=== PATIENT | male | born 1995 | race Caucasian/White ===

== ENCOUNTER 2016-10-13 19:09 | Inpatient (IN) | payer OTHER ==
[~2016-10-13] VITALS: Ht 180.3 cm; Wt 66.1 kg
[2016-10-13] VITALS (7 sets, daily range): BP systolic 115–129; BP diastolic 51–68; PULSE 92–108; RESP 20; TEMP 97.3–98.3; O2SAT 98–100
[~2016-10-13 19:09] MED LIST: NOVO7030P2 SQ
[2016-10-13] MEDS ORDERED: SODIUM CHLOR 0.9% 1000 ML INJ 1,000 ML IV ONE ×2 (19:19→19:49)
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
[2016-10-13] MEDS ORDERED: SODIUM CHLORIDE 0.9% FLUSH 5 ML FLUSH IVF PRN ×2 (19:30→21:45)
[2016-10-13] MEDS ORDERED: ONDANSETRON HCL 4 MG/2 ML VIAL IV PUSH ONE (19:30)
[2016-10-13 19:37] LABS: BLOOD GAS VENOUS BASE EXCESS -23.1 mmol/L (-2-2); BLOOD GAS VENOUS HCO3 6 mmol/L (22-26); BLOOD GAS VENOUS O2 CONTENT 16.2 Vol % (9.0-17.0); BLOOD GAS VENOUS O2 HGB SAT 70 % (70-76); BLOOD GAS VENOUS PCO2 25 mmHg (44-48); BLOOD GAS VENOUS PO2 49 mmHg (35-40); TEMP CORR TO 98.6
[2016-10-13 19:39] LABS: CRITICAL VALUE YES; DRAW SITE R ARM; FIO2 21 %; STAT YES
[2016-10-13 19:44] LABS: AUTOMATED NEUTROPHIL # 15.1 TH/MM3 (1.8-7.7); BASOPHIL % 0.2 % (0.0-2.0); EOSINOPHIL % 0.1 % (0.0-4.0); HEMATOCRIT 48.9 % (39.0-51.0); LYMPH % 10.5 % (9.0-44.0); LYMPHOCYTE # 1.9 TH/MM3 (1.0-4.8); MEAN CELL VOLUME 84.2 FL (80.0-100.0); MEAN CORPUSCULAR HEMOGLOBIN 27.8 PG (27.0-34.0); MONO % 5.6 % (0.0-8.0); NEUT % 83.6 % (16.0-70.0); PLATELET COUNT 247 TH/MM3 (150-450)
[2016-10-13 19:45] LABS: HEMO FLAGS AUTO DIFF
[2016-10-13] MEDS ORDERED: INSULIN REGULAR (IV INFUSION) 100 UNITS in SODIUM CHLORIDE 0.9% INJ 99 ML IV SCH (19:45)
[2016-10-13] MEDS ORDERED: SODIUM BICARBONATE 8.4% SOLN 50 MEQ/50 ML VIAL IV PRN ×2 (19:45)
[2016-10-13] MEDS ORDERED: POTASSIUM CHLOR 40 MEQ PREMIX 100 ML IV PRN ×2 (19:45)
[2016-10-13] MEDS ORDERED: INSULIN HUMAN REGULAR 1,000 UNITS/10 ML VIAL IV PUSH ONE (19:45)
[2016-10-13] MEDS ORDERED: POTASSIUM CHLOR 20 MEQ PREMIX 100 ML IV PRN ×3 (19:45)
[2016-10-13] MEDS ORDERED: SODIUM PHOSPHATE INJ 15 MMOL in SODIUM CHLORIDE 0.9% INJ 100 ML IV PRN (19:45)
--- NOTE | 2016-10-13 19:51 | RADHPO ---
EXAM DATE/TIME: 10/13/2016 19:25 [place] COMPARISON: No previous studies available for comparison. INDICATIONS : Chest pain and short of breath. MEDICAL HISTORY : Diabetes mellitus type I. SURGICAL HISTORY : None. ENCOUNTER: Initial ACUITY: 1 day PAIN SCORE: 8/10 LOCATION: Bilateral chest FINDINGS: A single view of the chest demonstrates the lungs to be symmetrically aerated without evidence of mas s, infiltrate or effusion. The cardiomediastinal contours are unremarkable. Osseous structures are intact. CONCLUSION: No evidence of acute cardiopulmonary disease. Jimbo Zhao MD on October 13, 2016 at 19:50 Board Certified Radiologist. This report was verified electronically.
[2016-10-13 19:52] LABS: CHLORIDE 108 MEQ/L (98-107); SODIUM (NA) 142 MEQ/L (136-145)
[2016-10-13 19:56] LABS: ANION GAP 30 MEQ/L (5-15); BLOOD UREA NITROGEN 11 MG/DL (7-18); MAGNESIUM 2.1 MG/DL (1.5-2.5)
[2016-10-13 19:59] LABS: ALT (GPT) 49 U/L (12-78); AST (GOT) 29 U/L (15-37); GLOMERULAR FILTRATION RATE 76 ML/MIN (>89)
[2016-10-13 20:00] LABS: TOTAL BILIRUBIN ADULT 0.5 MG/DL (0.2-1.0)
[2016-10-13] MEDS: POTASSIUM CHLOR 20 MEQ PREMIX 100 ML IV PRN ×3 (20:00→22:13)
[2016-10-13 20:02] LABS: ALKALINE PHOSPHATASE 106 U/L (45-117)
[2016-10-13 20:03] LABS: PLATELET ESTIMATE SMEAR NORMAL (NORMAL); PLATELET MORPHOLOGY NORMAL (NORMAL); SCAN/DIFF AUTO DIFF CONFIRMED
[2016-10-13] MEDS: SODIUM CHLOR 0.9% 1000 ML INJ 1,000 ML IV SCH ×2 (20:12→23:43)
[2016-10-13] MEDS ORDERED: ACETAMINOPHEN 325 MG TAB PO PRN (20:15)
[2016-10-13] MEDS ORDERED: CHLORHEXIDINE GLUCONATE 2 % 1 PACK (2 CLOTHS) TOP PRN (20:15)
[2016-10-13] MEDS ORDERED: ACETAMINOPHEN/HYDROcodone 325 MG/10 MG TAB PO PRN (20:15)
[2016-10-13] MEDS ORDERED: BISACODYL 10 MG SUPP PR PRN (20:15)
[2016-10-13] MEDS ORDERED: SODIUM CHLORIDE 0.9% FLUSH 5 ML FLUSH FLUSH PRN (20:15)
[2016-10-13] MEDS ORDERED: ACETAMINOPHEN/HYDROcodone 325 MG/5 MG TAB PO PRN (20:15)
[2016-10-13] MEDS ORDERED: MISCELLANEOUS NURSING INFORMATION XX SCH (20:15)
[2016-10-13] MEDS ORDERED: ONDANSETRON HCL 4 MG/2 ML VIAL IVP PRN (20:15)
[2016-10-13 20:22] LABS: BETA-HYDROXYBUTYRATE 10.21 MMOL/L (0.00-0.39)
[2016-10-13] MEDS ORDERED: SODIUM CHLORIDE 0.9% FLUSH 5 ML FLUSH FLUSH SCH (21:00)
[2016-10-13] MEDS: DEXT 5%-NACL 0.9% 1000 ML INJ 1,000 ML IV SCH (21:45)
[2016-10-13 22:07] LABS: BLOOD, URINE TRACE (NEG); GLUCOSE,URINE 500 mg/dL (NEG); KETONE, URINE 80 OR GREATER mg/dL (NEG); NITRITE,URINE NEG (NEG); PH, URINE 5.5 (5.0-8.5)
[2016-10-13 22:10] LABS: URINE COLOR STRAW (YELLW/STRAW)
[2016-10-13 22:11] LABS: COMMENT (UR) CULT NOT INDICATED; CULTURE IF INDICATED CULT NOT INDICATED; RBC, URINE 0-3 /hpf (0-3); SQUAMOUS EPITHELIAL CELL URINE 0-5 /hpf (0-5); WBC, URINE 0-2 /hpf (0-5)
[2016-10-14] VITALS (25 sets, daily range): BP systolic 90–113; BP diastolic 7–73; PULSE 10–108; RESP 14–20; TEMP 98–98.1; O2SAT 97–100
[2016-10-14] MEDS: POTASSIUM CHLOR 20 MEQ PREMIX 100 ML IV PRN ×4 (00:37→08:45)
[2016-10-14] MEDS: DEXT 5%-NACL 0.9% 1000 ML INJ 1,000 ML IV SCH ×2 (00:43→08:10)
[2016-10-14 01:58] LABS: BICARBONATE 7.8 MEQ/L (21.0-32.0); MAGNESIUM 2.1 MG/DL (1.5-2.5); POTASSIUM 4.2 MEQ/L (3.5-5.1)
[2016-10-14] MEDS: SODIUM CHLOR 0.9% 1000 ML INJ 1,000 ML IV SCH (03:43)
[2016-10-14] MEDS: CHLORHEXIDINE GLUCONATE 2 % 1 PACK (2 CLOTHS) TOP SCH (04:00)
[2016-10-14 07:46] LABS: AUTOMATED NEUTROPHIL # 6.4 TH/MM3 (1.8-7.7); BASOPHIL # 0.1 TH/MM3 (0-0.2); BASOPHIL % 1.2 % (0.0-2.0); EOSINOPHIL % 0.3 % (0.0-4.0); HEMATOCRIT 39.4 % (39.0-51.0); HEMO FLAGS DIFF FINAL; LYMPH % 26.3 % (9.0-44.0); LYMPHOCYTE # 2.7 TH/MM3 (1.0-4.8); MEAN CELL VOLUME 82.7 FL (80.0-100.0); MEAN CORPUSCULAR HEMOGLOBIN 27.8 PG (27.0-34.0); MEAN CORPUSCULAR HGB CONC 33.6 % (32.0-36.0); MONO % 8.7 % (0.0-8.0); NEUT % 63.5 % (16.0-70.0); PLATELET COUNT 185 TH/MM3 (150-450); RED BLOOD COUNT 4.77 MIL/MM3 (4.50-5.90); RED CELL DISTRIBUTION WIDTH 12.1 % (11.6-17.2); WHITE BLOOD COUNT 10.1 TH/MM3 (4.0-11.0)
[2016-10-14 07:58] LABS: BICARBONATE 17.8 MEQ/L (21.0-32.0); MAGNESIUM 1.9 MG/DL (1.5-2.5); POTASSIUM 3.3 MEQ/L (3.5-5.1)
[2016-10-14 08:20] LABS: BETA-HYDROXYBUTYRATE 1.05 MMOL/L (0.00-0.39)
[2016-10-14] MEDS: SODIUM CHLORIDE 0.9% FLUSH 5 ML FLUSH IVF SCH ×2 (08:49→21:00)
--- NOTE | 2016-10-14 08:59 | HHI.HP ---
[facility] Service [facility] Primary Care Physician No Primary Care Physician Admission Diagnosis DKA; sirs Diagnoses: (1) SIRS (systemic inflammatory response syndrome) Diagnosis: Principal (2) DKA (diabetic ketoacidosis) Diagnosis: Principal (3) Hypokalemia Diagnosis: Principal Chief Complaint: "In DKA" Travel History International Travel<30 Days: No Contact w/Intl Traveler <30 Da: No Traveled to Known Affected Are: No Sepsis Criteria SIRS Criteria (2 or more): Heart rate over 90, WBC > 77818, < 4000 or > 10% bands Criteria Outcome: Meets SIRS criteria History of Present Illness 20-year-old male, type I diabetic presents stating he is in DKA. The patient states it's been a while since his last episode although he was recently admitted in May of this year for DKA and this is the 6th time this year he has been admitted for DKA. The patient states he stayed the night at his cousin's house and forgot to take his insulin just overnight. He admits to polyuria and polydipsia. Admits to vomiting. Denies any headache, blurred vision, cough, chest pain, shortness of breath, diarrhea, or constipation. He desires something to drink. Review of Systems Other ROS x 10 negative unless otherwise indicated in HPI. Past Family Social History Past Medical History Type 1 diabetes Right hand fracture Past Surgical History Tonsillectomy Reported Medications Novolin 70/30 (Insulin Human Isoph/Insulin Regular) 100 Units/Ml Inj 25 Units SQ BID, confirmed with patient Allergies: Coded Allergies: No Known Allergies (Verified , 06/07/16) Family History No significant family history. Social History Patient smokes one pack per day of cigarettes. Denies alcohol use. Denies illicit drug use including IVDA. Physical Exam Vital Signs Vital Signs Date Time Temp Pulse Resp B/P Pulse Ox O2 Delivery O2 Flow Rate FiO2 10/14/16 07:35 14 98 Room Air 10/14/16 07:35 72 14 98 Room Air 10/14/16 07:25 98.0 72 14 98/50 98 Room Air 10/14/16 06:24 80 20 101/49 99 10/14/16 05:00 84 20 99/45 98 10/14/16 04:00 84 20 109/54 98 10/14/16 03:00 108 20 99/71 99 10/14/16 02:00 94 20 101/50 99 10/14/16 01:00 100 20 106/54 100 10/14/16 00:00 100 20 113/54 99 10/13/16 23:42 100 21 10/13/16 22:59 108 20 118/51 100 10/13/16 22:00 98.3 101 20 115/65 100 10/13/16 21:14 98 20 100 10/13/16 21:08 98.3 92 20 128/68 100 10/13/16 20:00 98 20 129/57 98 10/13/16 19:35 100 20 123/60 100 10/13/16 19:10 97.3 98 20 125/64 100 Physical Exam GENERAL: This is a well-nourished, well-developed patient, in no apparent distress. Appears tired. SKIN: No rashes, ecchymoses or lesions. Cool and dry. HEAD: Atraumatic. Normocephalic. EYES: Pupils normal. No scleral icterus. ENT: Mucous membranes dry. Poor dentition. Airway patent. NECK: Trachea midline. CARDIOVASCULAR: Regular rate and rhythm. RESPIRATORY: Clear to auscultation. Breath sounds equal bilaterally. No wheezes , rales, or rhonchi. GASTROINTESTINAL: Abdomen soft, non-tender, nondistended. MUSCULOSKELETAL: No lower extremity edema. NEUROLOGICAL: Awake and alert. Motor grossly within normal limits. Normal speech. Laboratory Laboratory Tests Test 10/13/16 10/13/16 10/13/16 10/14/16 19:30 21:30 22:00 01:36 White Blood Count 18.0 Red Blood Count 5.80 Hemoglobin 16.1 Hematocrit 48.9 Mean Corpuscular Volume 84.2 Mean Corpuscular Hemoglobin 27.8 Mean Corpuscular Hemoglobin 33.0 Concent Red Cell Distribution Width 12.0 Platelet Count 247 Mean Platelet Volume 8.9 Neutrophils (%) (Auto) 83.6 Lymphocytes (%) (Auto) 10.5 Monocytes (%) (Auto) 5.6 Eosinophils (%) (Auto) 0.1 Basophils (%) (Auto) 0.2 Neutrophils # (Auto) 15.1 Lymphocytes # (Auto) 1.9 Monocytes # (Auto) 1.0 Eosinophils # (Auto) 0.0 Basophils # (Auto) 0.0 CBC Comment AUTO DIFF Differential Comment AUTO DIFF CONFIRMED Platelet Estimate NORMAL Platelet Morphology Comment NORMAL Red Cell Morphology Comment NORMAL Blood Gas Puncture Site R ARM Blood Gas Patient Temperature 98.6 Venous Blood pH 7.00 Venous Blood Partial Pressure 25 CO2 Venous Blood Partial Pressure 49 O2 Venous Blood HCO3 6 Venous Blood Oxygen Saturation 70 Venous Blood Oxygen Content 16.2 Venous Blood Base Excess -23.1 Blood Gas Inspired Oxygen 21 Sodium Level 142 146 Potassium Level 5.0 4.2 Chloride Level 108 119 Carbon Dioxide Level 4.0 7.8 Anion Gap 30 19 Blood Urea Nitrogen 11 8 Creatinine 1.20 1.10 Estimat Glomerular Filtration 76 84 Rate Random Glucose 383 229 Lactic Acid Level 2.5 0.8 Calcium Level 8.1 7.9 Phosphorus Level 5.9 1.4 Magnesium Level 2.1 2.1 Total Bilirubin 0.5 Aspartate Amino Transf 29 (AST/SGOT) Alanine Aminotransferase 49 (ALT/SGPT) Alkaline Phosphatase 106 Troponin I LESS THAN 0.02 Total Protein 8.0 Albumin 4.3 Lipase 71 B-Hydroxybutyrate 10.21 Urine Color STRAW Urine Turbidity CLEAR Urine pH 5.5 Urine Specific [place] 1.021 Urine Protein 30 Urine Glucose (UA) 500 Urine Ketones 80 OR GREATER Urine Occult Blood TRACE Urine Nitrite NEG Urine Bilirubin NEG Urine Leukocyte Esterase NEG Urine RBC 0-3 Urine WBC 0-2 Urine Squamous Epithelial 0-5 Cells Urine Bacteria NONE Microscopic Urinalysis Comment CULT NOT INDICATED Test 10/14/16 07:35 White Blood Count 10.1 Red Blood Count 4.77 Hemoglobin 13.3 Hematocrit 39.4 Mean Corpuscular Volume 82.7 Mean Corpuscular Hemoglobin 27.8 Mean Corpuscular Hemoglobin 33.6 Concent Red Cell Distribution Width 12.1 Platelet Count 185 Mean Platelet Volume 8.5 Neutrophils (%) (Auto) 63.5 Lymphocytes (%) (Auto) 26.3 Monocytes (%) (Auto) 8.7 Eosinophils (%) (Auto) 0.3 Basophils (%) (Auto) 1.2 Neutrophils # (Auto) 6.4 Lymphocytes # (Auto) 2.7 Monocytes # (Auto) 0.9 Eosinophils # (Auto) 0.0 Basophils # (Auto) 0.1 CBC Comment DIFF FINAL Differential Comment Sodium Level 147 Potassium Level 3.3 Chloride Level 120 Carbon Dioxide Level 17.8 Anion Gap 9 Blood Urea Nitrogen 7 Creatinine 1.00 Estimat Glomerular Filtration 93 Rate Random Glucose 163 Calcium Level 7.8 Phosphorus Level 1.2 Magnesium Level 1.9 B-Hydroxybutyrate 1.05 Date/Time Procedure Status Source Growth 10/13/16 20:05 Aerobic Blood Culture Received Blood Peripheral Pending 10/13/16 20:05 Anaerobic Blood Culture Received Blood Peripheral Pending Result Diagram: 10/14/16 0735 10/14/16 0735 Imaging Last Impressions Chest X-Ray 10/13/16 1919 Signed Impressions: Service Date/Time: Thursday, October 13, 2016 19:25 - CONCLUSION: No evidence of acute cardiopulmonary disease. Jimbo Zhao MD Assessment and Plan Assessment and Plan 20-year-old male with: SIRS: White blood cell count 18.0-->10.1. Tachycardic at 108. No source of infection. DKA: Improved. Patient had vomiting. BGL 383 in ED-->135 bedside just prior to evaluation. pH 7.00. Anion gap 30 now closed. Beta hydroxybutyrate 10.21 improved to 1.05. Lactic acid 2.5-->0.8. Phos 5.9-->1.4. Chest x-ray personally interpreted without acute abnormality. -Patient was started on DKA protocol with insulin drip. Discontinue insulin drip. Start on Novolin 70/30 15 units bid with medium SSI. Bedside Accu-checks. -NPO for now, ice chips -Zofran prn nausea -Monitor BMP -Hemoglobin A1c pending Hypokalemia: 5.0-->3.3 -RN instructed to replace via protocol -Monitor K+ level DVT prevention: SCDs Case management consulted for PCP follow-up, blue card if possible. Written by Zeny Mata PA-C acting as scribe for Dr. Rowell on 10/14/16 at ~ 0835. The documentation accurately reflects the work and decisions performed face-to- face by me Dr. Rowell on 10/14/16 at ~0835. Physician Certification 2 Midnight Certification Type: Admission for Inpatient Services Order for Inpatient Services The services are ordered in accordance with Medicare regulations or non- Medicare payer requirements, as applicable. In the case of services not specified as inpatient-only, they are appropriately provided as inpatient services in accordance with the 2-midnight benchmark. Estimated LOS (days): 2 days is the estimated time the patient will need to remain in the hospital, assuming treatment plan goals are met and no additional complications. Post-Hospital Plan: Home Problem Qualifiers (1) DKA (diabetic ketoacidosis): Qualified Code: E10.10 - Diabetic ketoacidosis without coma associated with type 1 diabetes mellitus Zeny Mata Oct 14, 2016 08:59
[2016-10-14] MEDS ORDERED: DEXTROSE 50% IN WATER 50 ML VIAL(D50) IV PUSH PRN (09:30)
[2016-10-14] MEDS ORDERED: GLUCAGON 1 MG/ML VIAL OTHER PRN (09:30)
[2016-10-14] MEDS ORDERED: DC previous DKA orders (HMC 1917) XX ONE (10:00)
[2016-10-14] MEDS: INSULIN ASPART SUPPLEMENTAL SCALE SQ SCH ×3 (11:00→22:00)
[2016-10-14] MEDS: NS + KCL 20 MEQ INJ 1,000 ML IV SCH ×2 (12:02→22:00)
--- NOTE | 2016-10-14 13:06 | EKG ---
Date Performed: 10/13/2016 Time Performed: 19:40:06 PTAGE: 20 years EKG: Sinus rhythm . Biphasic anterior T-waves Myocardial ischemia cannot be excluded Abnormal ECG Compared to PREVIOUS TRACING , there has been no significant serial change. PREVIOUS TRACIN 016 22.36 DOCTOR: Denisse Floyd Interpretating Date/Time 10/14/2016 13:05:15
[2016-10-14 13:58] LABS: BICARBONATE 17.9 MEQ/L (21.0-32.0); MAGNESIUM 1.6 MG/DL (1.5-2.5); POTASSIUM 3.6 MEQ/L (3.5-5.1)
[2016-10-14] MEDS ORDERED: INSULIN ASPART 1,000 UNITS/10 ML VIAL SQ ONE (14:00)
[2016-10-14] MEDS: INSULIN HUMAN NPH/R 70/30 1,000 UNITS/10 ML VIAL SQ SCH (17:05)
[2016-10-14 20:38] LABS: BETA-HYDROXYBUTYRATE 0.53 MMOL/L (0.00-0.39); MAGNESIUM 1.4 MG/DL (1.5-2.5); POTASSIUM 5.9 MEQ/L (3.5-5.1)
[2016-10-14 20:59] LABS: CALCIUM-PROTEIN CORRECTED 7.9 MG/DL (8.5-10.1)
[2016-10-15] VITALS (13 sets, daily range): BP systolic 92–111; BP diastolic 47–67; PULSE 46–80; RESP 15–18; TEMP 97.7–98; O2SAT 95–96
[2016-10-15] MEDS: CHLORHEXIDINE GLUCONATE 2 % 1 PACK (2 CLOTHS) TOP SCH (04:00)
[2016-10-15] MEDS: INSULIN ASPART SUPPLEMENTAL SCALE SQ SCH ×2 (06:30→12:02)
[2016-10-15] MEDS: INSULIN HUMAN NPH/R 70/30 1,000 UNITS/10 ML VIAL SQ SCH (07:43)
[2016-10-15] MEDS: NS + KCL 20 MEQ INJ 1,000 ML IV SCH (07:43)
[2016-10-15] MEDS: SODIUM CHLORIDE 0.9% FLUSH 5 ML FLUSH IVF SCH (07:45)
[2016-10-15 09:17] LABS: BICARBONATE 22.4 MEQ/L (21.0-32.0); CALCIUM-PROTEIN CORRECTED 8.5 MG/DL (8.5-10.1); MAGNESIUM 1.5 MG/DL (1.5-2.5); TOTAL BILIRUBIN ADULT 0.2 MG/DL (0.2-1.0)
[2016-10-15] MEDS ORDERED: POTASSIUM CHLORIDE 20 MEQ CONTROLLED RELEASE TAB PO ONE (11:45)
[2016-10-15] MEDS: MAGNESIUM SULFATE 1 GM PREMIX 100 ML IV SCH ×2 (12:02→13:32)
--- NOTE | 2016-10-15 12:28 | HHI.DCPOC ---
Discharge Care Plan Diagnosis: (1) SIRS (systemic inflammatory response syndrome) (2) DKA (diabetic ketoacidosis) (3) Hypokalemia Goals to Promote Your Health * To prevent worsening of your condition and complications * To maintain your health at the optimal level Directions to Meet Your Goals Take your medications as prescribed Follow your dietary instruction Follow activity as directed Keep your appointments as scheduled Take your immunizations and boosters as scheduled If your symptoms worsen call your PCP, if no PCP go to Urgent Care Center or Emergency Room Smoking is Dangerous to Your Health. Avoid second hand smoke Call the 24-hour hour crisis hotline for domestic abuse at Zeny Mata Oct 15, 2016 12:28
--- NOTE | 2016-10-15 12:39 | HHI.PR ---
Subjective Remarks F/u for DKA. Patient improved. Eating when we enter the room. No acute complaints. Objective Vitals Vital Signs Date Time Temp Pulse Resp B/P Pulse Ox O2 Delivery O2 Flow Rate FiO2 10/15/16 12:11 50 10/15/16 10:00 50 10/15/16 09:00 64 18 106/55 10/15/16 08:00 50 10/15/16 08:00 98.0 54 15 97/57 10/15/16 07:00 46 15 93/49 10/15/16 06:00 59 10/15/16 05:00 50 16 102/67 96 10/15/16 04:00 98.0 69 16 95/47 95 10/15/16 04:00 65 10/15/16 03:00 66 16 92/52 96 10/15/16 02:00 54 16 103/58 96 10/15/16 02:00 80 10/15/16 00:30 98.0 57 18 111/59 96 10/15/16 00:30 77 10/14/16 23:54 74 16 99/52 99 Room Air 10/14/16 21:52 78 16 90/49 10/14/16 20:00 98 21 10/14/16 19:33 98 Room Air 10/14/16 19:33 85 97/56 98 Room Air 10/14/16 18:25 67 15 101/51 100 Room Air 10/14/16 17:25 75 15 110/57 99 Room Air 10/14/16 16:25 98.1 66 15 97/52 99 Room Air 10/14/16 15:25 64 16 103/51 98 Room Air 10/14/16 14:25 66 15 99/54 98 Room Air 10/14/16 13:25 68 14 107/52 98 Room Air I/O 10/14/16 10/14/16 10/14/16 10/15/16 10/15/16 10/15/16 07:00 15:00 23:00 07:00 15:00 23:00 Intake Total 1000 ml 992 ml 120 ml Output Total 800 ml 1145 ml 600 ml 450 ml 250 ml Balance 200 ml -1145 ml -600 ml 542 ml -130 ml Intake Oral 480 ml 120 ml IV Total 1000 ml 512 ml Output Urine Total 800 ml 1145 ml 600 ml 450 ml 250 ml # Voids 2 1 # Bowel Movements 0 Result Diagram: 10/14/16 0735 10/15/16 0837 Objective Remarks GENERAL: Well nourished, well developed patient in no apparent distress sitting in chair eating. SKIN: Warm and dry. HEAD: Atraumatic. Normocephalic. EYES: No scleral icterus. No injection or drainage. CARDIOVASCULAR: Regular rate and rhythm. RESPIRATORY: No accessory muscle use. Clear to auscultation. Breath sounds equal bilaterally. MUSCULOSKELETAL: No lower extremity edema. NEUROLOGICAL: Awake and alert. Motor grossly within normal limits. Normal speech. PSYCHIATRIC: Appropriate mood and affect; insight and judgment normal. Urinary Catheter: No Vascular Central Line Catheter: No A/P Problem List: (1) SIRS (systemic inflammatory response syndrome) ICD Code: R65.10 Status: Acute (2) DKA (diabetic ketoacidosis) ICD Code: E13.10 Status: Acute (3) Hypokalemia ICD Code: E87.6 Status: Acute Assessment and Plan 20-year-old male with: SIRS: White blood cell count 18.0-->10.1. Tachycardia at 108 resolved. No source of infection. DKA: Improved. BGL 186 at 1202. Patient had vomiting. BGL 383 in ED. pH 7.00. Anion gap 30 now closed. Beta hydroxybutyrate 10.21 improved to 0.53. Lactic acid 2.5-->0.8. Chest x-ray personally interpreted without acute abnormality. -Patient was started on DKA protocol with insulin drip. Insulin drip discontinued. Continue Novolin 70/30 15 units bid with medium SSI. Bedside Accu- checks. -Diabetic diet -Zofran prn nausea -Monitor BMP -Hemoglobin A1c pending Hypokalemia: 3.0. Mg 1.5 -40 mEq po KCl ordered. 2 g IV Mg sulfate ordered. DVT prevention: SCDs Written by Zeny Mata PA-C acting as scribe for Dr. Kendrick on 10/15/16 at ~ 1215. The documentation accurately reflects the work and decisions performed face-to- face by me Dr. Kendrick on 10/15/16 at ~1215. Discharge disposition: Home in stable condition Diet: Diabetic Medications: Resume Novolin 70/30 25 units bid. Patient states he has enough. Activity: Regular Follow up: PCP 2-3 days. Discharge Planning Patient stable for discharge. Case management consulted for PCP follow-up, blue card if possible. I spoke with CM who will speak with patient. Patient can get glucometer over the counter per CM since he is self pay. Problem Qualifiers (1) DKA (diabetic ketoacidosis): Qualified Code: E10.10 - Diabetic ketoacidosis without coma associated with type 1 diabetes mellitus Zeny Mata Oct 15, 2016 12:38
[2016-10-15 17:40] LABS: HEMOGLOBIN A1a 1.7 %; HEMOGLOBIN A1b 1.2 %; HEMOGLOBIN F 2.7 %; HEMOGLOBIN LA1C 3.4 %; HEMOGLOBIN P3 5.2 %
[2016-10-23] MEDS ORDERED: NOVO7030P2 SQ ×3 (15:50→17:06)
[2016-10-23] MEDS ORDERED: BLOOD GLUCOSE T1 TES ×2 (16:34→17:06)
[2016-10-23] MEDS ORDERED: NOVORP2 SQ (17:03)
[2016-10-24] MEDS ORDERED: NOVO7030P2 SQ (15:17)
== END 2016-10-15 14:55 | disposition home or self-care (01) | DRG 639 ==
LOC: PHED 19:09 → PHEDA 21:38 → PHEDH 10-14 00:32 → PHICU 10-15 00:29
PROVIDERS: ADMIT Family Medicine; ATTEND Family Medicine
DX: E10.10 Type 1 diabetes mellitus with ketoacidosis without coma (principal); E87.6 Hypokalemia; F17.210 Nicotine dependence, cigarettes, uncomplicated; Z79.4 Long term (current) use of insulin
CPT/HCPCS: 71010; 80048; 80053; 81001; 82010; 82805; 82948; 83036; 83605; 83690; 83735; 84100; 84155; 84484; 85025; 87040; 87205; 87641; 93005; 96361; 96365; 96366; 96368; 96374; 96375; 96376; J1815; J1817; J2405; J3475; J3480; J7030; J7042

== ENCOUNTER 2017-05-16 22:53 | Emergency (ER) | payer OTHER ==
[~2017-05-16] VITALS: Ht 180.3 cm; Wt 71.8 kg
[~2017-05-16 22:53] MED LIST changes: +BLOOD GLUCOSE T1 TES
[2017-05-16 22:56] VITALS: BP 120/63; PULSE 75; RESP 16; TEMP 97.9; O2SAT 99
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
[2017-05-16] MEDS ORDERED: ACETAMINOPHEN/HYDROcodone 325 MG/5 MG TAB PO ONE (23:30)
[2017-05-16] MEDS ORDERED: IBUPROFEN 600 MG TAB PO ONE (23:30)
[2017-05-16] MEDS ORDERED: ZOLO25TA PO (23:41)
[2017-05-16] MEDS ORDERED: NOVO7030P2 SQ (23:43)
[2017-05-16] MEDS: LIDOCAINE HCL 1% PF 30 ML VIAL INFIL ONE (23:45)
--- NOTE | 2017-05-16 23:46 | RADRPT ---
EXAM DATE/TIME: 05/16/2017 23:14 [facility] COMPARISON: No previous studies available for comparison. INDICATIONS : Patient slammed distal right 4th digit in car door today MEDICAL HISTORY : Prev. 5th metacarpal fracture SURGICAL HISTORY : None. ENCOUNTER: Initial ACUITY: 1 day PAIN SCORE: 10/10 LOCATION: Right distal 4th digit FINDINGS: There is a fracture of the distal tuft of the fourth digit. No intra-articular extension is present. Bony mineralization is normal. Old fracture of the fifth metacarpal is present. CONCLUSION: 1. Fracture distal phalanx fourth digit Pedro Singh MD on May 16, 2017 at 23:43 Board Certified Radiologist. This report was verified electronically.
[2017-05-16] MEDS ORDERED: CEPH-460 PO (23:54)
[2017-05-16] MEDS ORDERED: HYDR-3533 PO (23:54)
[2017-05-17] MEDS ORDERED: CEPHALEXIN MONOHYDRATE 500 MG CAP PO ONE
[2017-05-17 00:45] VITALS: RESP 18
[2017-05-17] MEDS: LIDOCAINE HCL 1% PF 30 ML VIAL INFIL ONE (00:48)
[2017-05-17 01:28] VITALS: BP 100/58
== END 2017-05-17 01:29 | disposition home or self-care (01) ==
LOC: PHED 22:53
DX: S62.634A Displaced fracture of distal phalanx of right ring finger, initial encounter for closed fracture (principal); W23.0XXA Caught, crushed, jammed, or pinched between moving objects, initial encounter
CPT/HCPCS: 29130; 64450; 73140

== ENCOUNTER 2017-07-11 20:37 | Emergency (ER) | payer SELFPAY ==
[~2017-07-11] VITALS: Ht 180.3 cm; Wt 67.6 kg
[~2017-07-11 20:37] MED LIST changes: -BLOOD GLUCOSE T1 TES; +CEPH-460 PO; +HYDR-3533 PO; +ZOLO25TA PO
[2017-07-11] MEDS ORDERED: IOHEXOL 350 MG/ML 10 ML VIAL (for RAD DIAG) IVCONTRAST ONE (20:38)
[2017-07-11 20:41] VITALS: BP 111/61; PULSE 80; RESP 14; TEMP 98.4; O2SAT 96
[2017-07-11] MEDS ORDERED: SODIUM CHLOR 0.9% 1000 ML INJ 1,000 ML IV SCH (20:58)
[2017-07-11] MEDS ORDERED: ONDANSETRON HCL 4 MG/2 ML VIAL IVP ONE (21:00)
[2017-07-11] MEDS ORDERED: MORPHINE SULFATE 4 MG/ML INJ IV PUSH ONE (21:00)
[2017-07-11] MEDS ORDERED: SODIUM CHLORIDE 0.9% FLUSH 10 ML FLUSH IV FLUSH PRN (21:00)
[2017-07-11 21:14] VITALS: BP 102/67; PULSE 76; RESP 20; O2SAT 96
[2017-07-11 21:16] LABS: AUTOMATED NEUTROPHIL # 3.6 TH/MM3 (1.8-7.7); BASOPHIL % 0.2 % (0.0-2.0); EOSINOPHIL # 0.1 TH/MM3 (0-0.4); HEMATOCRIT 46.4 % (39.0-51.0); HEMO FLAGS DIFF FINAL; LYMPH % 19.7 % (9.0-44.0); LYMPHOCYTE # 1.1 TH/MM3 (1.0-4.8); MEAN CORPUSCULAR HEMOGLOBIN 28.4 PG (27.0-34.0); MEAN CORPUSCULAR HGB CONC 33.8 % (32.0-36.0); NEUT % 66.1 % (16.0-70.0); PLATELET COUNT 227 TH/MM3 (150-450); RED BLOOD COUNT 5.52 MIL/MM3 (4.50-5.90); RED CELL DISTRIBUTION WIDTH 12.2 % (11.6-17.2); WHITE BLOOD COUNT 5.5 TH/MM3 (4.0-11.0)
[2017-07-11 21:23] LABS: CHLORIDE 98 MEQ/L (98-107); POTASSIUM 4.1 MEQ/L (3.5-5.1); SODIUM (NA) 131 MEQ/L (136-145)
[2017-07-11 21:28] LABS: ANION GAP 9 MEQ/L (5-15); BICARBONATE 23.8 MEQ/L (21.0-32.0); BLOOD UREA NITROGEN 15 MG/DL (7-18)
[2017-07-11 21:31] LABS: ALT (GPT) 36 U/L (12-78); AST (GOT) 14 U/L (15-37); GLOMERULAR FILTRATION RATE 93 ML/MIN (>89)
[2017-07-11 21:32] LABS: TOTAL BILIRUBIN ADULT 0.5 MG/DL (0.2-1.0)
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
[2017-07-11 21:34] LABS: ALKALINE PHOSPHATASE 92 U/L (45-117)
[2017-07-11] MEDS ORDERED: SODIUM CHLOR 0.9% 1000 ML INJ 1,000 ML IV ONE (22:00)
[2017-07-11] MEDS ORDERED: INSULIN HUMAN REGULAR 1,000 UNITS/10 ML VIAL IV PUSH ONE (22:00)
[2017-07-11] MEDS ORDERED: ZOLO50TA PO (22:02)
[2017-07-11 22:15] VITALS: BP 116/62; PULSE 63; RESP 20; O2SAT 96
--- NOTE | 2017-07-11 22:23 | RADRPT ---
EXAM DATE/TIME: 07/11/2017 21:54 [facility] COMPARISON: CT ABDOMEN & PELVIS W CONTRAST, February 27, 2016, 7:19. INDICATIONS : Abdominal pain with nausea, vomiting and diarrhea. IV CONTRAST: 96 cc Omnipaque 350 (iohexol) IV ORAL CONTRAST: No oral contrast ingested. RADIATION DOSE: 6.13 CTDIvol (mGy) MEDICAL HISTORY : Diabetes mellitus type 1. SURGICAL HISTORY : None. ENCOUNTER: Initial ACUITY: 1 day PAIN SCALE: 8/10 LOCATION: middle abdomen TECHNIQUE: Volumetric scanning of the abdomen and pelvis was performed. Using automated exposure control and ad justment of the mA and/or kV according to patient size, radiation dose was kept as low as reasonably achievable to obtain optimal diagnostic quality images. DICOM format image data is available electro nically for review and comparison. FINDINGS: LOWER LUNGS: The visualized lower lungs are clear. LIVER: Homogeneous density without lesion. There is no dilation of the biliary tree. No calcified gallston es. SPLEEN: Normal size without lesion. PANCREAS: Within normal limits. KIDNEYS: Normal in size and shape. There is no mass, stone or hydronephrosis. ADRENAL GLANDS: Within normal limits. VASCULAR: There is no aortic aneurysm. BOWEL/MESENTERY: The stomach, small bowel, and colon demonstrate no acute abnormality. There is no free intraperitone al air or fluid. I don't clearly see the appendix but no right lower quadrant inflammatory changes ar e seen. ABDOMINAL WALL: Within normal limits. RETROPERITONEUM: There is no lymphadenopathy. BLADDER: No wall thickening or mass. REPRODUCTIVE: Within normal limits. INGUINAL: There is no lymphadenopathy or hernia. MUSCULOSKELETAL: No acute bony abnormality demonstrated. Mild S. shaped thoracolumbar curvature again noted. CONCLUSION: No acute abnormality demonstrated. Jimbo Zhao MD on July 11, 2017 at 22:20 Board Certified Radiologist. This report was verified electronically.
[2017-07-11] MEDS ORDERED: TRAM50TA PO (22:40)
[2017-07-11] MEDS ORDERED: ZOFR4TAB3 SL (22:40)
[2017-07-11] MEDS ORDERED: traMADol HCL 50 MG TAB PO ONE (22:45)
[2017-07-11 22:58] VITALS: BP 113/74
== END 2017-07-11 23:02 | disposition home or self-care (01) ==
LOC: PHED 20:37
DX: K52.9 Noninfective gastroenteritis and colitis, unspecified (principal); F17.200 Nicotine dependence, unspecified, uncomplicated; E10.65 Type 1 diabetes mellitus with hyperglycemia; Z79.4 Long term (current) use of insulin
CPT/HCPCS: 74177; 80053; 83690; 85025; 96361; 96374; 96375; 99285; J1815; J2270; J2405; J7030; Q9967

== ENCOUNTER 2017-09-27 02:30 | Emergency (ER) | payer SELFPAY ==
[~2017-09-27] VITALS: Ht 180.3 cm; Wt 76.7 kg
[~2017-09-27 02:30] MED LIST changes: -CEPH-460 PO; -HYDR-3533 PO; +TRAM50TA PO; +ZOFR4TAB3 SL; -ZOLO25TA PO; +ZOLO50TA PO
[2017-09-27 02:47] VITALS: BP 128/79; PULSE 69; RESP 18; TEMP 98.4; O2SAT 98
[2017-09-27 04:06] VITALS: BP 121/64; PULSE 64; RESP 16; TEMP 98.4; O2SAT 99
[2017-09-27] MEDS ORDERED: DIPH25CA PO (04:36)
[2017-09-27] MEDS ORDERED: ZANT150T2 PO (04:37)
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
[2017-09-27] MEDS ORDERED: EPINEPHrine HCL (1:1000) 1 MG/ML VIAL IM ONE (04:45)
[2017-09-27 05:10] VITALS: BP 131/62; PULSE 69; RESP 18; O2SAT 99
[2017-09-27 05:36] VITALS: BP 132/64
== END 2017-09-27 05:40 | disposition home or self-care (01) ==
LOC: PHED 02:30
DX: T78.40XA Allergy, unspecified, initial encounter (principal); R21 Rash and other nonspecific skin eruption; E10.9 Type 1 diabetes mellitus without complications; F17.210 Nicotine dependence, cigarettes, uncomplicated; Z79.4 Long term (current) use of insulin
CPT/HCPCS: 96372; 99284; J0171

== ENCOUNTER 2017-10-18 19:12 | Emergency (ER) | payer SELFPAY ==
[~2017-10-18] VITALS: Ht 180.3 cm; Wt 63.0 kg
[~2017-10-18 19:12] MED LIST changes: +DIPH25CA PO; -TRAM50TA PO; +ZANT150T2 PO; -ZOFR4TAB3 SL; -ZOLO50TA PO
[2017-10-18 19:16] VITALS: BP 115/56; PULSE 89; TEMP 97.2; O2SAT 99
[2017-10-18] MEDS ORDERED: SODIUM CHLOR 0.9% 1000 ML INJ 1,000 ML IV ONE ×3 (19:26→21:00)
[2017-10-18] MEDS ORDERED: SODIUM CHLORIDE 0.9% FLUSH 10 ML FLUSH IVF PRN (19:30)
--- NOTE | 2017-10-18 19:35 | PD ---
HPI Chief Complaint: Diabetic Time Seen by Provider: 19:22 Travel History International Travel<30 days: No Contact w/Intl Traveler<30days: No Traveled to known affect area: No History of Present Illness HPI The patient is a 21-year-old male who presents emergency department for nausea, vomiting, lethargy. The patient has a history of insulin-dependent diabetes and normally takes Novolin N 70/30, 40 units twice a day. The patient states he ran out of insulin 2 days ago was unable to afford his insulin. The patient states he does not have a primary physician, he buys his insulin at [facility]. The patient has not checked his blood sugar in 2 days. He does have a history of similar symptoms in the past secondary to DKA. Patient does have a history tobacco use, last cigarette was 30 minutes prior to arrival. The patient states he does not currently have a primary physician and has not followed up at any of the local clinics. He denies any chest pain, shortness of breath, or abdominal pain. He does note nausea, vomiting, polyuria, and polydipsia. Symptoms are moderate, similar to previous episodes of DKA, and there are no current alleviating factors. PFSH Past Medical History Autoimmune Disease: Yes (TYPE 1 DM) Cancer: No Cardiovascular Problems: No Diabetes: Yes (TYPE I) Diminished Hearing: No Endocrine: Yes Genitourinary: No Immune Disorder: No Musculoskeletal: Yes (FX RIGHT HAND x 2, left ankle sprain) Neurologic: No Psychiatric: No Reproductive: No Respiratory: No Immunizations Current: Yes Past Surgical History Tonsillectomy: Yes Social History Alcohol Use: No Tobacco Use: Yes (1 PPD) Substance Use: No Allergies-Medications (Allergen,Severity, Reaction): Coded Allergies: No Known Allergies (Verified Adverse Reaction, Unknown, 10/18/17) Reported Meds & Prescriptions Reported Meds & Active Scripts Active Novolin 70-30 Inj (Insulin Human Isoph/Insulin Regular) 1,000 Unit/10 Ml Vial 40 Units SQ BID Reported Novolin 70-30 Inj (Insulin Human Isoph/Insulin Regular) 1,000 Unit/10 Ml Vial 40 Units SQ BID Review of Systems Except as stated in HPI: all other systems reviewed are Neg General / Constitutional: No: Fever Eyes: No: Blurred Vision HENT: Positive: Lightheadedness Cardiovascular: No: Chest Pain or Discomfort Respiratory: No: Shortness of Breath Gastrointestinal: Positive: Nausea, Vomiting, No: Diarrhea, Abdominal Pain Genitourinary: No: Dysuria, Decreased Urinary Output Musculoskeletal: Positive: Weakness Neurologic: Positive: Weakness Endocrine: Positive: Polyuria, Polydipsia Physical Exam Narrative GENERAL: Awake, alert, pleasant 21-year-old male who appears his stated age and is in no acute respiratory distress. SKIN: Focused skin assessment warm/dry. HEAD: Atraumatic. Normocephalic. EYES: Pupils equal and round. No scleral icterus. No injection or drainage. ENT: No nasal bleeding or discharge. Dry mucous membranes. NECK: Trachea midline. No JVD. CARDIOVASCULAR: Regular rate and rhythm. No murmur appreciated. Heart rate in the 80s. RESPIRATORY: No accessory muscle use. Clear to auscultation. Breath sounds equal bilaterally. GASTROINTESTINAL: Abdomen soft, non-tender, nondistended. No rebound tenderness. MUSCULOSKELETAL: No obvious deformities. No clubbing. No cyanosis. No edema. NEUROLOGICAL: Awake and alert. No obvious cranial nerve deficits. Motor grossly within normal limits. Normal speech. Nonfocal. PSYCHIATRIC: Appropriate mood and affect; insight and judgment normal. Data Data Last Documented VS Orders Orders Complete Blood Count With Diff (10/18/17 19:26) Comprehensive Metabolic Panel (10/18/17 19:26) Magnesium (Mg) (10/18/17 19:26) Beta Hydroxybutyrate (Acetone) (10/18/17 19:26) Urinalysis - C+S If Indicated (10/18/17 19:26) Blood Gas Venous (Vbg) (10/18/17 19:26) Blood Glucose (10/18/17 19:26) Blood Glucose (10/18/17 20:26) Ecg Monitoring (10/18/17 19:26) Iv Access Insert/Monitor (10/18/17 19:26) Oximetry (10/18/17 19:26) NPO (10/18/17 19:26) Sodium Chlor 0.9% 1000 Ml Inj (Ns 1000 M (10/18/17 19:26) Sodium Chlor 0.9% 1000 Ml Inj (Ns 1000 M (10/18/17 19:56) Sodium Chloride 0.9% Flush (Ns Flush) (10/18/17 19:30) Sodium Chlor 0.9% 1000 Ml Inj (Ns 1000 M (10/18/17 21:00) Insulin Human Regular Inj (Novolin R Inj (10/18/17 21:00) Insulin Aspart Inj (Novolog Inj) (10/18/17 21:00) Insulin Human Nph/R 70/30 Inj (Novolin 7 (10/18/17 22:30) Ed Discharge Order (10/18/17 22:31) Labs Laboratory Tests Test 10/18/17 19:53 10/18/17 20:25 10/18/17 20:30 Blood Gas Puncture Site PIV Blood Gas Patient Temperature 98.6 Venous Blood pH 7.30 Venous Blood Partial Pressure CO2 43 mmHg Venous Blood Partial Pressure O2 39 mmHg Venous Blood HCO3 20 mmol/L Venous Blood Oxygen Saturation 59 % Venous Blood Oxygen Content 13.5 Vol % Venous Blood Base Excess -5.1 mmol/L Oxygen Delivery Device RA Blood Gas Inspired Oxygen 21 % White Blood Count 5.8 TH/MM3 Red Blood Count 5.66 MIL/MM3 Hemoglobin 15.9 GM/DL Hematocrit 47.9 % Mean Corpuscular Volume 84.7 FL Mean Corpuscular Hemoglobin 28.1 PG Mean Corpuscular Hemoglobin Concent 33.2 % Red Cell Distribution Width 12.2 % Platelet Count 163 TH/MM3 Mean Platelet Volume 9.6 FL Neutrophils (%) (Auto) 56.3 % Lymphocytes (%) (Auto) 26.7 % Monocytes (%) (Auto) 15.8 % Eosinophils (%) (Auto) 0.7 % Basophils (%) (Auto) 0.5 % Neutrophils # (Auto) 3.3 TH/MM3 Lymphocytes # (Auto) 1.5 TH/MM3 Monocytes # (Auto) 0.9 TH/MM3 Eosinophils # (Auto) 0.0 TH/MM3 Basophils # (Auto) 0.0 TH/MM3 CBC Comment DIFF FINAL Differential Comment Blood Urea Nitrogen 21 MG/DL Creatinine 0.88 MG/DL Random Glucose 473 MG/DL Total Protein 8.0 GM/DL Albumin 4.3 GM/DL Calcium Level 9.3 MG/DL Magnesium Level 2.2 MG/DL Alkaline Phosphatase 88 U/L Aspartate Amino Transf (AST/SGOT) 19 U/L Alanine Aminotransferase (ALT/SGPT) 24 U/L Total Bilirubin 0.7 MG/DL Sodium Level 130 MEQ/L Potassium Level 4.2 MEQ/L Chloride Level 93 MEQ/L Carbon Dioxide Level 20.1 MEQ/L Anion Gap 17 MEQ/L Estimat Glomerular Filtration Rate 107 ML/MIN B-Hydroxybutyrate 6.44 MMOL/L Urine Color YELLOW Urine Turbidity CLEAR Urine pH 5.5 Urine Specific [place] 1.031 Urine Protein NEG mg/dL Urine Glucose (UA) 250 mg/dL Urine Ketones 80 OR GREATER mg/dL Urine Occult Blood NEG Urine Nitrite NEG Urine Bilirubin NEG Urine Leukocyte Esterase NEG Urine RBC 0-2 /hpf Urine WBC 0-2 /hpf Urine Squamous Epithelial Cells 0-5 /hpf Urine Bacteria NONE /hpf Microscopic Urinalysis Comment CULT NOT INDICATED MDM Medical Decision Making Medical Screen Exam Complete: Yes Emergency Medical Condition: Yes Medical Record Reviewed: Yes Interpretation(s) Laboratory Tests Test 10/18/17 19:53 10/18/17 20:25 10/18/17 20:30 Blood Gas Puncture Site PIV Blood Gas Patient Temperature 98.6 Venous Blood pH 7.30 Venous Blood Partial Pressure CO2 43 mmHg Venous Blood Partial Pressure O2 39 mmHg Venous Blood HCO3 20 mmol/L Venous Blood Oxygen Saturation 59 % Venous Blood Oxygen Content 13.5 Vol % Venous Blood Base Excess -5.1 mmol/L Oxygen Delivery Device RA Blood Gas Inspired Oxygen 21 % White Blood Count 5.8 TH/MM3 Red Blood Count 5.66 MIL/MM3 Hemoglobin 15.9 GM/DL Hematocrit 47.9 % Mean Corpuscular Volume 84.7 FL Mean Corpuscular Hemoglobin 28.1 PG Mean Corpuscular Hemoglobin Concent 33.2 % Red Cell Distribution Width 12.2 % Platelet Count 163 TH/MM3 Mean Platelet Volume 9.6 FL Neutrophils (%) (Auto) 56.3 % Lymphocytes (%) (Auto) 26.7 % Monocytes (%) (Auto) 15.8 % Eosinophils (%) (Auto) 0.7 % Basophils (%) (Auto) 0.5 % Neutrophils # (Auto) 3.3 TH/MM3 Lymphocytes # (Auto) 1.5 TH/MM3 Monocytes # (Auto) 0.9 TH/MM3 Eosinophils # (Auto) 0.0 TH/MM3 Basophils # (Auto) 0.0 TH/MM3 CBC Comment DIFF FINAL Differential Comment Blood Urea Nitrogen 21 MG/DL Creatinine 0.88 MG/DL Random Glucose 473 MG/DL Total Protein 8.0 GM/DL Albumin 4.3 GM/DL Calcium Level 9.3 MG/DL Magnesium Level 2.2 MG/DL Alkaline Phosphatase 88 U/L Aspartate Amino Transf (AST/SGOT) 19 U/L Alanine Aminotransferase (ALT/SGPT) 24 U/L Total Bilirubin 0.7 MG/DL Sodium Level 130 MEQ/L Potassium Level 4.2 MEQ/L Chloride Level 93 MEQ/L Carbon Dioxide Level 20.1 MEQ/L Anion Gap 17 MEQ/L Estimat Glomerular Filtration Rate 107 ML/MIN B-Hydroxybutyrate 6.44 MMOL/L Urine Color YELLOW Urine Turbidity CLEAR Urine pH 5.5 Urine Specific [place] 1.031 Urine Protein NEG mg/dL Urine Glucose (UA) 250 mg/dL Urine Ketones 80 OR GREATER mg/dL Urine Occult Blood NEG Urine Nitrite NEG Urine Bilirubin NEG Urine Leukocyte Esterase NEG Urine RBC 0-2 /hpf Urine WBC 0-2 /hpf Urine Squamous Epithelial Cells 0-5 /hpf Urine Bacteria NONE /hpf Microscopic Urinalysis Comment CULT NOT INDICATED Differential Diagnosis Differential diagnosis includes DKA, hyperglycemia, dehydration, noncompliance, ketoacidosis, nausea/vomiting, electrolyte abnormality. Narrative Course IV was established, labs are drawn and sent, and the patient was placed on cardiac telemetry monitoring and continuous pulse oximetry monitoring. Accu- Chek was obtained, was 398. VBG was obtained. The patient was administered 2 L of IV fluids. The patient's VBG reveals a pH is 7.298 with a bicarbonate of 20.3, I doubt DKA. Patient's anion gap is 17, ketones were 80 on UA, patient most likely has dehydration with his hyperglycemia. The patient was administered a third liter of IV fluids as well as 6 units of insulin IV and then 8 units of insulin aspart subcutaneously. The patient will be discharged home on his insulin 70/30 40 units twice a day, his father will help him obtain his prescription per the patient's report. He will be referred to the [facility] clinic as he does not currently have a primary physician. The patient's original blood sugar on BMP was 473, repeat blood sugar was down to 348. The patient symptoms were improving. He received a third liter of IV fluids and was administered novolin units, he normally takes 40 units. The 30 units was administered as read already given him insulin. The patient's blood sugar was reevaluated at 2345. He will be discharged home with a prescription for novolin 70/30 and is advised to follow-up at the clinic. Diagnosis Primary Impression: Hyperglycemia Additional Impressions: Dehydration Ketoacidosis Patient Instructions: General Instructions Additional Instructions: Check your blood sugars regularly. Insulin 70/30 as directed. Follow-up at the clinic. Return if symptoms worsen or progress. Med/Other Pt SpecificInfo: Prescription(s) given Scripts Insulin Human Isophane-Regular 70-30 Inj (Novolin 70-30 Inj) 1,000 Unit/10 Ml Vial 40 UNITS SQ BID for Blood Sugar Management, #1 ML 3 Refills Prov: Laith Valdez MD 10/18/17 Disposition: DISCHARGE HOME Condition: Stable Laith Valdez MD Oct 18, 2017 19:35
[2017-10-18 20:08] VITALS: O2SAT 99
[2017-10-18 20:10] VITALS: BP 120/66; PULSE 61; RESP 18; TEMP 98.2; O2SAT 99
[2017-10-18] MEDS ORDERED: NOVO7030P2 SQ ×2 (20:15→20:55)
[2017-10-18 20:32] LABS: AUTOMATED NEUTROPHIL # 3.3 TH/MM3 (1.8-7.7); BASOPHIL % 0.5 % (0.0-2.0); EOSINOPHIL % 0.7 % (0.0-4.0); HEMATOCRIT 47.9 % (39.0-51.0); HEMOGLOBIN 15.9 GM/DL (13.0-17.0); LYMPH % 26.7 % (9.0-44.0); LYMPHOCYTE # 1.5 TH/MM3 (1.0-4.8); MEAN CELL VOLUME 84.7 FL (80.0-100.0); MEAN CORPUSCULAR HEMOGLOBIN 28.1 PG (27.0-34.0); MEAN CORPUSCULAR HGB CONC 33.2 % (32.0-36.0); MEAN PLATELET VOLUME 9.6 FL (7.0-11.0); MONO % 15.8 % (0.0-8.0); MONOCYTE # 0.9 TH/MM3 (0-0.9); NEUT % 56.3 % (16.0-70.0); PLATELET COUNT 163 TH/MM3 (150-450); RED BLOOD COUNT 5.66 MIL/MM3 (4.50-5.90); RED CELL DISTRIBUTION WIDTH 12.2 % (11.6-17.2); WHITE BLOOD COUNT 5.8 TH/MM3 (4.0-11.0)
[2017-10-18 20:34] LABS: BILIRUBIN, URINE NEG (NEG); BLOOD, URINE NEG (NEG); GLUCOSE,URINE 250 mg/dL (NEG); KETONE, URINE 80 OR GREATER mg/dL (NEG); NITRITE,URINE NEG (NEG); PH, URINE 5.5 (5.0-8.5); URINE LEUKOCYTE ESTERASE NEG (NEG)
[2017-10-18 20:35] LABS: URINE COLOR YELLOW (YELLW/STRAW)
[2017-10-18 20:37] LABS: RBC, URINE 0-2 /hpf (0-3); WBC, URINE 0-2 /hpf (0-5)
[2017-10-18 20:38] LABS: SQUAMOUS EPITHELIAL CELL URINE 0-5 /hpf (0-5)
[2017-10-18 20:43] LABS: CHLORIDE 93 MEQ/L (98-107); SODIUM (NA) 130 MEQ/L (136-145)
[2017-10-18 20:45] LABS: CALCIUM 9.3 MG/DL (8.5-10.1)
[2017-10-18 20:46] LABS: ALBUMIN 4.3 GM/DL (3.4-5.0); BICARBONATE 20.1 MEQ/L (21.0-32.0)
[2017-10-18 20:59] LABS: ALKALINE PHOSPHATASE 88 U/L (45-117); ALT (GPT) 24 U/L (12-78); AST (GOT) 19 U/L (15-37); BLOOD UREA NITROGEN 21 MG/DL (7-18); CREATININE 0.88 MG/DL (0.60-1.30); GLOMERULAR FILTRATION RATE 107 ML/MIN (>89); MAGNESIUM 2.2 MG/DL (1.5-2.5); TOTAL BILIRUBIN ADULT 0.7 MG/DL (0.2-1.0)
[2017-10-18] MEDS ORDERED: INSULIN ASPART 1,000 UNITS/10 ML VIAL SQ ONE (21:00)
[2017-10-18] MEDS ORDERED: INSULIN HUMAN REGULAR 1,000 UNITS/10 ML VIAL IV PUSH ONE (21:00)
[2017-10-18 21:02] LABS: GLUCOSE,RANDOM 473 MG/DL (74-106)
[2017-10-18 21:34] VITALS: BP 126/67; PULSE 70; RESP 20
[2017-10-18] MEDS ORDERED: INSULIN HUMAN NPH/R 70/30 1,000 UNITS/10 ML VIAL SQ ONE (22:30)
[2017-10-18 22:40] VITALS: BP 124/64; PULSE 66; RESP 18; TEMP 97.6; O2SAT 99
== END 2017-10-19 00:19 | disposition home or self-care (01) ==
LOC: PHED 19:12
DX: E10.65 Type 1 diabetes mellitus with hyperglycemia (principal); E10.10 Type 1 diabetes mellitus with ketoacidosis without coma; E86.0 Dehydration; R11.2 Nausea with vomiting, unspecified; F17.200 Nicotine dependence, unspecified, uncomplicated; Z79.4 Long term (current) use of insulin
CPT/HCPCS: 80053; 81001; 82010; 82805; 83735; 85025; 96361; 96372; 96374; 99284; J1815; J7030

== ENCOUNTER 2018-03-14 15:52 | Inpatient (IN) | payer SELFPAY ==
[2018-03-14] VITALS (11 sets, daily range): BP systolic 95–117; BP diastolic 55–66; PULSE 89–100; RESP 15–24; TEMP 97.9–98.8; O2SAT 97–100
[~2018-03-14] VITALS: Ht 180.3 cm; Wt 62.7 kg
[~2018-03-14 15:52] MED LIST changes: -DIPH25CA PO; -ZANT150T2 PO
--- NOTE | 2018-03-14 16:13 | PD ---
HPI Chief Complaint: General Weakness Time Seen by Provider: 16:12 Travel History International Travel<30 days: No Contact w/Intl Traveler<30days: No Traveled to known affect area: No History of Present Illness HPI 22-year-old male came to the emergency room with history of feeling weak. Patient says he has been nauseous and vomiting since 2 in the morning. He called EMS who brought him into the emergency room. Patient has history of diabetes. His bedside blood glucose was reading high on the monitor. Patient appears to be lethargic and in distress. He told me that he has not vomited in a while. He has been going to the bathroom to urinate frequently. History is limited given his distress. [facility] Past Medical History Narrative Medical List of his past medical, surgical, social and family history is reviewed from the nursing note. Autoimmune Disease: Yes (TYPE 1 DM) Cancer: No Cardiovascular Problems: No Diabetes: Yes Patient Takes Glucophage: No Diminished Hearing: No Endocrine: Yes Genitourinary: No Immune Disorder: No Musculoskeletal: Yes (FX RIGHT HAND x 2, left ankle sprain) Neurologic: No Psychiatric: No Reproductive: No Respiratory: No Immunizations Current: Yes Influenza Vaccination: No Past Surgical History Tonsillectomy: Yes Other Surgery: No Social History Alcohol Use: No Tobacco Use: Yes (1 PPD) Substance Use: No Allergies-Medications (Allergen,Severity, Reaction): Coded Allergies: No Known Allergies (Verified Adverse Reaction, Unknown, 03/14/18) Comments No known drug allergies. Reported Meds & Prescriptions Reported Meds & Active Scripts Active Novolin 70-30 Inj (Insulin Human Isoph/Insulin Regular) 1,000 Unit/10 Ml Vial 40 Units SQ BID Reported Novolin 70-30 Inj (Insulin Human Isoph/Insulin Regular) 1,000 Unit/10 Ml Vial 40 Units SQ BID Narrative Medication List of his home medications reviewed from the nursing note. Review of Systems ROS Limitations: Altered Mental Status Except as stated in HPI: all other systems reviewed are Neg Gastrointestinal: Positive: Nausea, Vomiting Endocrine: Positive: Polyuria, Polydipsia Physical Exam Narrative GENERAL: Lethargic but answers questions appropriately, moderate distress SKIN: Focused skin assessment warm/dry. HEAD: Atraumatic. Normocephalic. EYES: Pupils equal and round. No scleral icterus. No injection or drainage. ENT: No nasal bleeding or discharge. Dry mucous membrane. NECK: Trachea midline. No JVD. CARDIOVASCULAR: Regular rate and rhythm. No murmur appreciated. RESPIRATORY: No accessory muscle use. Clear to auscultation. Breath sounds equal bilaterally. GASTROINTESTINAL: Abdomen soft, non-tender, nondistended. Hepatic and splenic margins not palpable. MUSCULOSKELETAL: No obvious deformities. No clubbing. No cyanosis. No edema. NEUROLOGICAL: Awake and alert. No obvious cranial nerve deficits. Motor grossly within normal limits. Normal speech. PSYCHIATRIC: Appropriate mood and affect; insight and judgment normal. Data Data Last Documented VS Vital Signs Date Time Temp Pulse Resp B/P (MAP) Pulse Ox O2 Delivery O2 Flow Rate FiO2 03/14/18 16:06 99 Room Air 03/14/18 16:01 97.9 95 18 106/59 (75) Orders Orders Complete Blood Count With Diff (03/14/18 16:19) Comprehensive Metabolic Panel (03/14/18 16:19) Beta Hydroxybutyrate (Acetone) (03/14/18 16:19) Urinalysis - C+S If Indicated (03/14/18 16:19) Arterial Blood Gas (Abg) (03/14/18 16:19) Ecg Monitoring (03/14/18 16:19) Iv Access Insert/Monitor (03/14/18 16:19) Oximetry (03/14/18 16:19) NPO (03/14/18 16:19) Sodium Chlor 0.9% 1000 Ml Inj (Ns 1000 M (03/14/18 16:19) Sodium Chlor 0.9% 1000 Ml Inj (Ns 1000 M (03/14/18 16:49) Sodium Chloride 0.9% Flush (Ns Flush) (03/14/18 16:30) Insulin Human Regular Inj (Novolin R Inj (03/14/18 16:30) Precision Machine Operator / Telemetry [id number] (03/14/18 16:43) ^ Insert Iv (03/14/18 16:43) Diet Npo (03/14/18 Dinner) Sodium Chlor 0.9% 1000 Ml Inj (Ns 1000 M (03/14/18 16:43) Dext 5%-Nacl 0.9% 1000 Ml Inj (D5w-Ns 10 (03/14/18 16:43) Insulin Regular (Iv Infusion) (Novolin R (03/14/18 16:45) Potassium Chlor 40 Meq Premix (Kcl 40 Me (03/14/18 16:45) Potassium Chlor 40 Meq Premix (Kcl 40 Me (03/14/18 16:45) Potassium Chlor 20 Meq Premix (Kcl 20 Me (03/14/18 16:45) Potassium Chlor 20 Meq Premix (Kcl 20 Me (03/14/18 16:45) Potassium Chlor 20 Meq Premix (Kcl 20 Me (03/14/18 16:45) Potassium Chlor 20 Meq Premix (Kcl 20 Me (03/14/18 16:45) Potassium Chlor 20 Meq Premix (Kcl 20 Me (03/14/18 16:45) Potassium Chlor 20 Meq Premix (Kcl 20 Me (03/14/18 16:45) Sodium Bicarbonate 8.4% Inj (Sodium Bica (03/14/18 16:45) Sodium Bicarbonate 8.4% Inj (Sodium Bica (03/14/18 16:45) Sodium Phosphate Inj (Sodium Phosphate I (03/14/18 16:45) Hemoglobin (Hgb) A1c (03/14/18 16:43) Basic Metabolic Panel (Bmp) (03/14/18 21:43) Basic Metabolic Panel (Bmp) (03/15/18 03:43) Basic Metabolic Panel (Bmp) (03/15/18 09:43) Basic Metabolic Panel (Bmp) (03/15/18 15:43) Magnesium (Mg) (03/14/18 21:43) Magnesium (Mg) (03/15/18 03:43) Magnesium (Mg) (03/15/18 09:43) Magnesium (Mg) (03/15/18 15:43) Phosphorus (Po4) (03/14/18 21:43) Phosphorus (Po4) (03/15/18 03:43) Phosphorus (Po4) (03/15/18 09:43) Phosphorus (Po4) (03/15/18 15:43) Beta Hydroxybutyrate (Acetone) (03/15/18 03:43) Beta Hydroxybutyrate (Acetone) (03/15/18 15:43) Metoclopramide Inj (Reglan Inj) (03/14/18 17:00) Admit Order (Ed Use Only) (03/14/18 17:01) Labs Laboratory Tests Test 03/14/18 16:20 03/14/18 16:30 White Blood Count 10.8 TH/MM3 Red Blood Count 4.44 MIL/MM3 Hemoglobin 13.5 GM/DL Hematocrit 40.7 % Mean Corpuscular Volume 91.7 FL Mean Corpuscular Hemoglobin 30.4 PG Mean Corpuscular Hemoglobin Concent 33.2 % Red Cell Distribution Width 13.0 % Platelet Count 248 TH/MM3 Mean Platelet Volume 8.6 FL Neutrophils (%) (Auto) 77.8 % Lymphocytes (%) (Auto) 17.2 % Monocytes (%) (Auto) 3.8 % Eosinophils (%) (Auto) 0.2 % Basophils (%) (Auto) 1.0 % Neutrophils # (Auto) 8.4 TH/MM3 Lymphocytes # (Auto) 1.9 TH/MM3 Monocytes # (Auto) 0.4 TH/MM3 Eosinophils # (Auto) 0.0 TH/MM3 Basophils # (Auto) 0.1 TH/MM3 CBC Comment DIFF FINAL Differential Comment Urine Color YELLOW Urine Turbidity CLEAR Urine pH 5.0 Urine Specific [place] 1.020 Urine Protein NEG mg/dL Urine Glucose (UA) 1000 OR GREATER mg/dL Urine Ketones 80 OR GREATER mg/dL Urine Occult Blood NEG Urine Nitrite NEG Urine Bilirubin NEG Urine Urobilinogen 0.2 MG/DL Urine Leukocyte Esterase NEG Microscopic Urinalysis Comment CULT NOT INDICATED Blood Urea Nitrogen 31 MG/DL Creatinine 1.10 MG/DL Random Glucose 695 MG/DL Total Protein 7.2 GM/DL Albumin 3.7 GM/DL Calcium Level 8.6 MG/DL Alkaline Phosphatase 103 U/L Aspartate Amino Transf (AST/SGOT) 21 U/L Alanine Aminotransferase (ALT/SGPT) 67 U/L Total Bilirubin 0.5 MG/DL Sodium Level 131 MEQ/L Potassium Level 5.2 MEQ/L Chloride Level 97 MEQ/L Carbon Dioxide Level 9.4 MEQ/L Anion Gap 25 MEQ/L Estimat Glomerular Filtration Rate 82 ML/MIN Blood Gas Puncture Site RT RADIAL Blood Gas Patient Temperature 98.6 Blood Gas HCO3 6 mmol/L Blood Gas Base Excess -21.5 mmol/L Blood Gas Oxygen Saturation 94 % Arterial Blood pH 7.12 Arterial Blood Partial Pressure CO2 20 mmHG Arterial Blood Partial Pressure O2 129 mmHG Arterial Blood Oxygen Content 17.4 Vol % Arterial Blood Carboxyhemoglobin 1.4 % Arterial Blood Methemoglobin 2.0 % Blood Gas Hemoglobin 12.9 G/DL Oxygen Delivery Device ROOM AIR Blood Gas Inspired Oxygen 21 % MDM Medical Decision Making Medical Screen Exam Complete: Yes Emergency Medical Condition: Yes Medical Record Reviewed: Yes Differential Diagnosis DKA, hyperglycemia, dehydration Narrative Course 5:08 PM patient was given 2 L of IV fluid bolus and IV insulin 7 units. ABG was suggestive of metabolic acidosis correlating with DKA under the circumstances. Blood test results came back with hyperglycemia and bicarb of 9. I started him on DKA protocol. The nurse is repeating the blood sugar at this point. Patient is admitted to the ICU for DKA. Critical Care Narrative Aggregate critical care time was 45 minutes. Time to perform other separately billable procedures was not included in the critical care time. My time did not include minutes spent treating any other patients simultaneously or on activities that did not directly contribute to the patient's treatment. The services I provided to this patient were to treat and/or prevent clinically significant deterioration that could result in: Severe DKA, metabolic acidosis, DKA protocol I provided critical care services requiring my management, as noted below: Chart data review, documentation time, medication orders and management, vital sign assessments/reviewing monitor data, ordering and reviewing lab tests, ordering and interpreting/reviewing x-rays and diagnostic studies, care of the patient and discussion of the patient with the admitting physicians. Procedures EKG Prior to Arrival: No Diagnosis Primary Impression: DKA (diabetic ketoacidosis) Qualified Codes: E10.10 - Type 1 diabetes mellitus with ketoacidosis without coma Admitting Information Admitting Physician Requests: it Isabel Tai MD Mar 14, 2018 16:13
[2018-03-14] MEDS ORDERED: SODIUM CHLOR 0.9% 1000 ML INJ 1,000 ML IV ONE ×2 (16:19→16:49)
[2018-03-14] MEDS ORDERED: SODIUM CHLORIDE 0.9% FLUSH 10 ML FLUSH IVF PRN (16:30)
[2018-03-14] MEDS ORDERED: INSULIN HUMAN REGULAR 1,000 UNITS/10 ML VIAL IV PUSH ONE (16:30)
[2018-03-14 16:38] LABS: AUTOMATED NEUTROPHIL # 8.4 TH/MM3 (1.8-7.7); BASOPHIL # 0.1 TH/MM3 (0-0.2); EOSINOPHIL % 0.2 % (0.0-4.0); HEMATOCRIT 40.7 % (39.0-51.0); HEMOGLOBIN 13.5 GM/DL (13.0-17.0); LYMPH % 17.2 % (9.0-44.0); LYMPHOCYTE # 1.9 TH/MM3 (1.0-4.8); MEAN CELL VOLUME 91.7 FL (80.0-100.0); MEAN CORPUSCULAR HEMOGLOBIN 30.4 PG (27.0-34.0); MEAN CORPUSCULAR HGB CONC 33.2 % (32.0-36.0); MEAN PLATELET VOLUME 8.6 FL (7.0-11.0); MONO % 3.8 % (0.0-8.0); MONOCYTE # 0.4 TH/MM3 (0-0.9); NEUT % 77.8 % (16.0-70.0); PLATELET COUNT 248 TH/MM3 (150-450); RED BLOOD COUNT 4.44 MIL/MM3 (4.50-5.90); WHITE BLOOD COUNT 10.8 TH/MM3 (4.0-11.0)
[2018-03-14 16:41] LABS: BILIRUBIN, URINE NEG (NEG); BLOOD, URINE NEG (NEG); GLUCOSE,URINE 1000 OR GREATER mg/dL (NEG); KETONE, URINE 80 OR GREATER mg/dL (NEG); NITRITE,URINE NEG (NEG); URINE COLOR YELLOW (YELLW/STRAW); URINE LEUKOCYTE ESTERASE NEG (NEG)
[2018-03-14] MEDS ORDERED: DEXT 5%-NACL 0.9% 1000 ML INJ 1,000 ML IV SCH (16:43)
[2018-03-14] MEDS ORDERED: SODIUM PHOSPHATE INJ 15 MMOL in SODIUM CHLORIDE 0.9% INJ 100 ML IV PRN ×2 (16:45→17:45)
[2018-03-14] MEDS ORDERED: SODIUM BICARBONATE 8.4% SOLN 50 MEQ/50 ML VIAL IV PUSH PRN ×4 (16:45→17:45)
[2018-03-14] MEDS ORDERED: POTASSIUM CHLOR 40 MEQ PREMIX 100 ML IV PRN ×4 (16:45→17:45)
[2018-03-14] MEDS ORDERED: INSULIN REGULAR (IV INFUSION) 100 UNITS in SODIUM CHLORIDE 0.9% INJ 99 ML IV PRN ×2 (16:45→17:45)
[2018-03-14] MEDS ORDERED: POTASSIUM CHLOR 20 MEQ PREMIX 100 ML IV PRN ×12 (16:45→17:45)
[2018-03-14 16:52] LABS: CHLORIDE 97 MEQ/L (98-107); SODIUM (NA) 131 MEQ/L (136-145)
[2018-03-14 16:56] LABS: ALBUMIN 3.7 GM/DL (3.4-5.0); BICARBONATE 9.4 MEQ/L (21.0-32.0); CALCIUM 8.6 MG/DL (8.5-10.1)
[2018-03-14 16:57] LABS: BLOOD UREA NITROGEN 31 MG/DL (7-18)
[2018-03-14 16:59] LABS: ALT (GPT) 67 U/L (12-78); AST (GOT) 21 U/L (15-37)
[2018-03-14 17:00] LABS: GLOMERULAR FILTRATION RATE 82 ML/MIN (>89)
[2018-03-14] MEDS ORDERED: METOCLOPRAMIDE HCL 10 MG/2 ML VIAL IV PUSH ONE (17:00)
[2018-03-14 17:01] LABS: TOTAL BILIRUBIN ADULT 0.5 MG/DL (0.2-1.0); TOTAL PROTEIN 7.2 GM/DL (6.4-8.2)
[2018-03-14 17:04] LABS: ALKALINE PHOSPHATASE 103 U/L (45-117)
[2018-03-14 17:06] LABS: GLUCOSE,RANDOM 695 MG/DL (74-106)
[2018-03-14] MEDS ORDERED: CALCIUM CARBONATE 500 MG CHEWABLE TAB CHEW PRN (17:45)
[2018-03-14] MEDS ORDERED: ACETAMINOPHEN 325 MG TAB PO PRN (17:45)
[2018-03-14] MEDS ORDERED: CHLORHEXIDINE GLUCONATE 2 % 1 PACK (2 CLOTHS) TOP PRN (17:45)
[2018-03-14] MEDS ORDERED: DOCUSATE SODIUM 50 MG/SENNA 8.6 MG TAB PO PRN (17:45)
[2018-03-14] MEDS ORDERED: NURSING INFORMATION XX SCH (17:45)
[2018-03-14] MEDS: SODIUM CHLOR 0.9% 1000 ML INJ 1,000 ML IV SCH ×4 (17:46→21:49)
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
[2018-03-14 18:01] LABS: CALCIUM 8.5 MG/DL (8.5-10.1)
[2018-03-14 18:02] LABS: BICARBONATE 7.9 MEQ/L (21.0-32.0)
[2018-03-14] MEDS: DEXT 5%-NACL 0.9% 1000 ML INJ 1,000 ML IV SCH (22:52)
[2018-03-14 23:57] LABS: BICARBONATE 12.9 MEQ/L (21.0-32.0); BLOOD UREA NITROGEN 20 MG/DL (7-18); CALCIUM 8.8 MG/DL (8.5-10.1); CHLORIDE 109 MEQ/L (98-107); CREATININE 0.93 MG/DL (0.60-1.30); GLOMERULAR FILTRATION RATE 100 ML/MIN (>89); GLUCOSE,RANDOM 222 MG/DL (74-106); MAGNESIUM 2.1 MG/DL (1.5-2.5); SODIUM (NA) 139 MEQ/L (136-145)
[2018-03-14 23:58] LABS: PHOSPHORUS 3.3 MG/DL (2.5-4.9)
[2018-03-15] VITALS (18 sets, daily range): BP systolic 93–111; BP diastolic 56–73; PULSE 62–90; RESP 12–27; TEMP 97.6–98.3; O2SAT 97–100
[2018-03-15] MEDS: DEXT 5%-NACL 0.9% 1000 ML INJ 1,000 ML IV SCH (03:57)
[2018-03-15] MEDS ORDERED: CHLORHEXIDINE GLUCONATE 2 % 1 PACK (2 CLOTHS) TOP SCH (04:00)
[2018-03-15 06:00] LABS: BICARBONATE 20.3 MEQ/L (21.0-32.0); CALCIUM 7.9 MG/DL (8.5-10.1); CREATININE 0.75 MG/DL (0.60-1.30); MAGNESIUM 1.9 MG/DL (1.5-2.5); PHOSPHORUS 3.1 MG/DL (2.5-4.9)
[2018-03-15] MEDS ORDERED: GLUCAGON 1 MG/ML VIAL OTHER PRN (06:30)
[2018-03-15] MEDS ORDERED: DC Insulin drip 2 hrs post basal insulin dose ONE (06:30)
[2018-03-15] MEDS ORDERED: DC previous DKA orders (HMC 1917) ONE (06:30)
[2018-03-15] MEDS ORDERED: DEXTROSE 50% IN WATER 50 ML VIAL(D50) IV PUSH PRN (06:30)
[2018-03-15] MEDS ORDERED: INSULIN REGULAR (IV INFUSION) 100 UNITS in SODIUM CHLORIDE 0.9% INJ 99 ML IV PRN (07:00)
[2018-03-15] MEDS: INSULIN ASPART SUPPLEMENTAL SCALE SQ SCH ×2 (08:00→13:15)
[2018-03-15] MEDS ORDERED: INSULIN DETEMIR 100 UNITS/ML VIAL SQ SCH (09:00)
[2018-03-15 11:38] LABS: CALCIUM 7.9 MG/DL (8.5-10.1)
[2018-03-15 11:39] LABS: BICARBONATE 22.1 MEQ/L (21.0-32.0); MAGNESIUM 1.8 MG/DL (1.5-2.5)
[2018-03-15 11:41] LABS: CREATININE 0.7 MG/DL (0.60-1.30)
[2018-03-15 11:42] LABS: PHOSPHORUS 2.6 MG/DL (2.5-4.9)
--- NOTE | 2018-03-15 13:22 | HHI.DCPOC ---
Discharge Care Plan Diagnosis: (1) DM (diabetes mellitus) type 1 with ketoacidosis Goals to Promote Your Health * To prevent worsening of your condition and complications * To maintain your health at the optimal level Directions to Meet Your Goals Take your medications as prescribed Follow your dietary instruction Follow activity as directed Keep your appointments as scheduled Take your immunizations and boosters as scheduled If your symptoms worsen call your PCP, if no PCP go to Urgent Care Center or Emergency Room Smoking is Dangerous to Your Health. Avoid second hand smoke Call the 24-hour hour crisis hotline for domestic abuse at Katie Rubalcava MD Mar 15, 2018 13:22
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
[2018-03-15] MEDS ORDERED: BACITRACIN OINT 0.9 GM PKT TOPICAL SCH (15:00)
[2018-03-16 09:56] LABS: HEMOGLOBIN A1C 15.1 % (4.3-6.0)
== END 2018-03-15 14:53 | disposition home or self-care (01) | DRG 639 ==
LOC: PHED 15:52 → PHEDA 17:02 → PHICU 20:34
PROVIDERS: ADMIT Hospitalist; ATTEND Hospitalist
DX: E10.10 Type 1 diabetes mellitus with ketoacidosis without coma (principal); F17.210 Nicotine dependence, cigarettes, uncomplicated; Z79.4 Long term (current) use of insulin; Z83.3 Family history of diabetes mellitus
CPT/HCPCS: 36600; 80048; 80053; 81001; 82010; 82805; 82948; 83036; 83735; 84100; 85025; 87641; 96374; J1815; J1817; J2765; J7030; J7042

== ENCOUNTER 2018-03-18 19:21 | Emergency (ER) | payer SELFPAY ==
[~2018-03-18] VITALS: Ht 180.3 cm; Wt 66.3 kg
[2018-03-18 19:27] VITALS: BP 123/66; PULSE 104; RESP 18; TEMP 97.9; O2SAT 97
[2018-03-18 19:40] VITALS: BP 149/94; PULSE 54; RESP 16; O2SAT 98
[2018-03-18] MEDS ORDERED: INSULIN HUMAN REGULAR 1,000 UNITS/10 ML VIAL SQ STA (19:44)
[2018-03-18] MEDS ORDERED: SODIUM CHLOR 0.9% 1000 ML INJ 1,000 ML IV ONE (19:45)
[2018-03-18] MEDS ORDERED: KETOROLAC TROMETHAMINE 30 MG/ML (IVP) VIAL IV PUSH ONE (19:45)
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
[2018-03-18 20:04] LABS: AUTOMATED NEUTROPHIL # 4.4 TH/MM3 (1.8-7.7); BASOPHIL # 0.1 TH/MM3 (0-0.2); BASOPHIL % 0.9 % (0.0-2.0); EOSINOPHIL # 0.1 TH/MM3 (0-0.4); EOSINOPHIL % 1.8 % (0.0-4.0); HEMATOCRIT 39.8 % (39.0-51.0); HEMOGLOBIN 12.6 GM/DL (13.0-17.0); LYMPH % 29.5 % (9.0-44.0); LYMPHOCYTE # 2.1 TH/MM3 (1.0-4.8); MEAN CELL VOLUME 90.5 FL (80.0-100.0); MEAN CORPUSCULAR HEMOGLOBIN 28.6 PG (27.0-34.0); MEAN CORPUSCULAR HGB CONC 31.6 % (32.0-36.0); MEAN PLATELET VOLUME 8.2 FL (7.0-11.0); MONO % 7.3 % (0.0-8.0); MONOCYTE # 0.5 TH/MM3 (0-0.9); NEUT % 60.5 % (16.0-70.0); PLATELET COUNT 242 TH/MM3 (150-450); RED CELL DISTRIBUTION WIDTH 12.5 % (11.6-17.2); WHITE BLOOD COUNT 7.2 TH/MM3 (4.0-11.0)
[2018-03-18 20:05] LABS: BILIRUBIN, URINE NEG (NEG); BLOOD, URINE NEG (NEG); GLUCOSE,URINE 1000 OR GREATER mg/dL (NEG); KETONE, URINE NEG (NEG); NITRITE,URINE NEG (NEG); URINE COLOR YELLOW (YELLW/STRAW); URINE LEUKOCYTE ESTERASE NEG (NEG)
[2018-03-18 20:13] LABS: RBC, URINE 0-3 /hpf (0-3); WBC, URINE 0-2 /hpf (0-5)
[2018-03-18 20:20] LABS: ALBUMIN 3.6 GM/DL (3.4-5.0); ALT (GPT) 93 U/L (12-78); AST (GOT) 42 U/L (15-37); BICARBONATE 26.7 MEQ/L (21.0-32.0); BLOOD UREA NITROGEN 17 MG/DL (7-18); CALCIUM 9.3 MG/DL (8.5-10.1); CREATININE 0.97 MG/DL (0.60-1.30); GLOMERULAR FILTRATION RATE 95 ML/MIN (>89); SODIUM (NA) 132 MEQ/L (136-145)
[2018-03-18 20:21] LABS: CHLORIDE 94 MEQ/L (98-107); TOTAL BILIRUBIN ADULT 0.3 MG/DL (0.2-1.0)
[2018-03-18 20:22] LABS: ALKALINE PHOSPHATASE 100 U/L (45-117)
[2018-03-18 20:26] LABS: GLUCOSE,RANDOM 521 MG/DL (74-106)
[2018-03-18] MEDS ORDERED: IOHEXOL 350 MG/ML 10 ML VIAL (for RAD DIAG) IVCONTRAST ONE (21:03)
--- NOTE | 2018-03-18 21:17 | RADRPT ---
EXAM DATE: 03/18/2018 9:07 PM EDT AGE/SEX: 22 years / Male INDICATIONS: Bilateral flank pain. CLINICAL DATA: This is the patient's initial encounter. Patient reports that signs and symptoms have been present for 1 day and indicates a pain score of 6/10. MEDICAL/SURGICAL HISTORY: Diabetes. None. ORAL CONTRAST: No oral contrast ingested. RADIATION DOSE: 7.17 CTDI (mGy) COMPARISON: O, CT ABDOMEN & PELVIS W CONTRAST, 07/11/2017. . TECHNIQUE: Multiple contiguous axial images were obtained through the abdomen and pelvis following b olus infusion of 100 ml Omnipaque 350 (iohexol) nonionic water-soluble contrast as a single exam do se. No oral contrast ingested. Using automated exposure control and adjustment of the mA and/or kV a ccording to patient size, the radiation dose was kept as low as reasonably achievable to obtain optim al diagnostic quality images. FINDINGS: Lung bases are clear. The osseous structures are intact. No pleural or pericardial effusions are iden tified. Liver, spleen, pancreas, adrenal glands, kidneys are unremarkable. Appendix normal. Urinary b ladder is unremarkable. There are no signs of bowel obstruction. Stomach is normal in appearance. No adenopathy or aneurysm. No free fluid or free air. CONCLUSION: 1. Negative CT Abdomen and Pelvis with contrast. Electronically signed by: Tu Sharma MD 03/18/2018 9:16 PM EDT
[2018-03-18] MEDS ORDERED: CYCL5TAB PO (21:29)
[2018-03-18 21:55] VITALS: RESP 16
[2018-03-18 21:56] VITALS: BP 108/67
== END 2018-03-18 22:03 | disposition home or self-care (01) ==
LOC: PHED 19:21
DX: M54.5 Low back pain (principal); E10.9 Type 1 diabetes mellitus without complications; F17.200 Nicotine dependence, unspecified, uncomplicated; Z91.14 Patient's other noncompliance with medication regimen; Z79.4 Long term (current) use of insulin
CPT/HCPCS: 74177; 80053; 81001; 83690; 85025; 96361; 96372; 96374; 99284; J1815; J1885; J7030; Q9967

== ENCOUNTER 2018-04-10 13:08 | Inpatient (IN) ==
[2018-04-12] MEDS ORDERED: Insulin NovoLOG Aspart Correctional Sugar Inj SQ ONE (22:34)
[2018-04-13] MEDS ORDERED: NACL 0.225% IV.SIG SCH ×2
[2018-04-13] MEDS ORDERED: POTASSIUM CHLORIDE IV.SIG SCH ×2
[2018-04-13] MEDS ORDERED: DEXTROSE IV.SIG SCH ×2
[2018-04-13] MEDS ORDERED: Chlorhexidine Gluconate 2% 1 Pack (2 Cloths) TOPICAL PRN
[2018-04-13] MEDS ORDERED: Bisacodyl 10 MG Supp RECTAL PRN
[2018-04-13] MEDS ORDERED: Acetaminophen 325 MG Tablet PO PRN
[2018-04-13] MEDS ORDERED: Dextrose 50% in Water 50 ML Vial IV.PUSH PRN
[2018-04-13] MEDS ORDERED: Naloxone Inj 0.4 MG/ML Vial IV.PUSH SCH
[2018-04-13] MEDS ORDERED: Piperacil/Tazo 3.375 GM Premix 50 ML IV.SIG SCH (02:00)
[2018-04-13] MEDS: Insulin NovoLOG Aspart Correctional Sugar Inj SQ SCH ×4 (02:00→10:00)
[2018-04-13] MEDS ORDERED: Chlorhexidine Gluconate 2% 1 Pack (2 Cloths) TOPICAL SCH (04:00)
[2018-04-13] MEDS ORDERED: Sod Chloride 0.9% Inj 1,000 ML IV.SIG SCH (06:00)
[2018-04-13] MEDS ORDERED: Famotidine PF Inj 20 MG/2 ML Vial IV.PUSH SCH (09:00)
[2018-04-13] MEDS ORDERED: Senna/Docusate Sodium 8.6/50 MG Tablet PO SCH (09:00)
[2018-04-13 12:11] LABS: Potassium 3.7 meq/L (3.5-5.1)
[2018-04-13 12:12] LABS: Beta Hydroxybutyric Acid 0.11 mmol/L (0.00-0.39); Calcium 7.8 mg/dL (8.5-10.1); Carbon Dioxide 24.1 meq/L (21.0-32.0); Magnesium 1.8 mg/dL (1.5-2.5); Phosphorus 2.9 mg/dL (2.5-4.9)
--- NOTE | 2018-04-13 13:01 | P.PN ---
Subjective Interval history: Nursing denies any deterioration since last night. When I asked the patient exactly what had led to him being hospitalized, he cannot clearly tell me how compliant or noncompliant he was with his insulin. He then thinks that he ran out of his supply at some point. He does report tolerating p.o. intake now. Blood sugars are in the mid 100s to low 200s fortunately. Physical Exam Vital signs: Vital Signs 04/13/18 00:00 04/13/18 08:00 Temperature 97.9 F 98.0 F Pulse Rate 74 64 Respiratory Rate 18 16 Blood Pressure 100/63 112/73 Pulse Oximetry 100 100 Intake & Output 04/12/18 04/13/18 04/13/18 18:59 06:59 18:59 Intake Total 240 / 240 Output Total 500 / 500 2600 / 2600 Balance -260 / -260 -2600 / -2600 Intake: Oral 240 / 240 Output: Urine 500 / 500 2600 / 2600 Other: # Voids 2 Narrative: Lying in bed, awake and alert, no acute distress, abdomen soft, nontender, nondistended Results - Labs CBC & Chem 7: 04/12/18 11:25 04/13/18 08:30 Labs: Laboratory Results - last 24 hr 04/10/18 04/10/18 04/10/18 13:36 14:00 14:00 WBC 39.5 H RBC 4.47 L Hgb 13.3 Hct 45.2 MCV 101.1 H MCH 29.7 MCHC 29.4 L RDW 14.5 Plt Count 375 MPV 9.2 CBC Comment AUTO DIFF Total Counted 100 Neutrophils % (Manual) 65 Band Neutrophils % 12 H Lymphocytes % 8 L Monocytes % 10 H Neutrophils # (Manual) 32.4 H Metamyelocytes 3 H Myelocytes 2 H Differential Comment FINAL DIFF MANUAL Toxic Vacuolation PRESENT H Platelet Estimate NORMAL Plt Morphology Comment NORMAL PT INR APTT Puncture Site RT RADIAL Patient Temperature 98.6 HCO3 1 L* Base Excess -30.0 L O2 Saturation 95 ABG pH 6.85 L* ABG pCO2 7 L* ABG pO2 159 H ABG O2 Content 16.1 ABG Carboxyhemoglobin 1.6 ABG Methemoglobin 1.3 Hemoglobin 11.8 L O2 Delivery Device NASAL CANNULA Liter Flow 2 Inspired O2 Sodium 133 L Potassium 7.2 H* Chloride 100 Carbon Dioxide 3.2 L Anion Gap 30 H BUN 26 H Creatinine 2.09 H Estimated GFR 39 L POC Glucose Random Glucose 875 H* Lactic Acid Calcium 7.8 L Prot Corrected Calcium Phosphorus 10.1 H Magnesium 2.8 H Total Bilirubin 0.4 AST 47 H ALT 38 Alkaline Phosphatase 169 H Ammonia Total Creatine Kinase Total Protein 6.5 Albumin 3.5 Lipase 49 L Vitamin B12 Folate Beta-Hydroxybutyric Acd Free T4 Free T3 pg/dL TSH 3rd Generation Urine Color Urine Turbidity Urine pH Ur Specific [place] Urine Protein Urine Glucose (UA) Urine Ketones Urine Occult Blood Urine Nitrite Urine Bilirubin Urine Urobilinogen Ur Leukocyte Esterase Urine RBC Urine WBC Urine Bacteria Micro UA Comment Nasal Screen MRSA (PCR) Salicylates Urine Opiates Screen Acetaminophen Ur Barbiturates Screen Ur Amphetamines Screen U Benzodiazepines Scrn Urine Cocaine Screen U Cannabinoids Screen B-Hydroxybutyrate 12.42 H 04/10/18 04/10/18 04/10/18 14:15 14:15 15:15 WBC RBC Hgb Hct MCV MCH MCHC RDW Plt Count MPV CBC Comment Total Counted Neutrophils % (Manual) Band Neutrophils % Lymphocytes % Monocytes % Neutrophils # (Manual) Metamyelocytes Myelocytes Differential Comment Toxic Vacuolation Platelet Estimate Plt Morphology Comment PT INR APTT Puncture Site RT RADIAL Patient Temperature 98.6 HCO3 1 L* Base Excess -29.4 L O2 Saturation 95 ABG pH 6.92 L* ABG pCO2 7 L* ABG pO2 149 H ABG O2 Content 17.5 ABG Carboxyhemoglobin 1.5 ABG Methemoglobin 1.2 Hemoglobin 12.9 O2 Delivery Device Liter Flow Inspired O2 21 Sodium Potassium Chloride Carbon Dioxide Anion Gap BUN Creatinine Estimated GFR POC Glucose Random Glucose Lactic Acid Calcium Prot Corrected Calcium Phosphorus Magnesium Total Bilirubin AST ALT Alkaline Phosphatase Ammonia Total Creatine Kinase Total Protein Albumin Lipase Vitamin B12 Folate Beta-Hydroxybutyric Acd Free T4 Free T3 pg/dL TSH 3rd Generation Urine Color YELLOW Urine Turbidity HAZY H Urine pH 5.0 Ur Specific [place] 1.021 Urine Protein 100 H Urine Glucose (UA) >=500 Urine Ketones 80 OR GREATER H Urine Occult Blood SMALL H Urine Nitrite NEG Urine Bilirubin NEG Urine Urobilinogen LESS THAN 2 Ur Leukocyte Esterase NEG Urine RBC LESS THAN 1 Urine WBC 10 H Urine Bacteria FEW H Micro UA Comment CATH-CULTURE IND Nasal Screen MRSA (PCR) Salicylates Urine Opiates Screen NEG Acetaminophen Ur Barbiturates Screen NEG Ur Amphetamines Screen POS H U Benzodiazepines Scrn NEG Urine Cocaine Screen NEG U Cannabinoids Screen NEG B-Hydroxybutyrate 04/10/18 04/10/18 04/10/18 17:00 17:57 18:20 WBC RBC Hgb Hct MCV MCH MCHC RDW Plt Count MPV CBC Comment Total Counted Neutrophils % (Manual) Band Neutrophils % Lymphocytes % Monocytes % Neutrophils # (Manual) Metamyelocytes Myelocytes Differential Comment Toxic Vacuolation Platelet Estimate Plt Morphology Comment PT INR APTT Puncture Site RT RADIAL Patient Temperature 98.6 HCO3 2 L* Base Excess -28.4 L O2 Saturation 95 ABG pH 6.95 L* ABG pCO2 9 L* ABG pO2 138 H ABG O2 Content 18.7 ABG Carboxyhemoglobin 1.6 ABG Methemoglobin 1.0 Hemoglobin 13.8 O2 Delivery Device Liter Flow Inspired O2 21 Sodium 145 D 147 H Potassium 6.5 H 4.8 D Chloride 112 H D 116 H Carbon Dioxide 5.2 L LESS THAN 5.0 L Anion Gap 28 H 26 H BUN 26 H 26 H Creatinine 1.55 H 1.54 H Estimated GFR 55 L 56 L POC Glucose Random Glucose 684 H* D 554 H* D Lactic Acid Calcium 6.8 L* D 6.9 L* Prot Corrected Calcium 7.2 L* 7.4 L* Phosphorus Magnesium Total Bilirubin AST ALT Alkaline Phosphatase Ammonia Total Creatine Kinase Total Protein 6.3 L 6.2 L Albumin Lipase Vitamin B12 Folate Beta-Hydroxybutyric Acd Free T4 Free T3 pg/dL TSH 3rd Generation Urine Color Urine Turbidity Urine pH Ur Specific [place] Urine Protein Urine Glucose (UA) Urine Ketones Urine Occult Blood Urine Nitrite Urine Bilirubin Urine Urobilinogen Ur Leukocyte Esterase Urine RBC Urine WBC Urine Bacteria Micro UA Comment Nasal Screen MRSA (PCR) Salicylates Urine Opiates Screen Acetaminophen Ur Barbiturates Screen Ur Amphetamines Screen U Benzodiazepines Scrn Urine Cocaine Screen U Cannabinoids Screen B-Hydroxybutyrate 04/10/18 04/10/18 04/10/18 19:21 20:04 22:25 WBC RBC Hgb Hct MCV MCH MCHC RDW Plt Count MPV CBC Comment Total Counted Neutrophils % (Manual) Band Neutrophils % Lymphocytes % Monocytes % Neutrophils # (Manual) Metamyelocytes Myelocytes Differential Comment Toxic Vacuolation Platelet Estimate Plt Morphology Comment PT INR APTT Puncture Site Patient Temperature HCO3 Base Excess O2 Saturation ABG pH ABG pCO2 ABG pO2 ABG O2 Content ABG Carboxyhemoglobin ABG Methemoglobin Hemoglobin O2 Delivery Device Liter Flow Inspired O2 Sodium Potassium Chloride Carbon Dioxide Anion Gap BUN Creatinine Estimated GFR POC Glucose Random Glucose 316 H D Lactic Acid 1.2 Calcium Prot Corrected Calcium Phosphorus Magnesium Total Bilirubin AST ALT Alkaline Phosphatase Ammonia Total Creatine Kinase Total Protein Albumin Lipase Vitamin B12 GREATER THAN 2000 H Folate GREATER THAN 20.0 H Beta-Hydroxybutyric Acd Free T4 Free T3 pg/dL TSH 3rd Generation 0.430 Urine Color Urine Turbidity Urine pH Ur Specific [place] Urine Protein Urine Glucose (UA) Urine Ketones Urine Occult Blood Urine Nitrite Urine Bilirubin Urine Urobilinogen Ur Leukocyte Esterase Urine RBC Urine WBC Urine Bacteria Micro UA Comment Nasal Screen MRSA (PCR) MRSA NOT DETECTED Salicylates Urine Opiates Screen Acetaminophen Ur Barbiturates Screen Ur Amphetamines Screen U Benzodiazepines Scrn Urine Cocaine Screen U Cannabinoids Screen B-Hydroxybutyrate 04/10/18 04/10/18 04/10/18 22:25 22:25 22:25 WBC RBC Hgb Hct MCV MCH MCHC RDW Plt Count MPV CBC Comment Total Counted Neutrophils % (Manual) Band Neutrophils % Lymphocytes % Monocytes % Neutrophils # (Manual) Metamyelocytes Myelocytes Differential Comment Toxic Vacuolation Platelet Estimate Plt Morphology Comment PT INR APTT Puncture Site Patient Temperature HCO3 Base Excess O2 Saturation ABG pH ABG pCO2 ABG pO2 ABG O2 Content ABG Carboxyhemoglobin ABG Methemoglobin Hemoglobin O2 Delivery Device Liter Flow Inspired O2 Sodium Potassium Chloride Carbon Dioxide Anion Gap BUN Creatinine Estimated GFR POC Glucose Random Glucose Lactic Acid Calcium Prot Corrected Calcium Phosphorus Magnesium Total Bilirubin AST ALT Alkaline Phosphatase Ammonia Total Creatine Kinase 123 Total Protein Albumin Lipase Vitamin B12 Folate Beta-Hydroxybutyric Acd Free T4 Free T3 pg/dL TSH 3rd Generation Urine Color Urine Turbidity Urine pH Ur Specific [place] Urine Protein Urine Glucose (UA) Urine Ketones Urine Occult Blood Urine Nitrite Urine Bilirubin Urine Urobilinogen Ur Leukocyte Esterase Urine RBC Urine WBC Urine Bacteria Micro UA Comment Nasal Screen MRSA (PCR) Salicylates 7.5 Urine Opiates Screen Acetaminophen LESS THAN 2.0 L Ur Barbiturates Screen Ur Amphetamines Screen U Benzodiazepines Scrn Urine Cocaine Screen U Cannabinoids Screen B-Hydroxybutyrate 04/10/18 04/10/18 04/10/18 22:25 22:25 22:25 WBC RBC Hgb Hct MCV MCH MCHC RDW Plt Count MPV CBC Comment Total Counted Neutrophils % (Manual) Band Neutrophils % Lymphocytes % Monocytes % Neutrophils # (Manual) Metamyelocytes Myelocytes Differential Comment Toxic Vacuolation Platelet Estimate Plt Morphology Comment PT 10.7 INR 1.1 APTT 23.4 L Puncture Site Patient Temperature HCO3 Base Excess O2 Saturation ABG pH ABG pCO2 ABG pO2 ABG O2 Content ABG Carboxyhemoglobin ABG Methemoglobin Hemoglobin O2 Delivery Device Liter Flow Inspired O2 Sodium 149 H Potassium 4.3 Chloride 119 H Carbon Dioxide 6.0 L Anion Gap 24 H BUN 26 H Creatinine 1.44 H Estimated GFR 60 L POC Glucose Random Glucose 320 H Lactic Acid Calcium 7.5 L Prot Corrected Calcium Phosphorus Magnesium Total Bilirubin AST ALT Alkaline Phosphatase Ammonia 32 Total Creatine Kinase Total Protein Albumin Lipase Vitamin B12 Folate Beta-Hydroxybutyric Acd Free T4 Free T3 pg/dL TSH 3rd Generation Urine Color Urine Turbidity Urine pH Ur Specific [place] Urine Protein Urine Glucose (UA) Urine Ketones Urine Occult Blood Urine Nitrite Urine Bilirubin Urine Urobilinogen Ur Leukocyte Esterase Urine RBC Urine WBC Urine Bacteria Micro UA Comment Nasal Screen MRSA (PCR) Salicylates Urine Opiates Screen Acetaminophen Ur Barbiturates Screen Ur Amphetamines Screen U Benzodiazepines Scrn Urine Cocaine Screen U Cannabinoids Screen B-Hydroxybutyrate 04/10/18 04/11/18 04/11/18 22:25 04:36 04:36 WBC 20.1 H RBC 4.70 Hgb 13.8 Hct 41.1 MCV 87.5 D MCH 29.3 MCHC 33.5 RDW 13.3 Plt Count 249 D MPV 8.1 CBC Comment Total Counted Neutrophils % (Manual) Band Neutrophils % Lymphocytes % Monocytes % Neutrophils # (Manual) Metamyelocytes Myelocytes Differential Comment Toxic Vacuolation Platelet Estimate Plt Morphology Comment PT INR APTT Puncture Site Patient Temperature HCO3 Base Excess O2 Saturation ABG pH ABG pCO2 ABG pO2 ABG O2 Content ABG Carboxyhemoglobin ABG Methemoglobin Hemoglobin O2 Delivery Device Liter Flow Inspired O2 Sodium 152 H Potassium 4.2 Chloride 122 H Carbon Dioxide 13.1 L Anion Gap 17 H BUN 25 H Creatinine 1.55 H Estimated GFR 55 L POC Glucose Random Glucose 150 H D Lactic Acid Calcium 8.1 L Prot Corrected Calcium Phosphorus 1.4 L D 1.6 L Magnesium 2.1 D 2.0 Total Bilirubin 0.4 AST 31 ALT 33 Alkaline Phosphatase 117 Ammonia Total Creatine Kinase Total Protein 6.3 L Albumin 3.3 L Lipase Vitamin B12 Folate Beta-Hydroxybutyric Acd Free T4 Free T3 pg/dL TSH 3rd Generation Urine Color Urine Turbidity Urine pH Ur Specific [place] Urine Protein Urine Glucose (UA) Urine Ketones Urine Occult Blood Urine Nitrite Urine Bilirubin Urine Urobilinogen Ur Leukocyte Esterase Urine RBC Urine WBC Urine Bacteria Micro UA Comment Nasal Screen MRSA (PCR) Salicylates Urine Opiates Screen Acetaminophen Ur Barbiturates Screen Ur Amphetamines Screen U Benzodiazepines Scrn Urine Cocaine Screen U Cannabinoids Screen B-Hydroxybutyrate 4.69 H D 04/11/18 04/11/18 04/11/18 06:54 10:49 10:49 WBC RBC Hgb Hct MCV MCH MCHC RDW Plt Count MPV CBC Comment Total Counted Neutrophils % (Manual) Band Neutrophils % Lymphocytes % Monocytes % Neutrophils # (Manual) Metamyelocytes Myelocytes Differential Comment Toxic Vacuolation Platelet Estimate Plt Morphology Comment PT INR APTT Puncture Site RT RADIAL Patient Temperature 98.6 HCO3 6 L* Base Excess -19.8 L O2 Saturation 95 ABG pH 7.26 L* ABG pCO2 15 L* ABG pO2 122 H ABG O2 Content 17.7 ABG Carboxyhemoglobin 1.6 ABG Methemoglobin 1.6 Hemoglobin 13.1 O2 Delivery Device N Liter Flow Inspired O2 Sodium 149 H Potassium 3.9 Chloride 120 H Carbon Dioxide 11.4 L Anion Gap 18 H BUN 27 H Creatinine 1.78 H Estimated GFR 47 L POC Glucose Random Glucose 291 H D Lactic Acid Calcium 8.0 L Prot Corrected Calcium Phosphorus 3.2 D Magnesium 1.9 Total Bilirubin AST ALT Alkaline Phosphatase Ammonia Total Creatine Kinase Total Protein Albumin Lipase Vitamin B12 Folate Beta-Hydroxybutyric Acd Free T4 0.79 Free T3 pg/dL 1.06 L TSH 3rd Generation Urine Color Urine Turbidity Urine pH Ur Specific [place] Urine Protein Urine Glucose (UA) Urine Ketones Urine Occult Blood Urine Nitrite Urine Bilirubin Urine Urobilinogen Ur Leukocyte Esterase Urine RBC Urine WBC Urine Bacteria Micro UA Comment Nasal Screen MRSA (PCR) Salicylates Urine Opiates Screen Acetaminophen Ur Barbiturates Screen Ur Amphetamines Screen U Benzodiazepines Scrn Urine Cocaine Screen U Cannabinoids Screen B-Hydroxybutyrate 4.30 H 04/11/18 04/11/18 04/11/18 16:25 17:20 21:04 WBC RBC Hgb Hct MCV MCH MCHC RDW Plt Count MPV CBC Comment Total Counted Neutrophils % (Manual) Band Neutrophils % Lymphocytes % Monocytes % Neutrophils # (Manual) Metamyelocytes Myelocytes Differential Comment Toxic Vacuolation Platelet Estimate Plt Morphology Comment PT INR APTT Puncture Site RT RADIAL Patient Temperature 98.6 HCO3 17 L Base Excess -7.5 L O2 Saturation 95 ABG pH 7.34 L ABG pCO2 32 L ABG pO2 100 ABG O2 Content 17.5 ABG Carboxyhemoglobin 1.5 ABG Methemoglobin 1.6 Hemoglobin 13.0 O2 Delivery Device Liter Flow Inspired O2 21 Sodium 150 H Potassium 3.8 Chloride 123 H Carbon Dioxide 18.3 L Anion Gap 9 BUN 25 H Creatinine 1.76 H Estimated GFR 48 L POC Glucose Random Glucose 193 H Lactic Acid Calcium 8.1 L Prot Corrected Calcium Phosphorus 2.8 Magnesium 1.8 Total Bilirubin AST ALT Alkaline Phosphatase Ammonia Total Creatine Kinase Total Protein Albumin Lipase Vitamin B12 Folate Beta-Hydroxybutyric Acd Free T4 Free T3 pg/dL TSH 3rd Generation Urine Color Urine Turbidity Urine pH Ur Specific [place] Urine Protein Urine Glucose (UA) Urine Ketones Urine Occult Blood Urine Nitrite Urine Bilirubin Urine Urobilinogen Ur Leukocyte Esterase Urine RBC Urine WBC Urine Bacteria Micro UA Comment Nasal Screen MRSA (PCR) Salicylates Urine Opiates Screen Acetaminophen Ur Barbiturates Screen Ur Amphetamines Screen U Benzodiazepines Scrn Urine Cocaine Screen U Cannabinoids Screen B-Hydroxybutyrate 3.16 H D 04/11/18 04/12/18 04/12/18 22:26 03:16 11:25 WBC RBC Hgb Hct MCV MCH MCHC RDW Plt Count MPV CBC Comment Total Counted Neutrophils % (Manual) Band Neutrophils % Lymphocytes % Monocytes % Neutrophils # (Manual) Metamyelocytes Myelocytes Differential Comment Toxic Vacuolation Platelet Estimate Plt Morphology Comment PT INR APTT Puncture Site Patient Temperature HCO3 Base Excess O2 Saturation ABG pH ABG pCO2 ABG pO2 ABG O2 Content ABG Carboxyhemoglobin ABG Methemoglobin Hemoglobin O2 Delivery Device Liter Flow Inspired O2 Sodium 145 146 H Potassium 3.7 3.4 L Chloride 115 H D 116 H Carbon Dioxide 14.0 L 19.0 L Anion Gap 16 H 11 BUN 28 H 28 H Creatinine 1.76 H 1.90 H Estimated GFR 48 L 44 L POC Glucose Random Glucose 284 H 251 H Lactic Acid Calcium 7.8 L 8.1 L Prot Corrected Calcium Phosphorus 3.9 D 3.3 Magnesium 1.8 1.8 Total Bilirubin AST ALT Alkaline Phosphatase Ammonia Total Creatine Kinase Total Protein Albumin Lipase Vitamin B12 Folate Beta-Hydroxybutyric Acd Free T4 Free T3 pg/dL TSH 3rd Generation Urine Color Urine Turbidity Urine pH Ur Specific [place] Urine Protein Urine Glucose (UA) Urine Ketones Urine Occult Blood Urine Nitrite Urine Bilirubin Urine Urobilinogen Ur Leukocyte Esterase Urine RBC Urine WBC Urine Bacteria Micro UA Comment Nasal Screen MRSA (PCR) Salicylates Urine Opiates Screen Acetaminophen Ur Barbiturates Screen Ur Amphetamines Screen U Benzodiazepines Scrn Urine Cocaine Screen U Cannabinoids Screen B-Hydroxybutyrate 0.14 D 04/12/18 04/12/18 04/13/18 11:25 21:11 07:24 WBC 8.5 RBC 3.81 L Hgb 11.5 L D Hct 33.0 L MCV 86.6 MCH 30.1 MCHC 34.7 RDW 13.7 Plt Count 161 D MPV 8.1 CBC Comment Total Counted Neutrophils % (Manual) Band Neutrophils % Lymphocytes % Monocytes % Neutrophils # (Manual) Metamyelocytes Myelocytes Differential Comment Toxic Vacuolation Platelet Estimate Plt Morphology Comment PT INR APTT Puncture Site Patient Temperature HCO3 Base Excess O2 Saturation ABG pH ABG pCO2 ABG pO2 ABG O2 Content ABG Carboxyhemoglobin ABG Methemoglobin Hemoglobin O2 Delivery Device Liter Flow Inspired O2 Sodium 141 Potassium 3.8 Chloride 112 H Carbon Dioxide 21.2 Anion Gap 8 BUN 25 H Creatinine 1.41 H Estimated GFR 62 L POC Glucose 198 H Random Glucose 251 H Lactic Acid Calcium 7.6 L Prot Corrected Calcium Phosphorus Magnesium Total Bilirubin AST ALT Alkaline Phosphatase Ammonia Total Creatine Kinase Total Protein Albumin Lipase Vitamin B12 Folate Beta-Hydroxybutyric Acd Free T4 Free T3 pg/dL TSH 3rd Generation Urine Color Urine Turbidity Urine pH Ur Specific [place] Urine Protein Urine Glucose (UA) Urine Ketones Urine Occult Blood Urine Nitrite Urine Bilirubin Urine Urobilinogen Ur Leukocyte Esterase Urine RBC Urine WBC Urine Bacteria Micro UA Comment Nasal Screen MRSA (PCR) Salicylates Urine Opiates Screen Acetaminophen Ur Barbiturates Screen Ur Amphetamines Screen U Benzodiazepines Scrn Urine Cocaine Screen U Cannabinoids Screen B-Hydroxybutyrate 0.31 04/13/18 04/13/18 04/13/18 08:30 08:30 08:30 WBC RBC Hgb Hct MCV MCH MCHC RDW Plt Count MPV CBC Comment Total Counted Neutrophils % (Manual) Band Neutrophils % Lymphocytes % Monocytes % Neutrophils # (Manual) Metamyelocytes Myelocytes Differential Comment Toxic Vacuolation Platelet Estimate Plt Morphology Comment PT INR APTT Puncture Site Patient Temperature HCO3 Base Excess O2 Saturation ABG pH ABG pCO2 ABG pO2 ABG O2 Content ABG Carboxyhemoglobin ABG Methemoglobin Hemoglobin O2 Delivery Device Liter Flow Inspired O2 Sodium Cancelled 143 Potassium Cancelled 3.7 Chloride Cancelled 110 H Carbon Dioxide Cancelled 24.1 Anion Gap Cancelled 9 BUN Cancelled 18 Creatinine Cancelled 1.15 Estimated GFR Cancelled 78 L POC Glucose Random Glucose Cancelled 175 H Lactic Acid Calcium Cancelled 7.8 L Prot Corrected Calcium Phosphorus Cancelled 2.9 Magnesium Cancelled 1.8 Total Bilirubin AST ALT Alkaline Phosphatase Ammonia Total Creatine Kinase Total Protein Albumin Lipase Vitamin B12 Folate Beta-Hydroxybutyric Acd Cancelled 0.11 Free T4 Free T3 pg/dL TSH 3rd Generation Urine Color Urine Turbidity Urine pH Ur Specific [place] Urine Protein Urine Glucose (UA) Urine Ketones Urine Occult Blood Urine Nitrite Urine Bilirubin Urine Urobilinogen Ur Leukocyte Esterase Urine RBC Urine WBC Urine Bacteria Micro UA Comment Nasal Screen MRSA (PCR) Salicylates Urine Opiates Screen Acetaminophen Ur Barbiturates Screen Ur Amphetamines Screen U Benzodiazepines Scrn Urine Cocaine Screen U Cannabinoids Screen B-Hydroxybutyrate Assessment and Plan - Plan Diabetic ketoacidosis resolved Uncontrolled diabetes is now more controlled with current regimen. Patient counseled on the importance of checking his sugars frequently to remain compliant with his regimen patient has met maximal benefit from hospitalization and is clinically stable for discharge. Notifying of referral for outpatient endocrinology given that the patient is a type I diabetic with a history of DKA' s.
--- NOTE | 2018-05-08 15:28 | P.DS ---
Date of admission: 04/10/18 18:02 Primary care physician: UNKNOWN Brief History from admission: 22-year-old male with past medical history type 1 diabetes mellitus and polysubstance abuse (though he specifically denies IV drug use) who presented to [facility] emergency department with altered mental status and hyperglycemia. He was found to be in severe DKA with acute kidney injury. He tells me that he ran out of insulin but he cannot tell me when his last dose was. Glucose is 875. PH is 6.85/PaCO2 of 7/PO2 of 159. UA is positive for ketones with beta hydroxybutyrate level 12.4. Bicarb is 3.2 with anion gap of 30. BUN and creatinine are 26 and 2.09 respectively. He has received 2 L normal saline bolus per EVAC followed by additional 2 L normal saline bolus. Insulin drip was initiated at 16: 48 after receiving 6.3 units IV bolus, bicarb 100 MEQ.. Repeat labs are pending. Patient denies pain; specifically denies headache, neck pain, chest pain, abdominal pain, cough. He has had multiple prior admissions for DKA, the most recent of which was 03/14/18. He was seen in the emergency department 03/18/18 for low back pain with no neurologic symptoms and had a negative CT abdomen pelvis. DS: Medications - Discharge Medications Prescriptions: blood sugar diagnostic [[facility] Test Strips] #100 each blood-glucose meter [[facility] Blood Glucose Monitor] #1 each insulin U-500 syringe-needle [BD Insulin Syringe U-500] #100 each lancets [[facility] Lancet] #100 each Novolin 70/30 U-100 Insulin 45 units SUB-Q BID #1 vial DS: Summary Hospital Course: Patient was initially admitted to the ICU, started on IV fluids and an insulin drip. His sugars stabilized and was weaned off the insulin drip. His mental status returned to baseline. Patient was counseled on the importance of checking his sugars frequently to remain compliant with his regimen patient has met maximal benefit from hospitalization and is clinically stable for discharge. He was notified of referral for outpatient endocrinology given that the patient is a type I diabetic with a history of DKA's. - Time Spent with Patient Total time spent providing and/or coordinating discharge services: Less than 30 minutes Exam Narrative: Lying in bed, awake and alert, no acute distress, abdomen soft, nontender, nondistended Results Procedures completed during hospitalization: none Discharge Plan - Discharge Disposition Patient Disposition: 01 Discharge Home - Discharge Condition Condition: Fair - Discharge Order Discharge Orders: Discharge Order (Routine); Ordered 04/13/18 Ordered By: Wander Robles - Physicians Team Primary Care Provider: UNKNOWN, Attending Provider: Wander Robles - Rxs /Orders / Referrals /Forms Prescriptions: New (DME) blood sugar diagnostic [[facility] Test Strips] Strip Qty: 100 RF: 0 (DME) blood-glucose meter [[facility] Blood Glucose Monitor] Misc Qty: 1 RF: 0 (DME) insulin U-500 syringe-needle [BD Insulin Syringe U-500] 1/2 mL 31 gauge x 15/64" Syringe Qty: 100 RF: 0 (DME) lancets [[facility] Lancet] 30 gauge Misc Qty: 100 RF: 0 Continue Novolin 70/30 U-100 Insulin 45 units Sub-Q BID Qty: 1 RF: 1 Referrals: UNKNOWN, [Primary Care Provider] - See Instructions Kwame Mckeon MD [Physician] - See Instructions (1 week) - Discharge Instructions Patient Printed Instructions: Diabetic Ketoacidosis (DC), Meal Planning with Diabetes Exchanges (DC), Methamphetamine Abuse (GEN) Additional Instructions: Check sugars three times a day before meals
== END 2018-04-13 18:22 | disposition home or self-care (01) ==
LOC: HIMC 18:02 → N07 04-12 15:46
PROVIDERS: ADMIT Hospitalist; ATTEND Hospitalist

== ENCOUNTER 2018-06-29 10:32 | Inpatient (IN) ==
[2018-06-29] MEDS ORDERED: Sod Chloride 0.9% Inj 1,000 ML IV.SIG ONE ×2 (11:06)
[2018-06-29] MEDS ORDERED: Dextrose 50% in Water 50 ML Vial IV.PUSH PRN ×2 (11:06→17:34)
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
[2018-06-29 11:22] LABS: VBG Base Excess 1.7 mmol/L (-2-2); VBG Blood Gas Oxygen Content 14.1 Vol % (9.0-17.0); VBG PCO2 47 mmHG (44-48); VBG PH 7.37 (7.360-7.400); VBG PO2 69 mmHG (35-40)
[2018-06-29 11:27] LABS: Bilirubin,Urine Negative (Negative); Clarity,Urine Clear (Clear); Leukocyte Esterase,Urine Negative (Negative); Nitrite,Urine Negative (Negative); Specific Gravity,Urine Less/Equal 1.005 (1.002-1.035); Urobilinogen,Urine 0.2 mg/dL (Less than 2)
[2018-06-29 11:28] LABS: Baso % (Auto) 0.3 % (0.0-2.0); Eos # (Auto) 0.1 th/mm3 (0.0-0.4); Eos % (Auto) 1.8 % (0.0-4.0); Hematocrit 37.3 % (39.0-51.0); Hemoglobin 11.9 gm/dL (13.0-17.0); Lymph # (Auto) 1.5 th/mm3 (1.0-4.8); Lymph % (Auto) 19.8 % (9.0-44.0); Mean Corpuscular HGB Conc 31.9 % (32.0-36.0); Mean Corpuscular Hemoglobin 29.1 pg (27.0-34.0); Mean Corpuscular Volume 91.3 fL (80.0-100.0); Mean Platelet Volume 8.2 fL (7.0-11.0); Mono # (Auto) 0.9 th/mm3 (0.0-0.9); Mono % (Auto) 12.5 % (0.0-8.0); Neut # (Auto) 5.1 th/mm3 (1.8-7.7); Neut % (Auto) 65.6 % (16.0-70.0); Platelet Count 395 th/mm3 (150-450); Red Blood Count 4.09 mil/mm3 (4.50-5.90); White Blood Count 7.6 th/mm3 (4.0-11.0)
[2018-06-29 11:30] LABS: Color,Urine Straw (Yellw/Straw)
[2018-06-29 11:31] LABS: Collection Time,Urine 1113 hours
[2018-06-29 11:34] LABS: Squamous Epithelial Cell,Urine 0-5 /hpf (0-5)
[2018-06-29 11:43] LABS: Amphetamine Screen,Urine Neg (Neg)
[2018-06-29 11:44] LABS: Cocaine Screen,Urine Neg (Neg)
[2018-06-29 11:45] LABS: Barbiturate Screen,Urine Neg (Neg); Cannabinoid Screen,Urine Neg (Neg)
[2018-06-29 11:47] LABS: Alanine Aminotransferase 61 U/L (12-78); Albumin 4.1 g/dL (3.4-5.0); Alkaline Phosphatase 205 U/L (45-117); Anion Gap 12 meq/L (5-15); Aspartate Aminotransferase 35 U/L (15-37); Beta Hydroxybutyric Acid 0.51 mmol/L (0.00-0.39); Blood Urea Nitrogen 23 mg/dL (7-18); Calcium 8.9 mg/dL (8.5-10.1); Carbon Dioxide 25.4 meq/L (21.0-32.0); Chloride 78 meq/L (98-107); Glomerular Filtration Rate 68 mL/min (>89); Lipase 419 U/L (73-393); Opiate Screen,Urine Neg (Neg); Phosphorus 4.5 mg/dL (2.5-4.9); Potassium 5.3 meq/L (3.5-5.1); Total Protein 7.7 g/dL (6.4-8.2)
[2018-06-29 11:53] LABS: Glucose,Random 1292 mg/dL (74-106); Sodium 115 meq/L (136-145)
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
[2018-06-29] MEDS ORDERED: Potassium Chlor 20 mEq Premix 20 MEQ/100 ML PIGGYBACK IV.SIG PRN ×5 (12:28)
[2018-06-29] MEDS ORDERED: Sodium Phosphate Inj 15 MMOL in Sodium Chlor 0.9% Inj 100 ML IV.SIG PRN (12:28)
[2018-06-29] MEDS ORDERED: Insulin Regular (For Infusion) 100 UNIT in Sodium Chlor 0.9% Inj 99 ML IV.CONT PRN (12:28)
[2018-06-29] MEDS ORDERED: Potassium Chlor 40 mEq Premix 40 MEQ/100 ML PIGGYBACK IV.SIG PRN ×2 (12:28)
[2018-06-29] MEDS ORDERED: Ketorolac Inj 30 MG/ML (IVP) Vial IV.PUSH ONE (12:33)
[2018-06-29] MEDS ORDERED: Sod Chloride 0.9% Inj 1,000 ML IV.SIG SCH (12:45)
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
[2018-06-29] MEDS: Sod Chloride 0.9% Inj 1,000 ML IV.CONT SCH ×3 (13:24→20:52)
--- NOTE | 2018-06-29 13:53 | ECG ---
Date Performed: 06/29/2018 Time Performed: 11:12:07 PTAGE: 22 years EKG: Sinus rhythm POSSIBLE LEFT ATRIAL ENLARGEMENT BORDERLINE ECG PREVIOUS TRACING : 04/10/2018 22.30 DOCTOR: Allie Ambrosio Interpretating Date/Time 06/29/2018 13:51:45
[2018-06-29 14:10] LABS: Calcium 8.9 mg/dL (8.5-10.1); Carbon Dioxide 21.7 meq/L (21.0-32.0); Potassium 3.7 meq/L (3.5-5.1)
[2018-06-29] MEDS: Potassium Chlor 20 mEq Premix 20 MEQ/100 ML PIGGYBACK IV.SIG PRN ×2 (15:23→17:30)
[2018-06-29] MEDS: Dextrose 5%/NaCl 0.9% Inj 1,000 ML IV.CONT SCH ×3 (16:10→23:54)
[2018-06-29 17:02] LABS: Anion Gap 11 meq/L (5-15); Blood Urea Nitrogen 18 mg/dL (7-18); Calcium 8.9 mg/dL (8.5-10.1); Carbon Dioxide 25.5 meq/L (21.0-32.0); Chloride 100 meq/L (98-107); Glomerular Filtration Rate Greater Than 89 mL/min (>89); Glucose,Random 182 mg/dL (74-106); Potassium 3.6 meq/L (3.5-5.1); Sodium 136 meq/L (136-145)
[2018-06-29] MEDS ORDERED: DC previous DKA orders (HMC 1917) OTHER ONE (17:34)
[2018-06-29] MEDS ORDERED: DC Insulin drip 2 hrs post basal insulin dose OTHER ONE (17:34)
[2018-06-29] MEDS ORDERED: Insulin Detemir Inj 1,000 UNIT/10 ML Vial SQ ONE (17:36)
[2018-06-29] MEDS ORDERED: Ketorolac Inj 30 MG/ML (IVP) Vial IV.PUSH PRN (18:00)
[2018-06-29 20:49] LABS: Chloride 101 meq/L (98-107); Potassium 4.3 meq/L (3.5-5.1); Sodium 137 meq/L (136-145)
[2018-06-29 20:52] LABS: Calcium 8.8 mg/dL (8.5-10.1)
[2018-06-29 20:53] LABS: Anion Gap 8 meq/L (5-15); Blood Urea Nitrogen 19 mg/dL (7-18); Carbon Dioxide 27.8 meq/L (21.0-32.0); Glucose,Random 148 mg/dL (74-106)
[2018-06-29 20:56] LABS: Glomerular Filtration Rate Greater Than 89 mL/min (>89)
[2018-06-29] MEDS ORDERED: Insulin Detemir Inj 1,000 UNIT/10 ML Vial SQ SCH (21:00)
[2018-06-29] MEDS: Insulin NovoLOG Aspart Correctional Sugar Inj SQ SCH (21:55)
[2018-06-30 01:17] LABS: Chloride 101 meq/L (98-107); Potassium 3.8 meq/L (3.5-5.1); Sodium 137 meq/L (136-145)
[2018-06-30 01:19] LABS: Calcium 8.5 mg/dL (8.5-10.1)
[2018-06-30 01:20] LABS: Anion Gap 8 meq/L (5-15); Blood Urea Nitrogen 18 mg/dL (7-18); Carbon Dioxide 28.1 meq/L (21.0-32.0); Glucose,Random 74 mg/dL (74-106)
[2018-06-30] MEDS: Sod Chloride 0.9% Inj 1,000 ML IV.CONT SCH ×5 (01:21→17:03)
[2018-06-30 01:23] LABS: Glomerular Filtration Rate Greater Than 89 mL/min (>89)
[2018-06-30] MEDS ORDERED: Chlorhexidine Gluconate 2% 1 Pack (2 Cloths) TOPICAL SCH (04:00)
[2018-06-30] MEDS ORDERED: Chlorhexidine Gluconate 2% 1 Pack (2 Cloths) TOPICAL PRN (04:00)
[2018-06-30 05:24] LABS: Baso % (Auto) 0.2 % (0.0-2.0); Eos # (Auto) 0.2 th/mm3 (0.0-0.4); Eos % (Auto) 1.8 % (0.0-4.0); Hemoglobin 11.5 gm/dL (13.0-17.0); Lymph # (Auto) 1.6 th/mm3 (1.0-4.8); Lymph % (Auto) 14.6 % (9.0-44.0); Mean Corpuscular HGB Conc 32.8 % (32.0-36.0); Mean Corpuscular Hemoglobin 28.1 pg (27.0-34.0); Mean Corpuscular Volume 85.6 fL (80.0-100.0); Mean Platelet Volume 7.4 fL (7.0-11.0); Mono # (Auto) 1.2 th/mm3 (0.0-0.9); Mono % (Auto) 11.2 % (0.0-8.0); Neut # (Auto) 7.8 th/mm3 (1.8-7.7); Neut % (Auto) 72.2 % (16.0-70.0); Platelet Count 413 th/mm3 (150-450); Red Blood Count 4.08 mil/mm3 (4.50-5.90); Red Cell Distribution Width 13.2 % (11.6-17.2); White Blood Count 10.8 th/mm3 (4.0-11.0)
[2018-06-30 05:34] LABS: Chloride 101 meq/L (98-107); Potassium 3.5 meq/L (3.5-5.1); Sodium 139 meq/L (136-145)
[2018-06-30 05:41] LABS: Anion Gap 10 meq/L (5-15); Blood Urea Nitrogen 19 mg/dL (7-18); Carbon Dioxide 28.2 meq/L (21.0-32.0)
[2018-06-30 05:45] LABS: Calcium 8.6 mg/dL (8.5-10.1)
[2018-06-30 05:49] LABS: Glucose,Random 47 mg/dL (74-106)
[2018-06-30 05:50] LABS: Glomerular Filtration Rate Greater Than 89 mL/min (>89)
[2018-06-30] MEDS: Insulin NovoLOG Aspart Correctional Sugar Inj SQ SCH ×4 (06:26→17:02)
[2018-06-30] MEDS: Dextrose 5%/NaCl 0.9% Inj 1,000 ML IV.CONT SCH ×3 (06:27→16:20)
--- NOTE | 2018-06-30 09:14 | CT ---
EXAM DATE: 06/30/2018 9:04 AM EDT AGE/SEX: 22 years / Male INDICATIONS: Follow up of findings from prior CT chest two weeks ago. CLINICAL DATA: This is the patient's subsequent encounter. Patient reports that signs and symptoms h ave been present for 2 weeks and indicates a pain score of 0/10. MEDICAL/SURGICAL HISTORY: Diabetes. None. RADIATION DOSE: 7.78 CTDI (mGy) COMPARISON: [facility] [place], CT CHEST W/O CONTRAST, 06/15/2018. . TECHNIQUE: Multiple contiguous axial images were obtained through the chest without contrast. Image s were obtained in suspended respiration using multiple row detector helical technique. Using automa mundo exposure control and adjustment of the mA and/or kV according to patient size, radiation dose was kept as low as reasonably achievable to obtain optimal diagnostic quality images. DICOM format imag e data is available electronically for review and comparison. FINDINGS: Lungs: There has been significant interval improvement of the parenchymal contusion of the right mid dle lobe with small residual area of hypodensity noted on today's examination. No nodule or mass is n oted. No new infiltrate is noted. Mediastinum: There is good visualization of the great vessels of the middle mediastinum. No evidenc e of mediastinal or hilar adenopathy/mass. Pleurae: No evidence of focal thickening or pleural effusion. Axillae: Unremarkable. Bony Structures: There is a subtle fracture involving the anterolateral aspect of the right fifth ri b. Miscellaneous: The examination was extended to include the upper abdomen, and both adrenal glands ar e normal in size and configuration. CONCLUSION: 1. Significant interval improvement of the parenchymal contusion of the right middle lobe with small residual area of hypodensity noted on today's examination. 2. Subtle fracture involving the anterolateral aspect of the right fifth rib. Electronically signed by: Juan Mayes MD 06/30/2018 9:13 AM EDT
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
[2018-06-30 10:44] VITALS: O2SAT 98
[2018-06-30 12:37] LABS: Chloride 100 meq/L (98-107); Potassium 3.6 meq/L (3.5-5.1); Sodium 136 meq/L (136-145)
[2018-06-30 12:39] LABS: Anion Gap 10 meq/L (5-15); Calcium 8.1 mg/dL (8.5-10.1); Carbon Dioxide 26.3 meq/L (21.0-32.0)
[2018-06-30 12:44] LABS: Blood Urea Nitrogen 20 mg/dL (7-18); Glomerular Filtration Rate Greater Than 89 mL/min (>89); Glucose,Random 238 mg/dL (74-106)
[2018-06-30 12:55] VITALS: TEMP 97.8
[2018-06-30 14:48] VITALS: BP 108/67; PULSE 76
[2018-06-30 16:21] VITALS: RESP 10
[2018-07-04 07:52] LABS: Hemoglobin A1c 12.9 % (4.3-6.0)
== END 2018-06-30 17:15 | disposition home or self-care (01) ==
LOC: PHED 10:32 → PHEDA 12:38 → PHICU 14:52
PROVIDERS: ADMIT Family Medicine; ATTEND Family Medicine

== ENCOUNTER 2018-07-02 10:05 | Inpatient (IN) ==
[2018-07-02] MEDS ORDERED: Sod Chloride 0.9% Inj 1,000 ML IV.SIG ONE ×3 (10:38→11:43)
[2018-07-02 10:53] LABS: ABG Base Excess -14.2 mmol/L (-2-2); ABG PCO2 28 mmHg (38-42); ABG PO2 105 mmHg (61-120)
[2018-07-02 10:55] LABS: Baso # (Auto) 0.1 th/mm3 (0.0-0.2); Baso % (Auto) 0.6 % (0.0-2.0); Eos # (Auto) 0.1 th/mm3 (0.0-0.4); Eos % (Auto) 0.6 % (0.0-4.0); Hematocrit 42.1 % (39.0-51.0); Hemoglobin 13.8 gm/dL (13.0-17.0); Lymph # (Auto) 1.6 th/mm3 (1.0-4.8); Lymph % (Auto) 18.3 % (9.0-44.0); Mean Corpuscular HGB Conc 32.8 % (32.0-36.0); Mean Corpuscular Hemoglobin 29.4 pg (27.0-34.0); Mean Corpuscular Volume 89.5 fL (80.0-100.0); Mean Platelet Volume 8.1 fL (7.0-11.0); Mono # (Auto) 0.7 th/mm3 (0.0-0.9); Mono % (Auto) 8.2 % (0.0-8.0); Neut % (Auto) 72.3 % (16.0-70.0); Platelet Count 429 th/mm3 (150-450); White Blood Count 8.5 th/mm3 (4.0-11.0)
[2018-07-02 11:03] LABS: Bilirubin,Urine Negative (Negative); Clarity,Urine Clear (Clear); Color,Urine Yellow (Yellw/Straw); Leukocyte Esterase,Urine Negative (Negative); Nitrite,Urine Negative (Negative); Specific Gravity,Urine Less/Equal 1.005 (1.002-1.035); Urobilinogen,Urine 0.2 mg/dL (Less than 2)
--- NOTE | 2018-07-02 11:05 | ED ---
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 Now he comes in stating that he feels terrible has had nausea and vomiting over the past 3 days and he has not had his insulin over that period of time. Onset (ago): day(s) (3) Radiation: non-radiation Severity: mild Severity scale (1-10): 2 Relieving factors: none Exacerbating factors: none Associated symptoms: denies other symptoms Treatments prior to arrival: none Related Data Home Medications Medication Instructions Recorded Confirmed gabapentin 06/29/18 Previous Rx's Medication Instructions Recorded blood sugar diagnostic [[facility]ocate #100 each 04/13/18 Test Strips] blood-glucose meter [[facility]ocate #1 each 04/13/18 Blood Glucose Monitor] insulin U-500 syringe-needle [BD #100 each 04/13/18 Insulin Syringe U-500] lancets [[facility] Lancet] #100 each 04/13/18 Novolin 70/30 U-100 Insulin 45 units SUB-Q BID #1 vial 06/30/18 Allergies Allergy/AdvReac Type Severity Reaction Status Date / Time No Known Allergies Allergy Verified 07/02/18 10:12 Review of Systems ROS: all other systems reviewed are negative PMFSH History History Provided By: Patient Medical History Medical History Diabetes (Acute) Surgical History Surgical History No history of previous surgery (Acute) Social History Social History Substance History: Past History Second Hand Smoke Exposure: Yes Smoking Status: Current every day smoker Tobacco Type: Cigarettes How Often Do You Have a Drink Containing Alcohol: Never Immunization History Tetanus Immunization: >5 Years Hx Influenza Vaccine This Season: No Exam Narrative Exam Narrative: GENERAL: Thin male in apparent distress. SKIN: Warm and dry. HEAD: Atraumatic. Normocephalic. EYES: Pupils equal and round. No scleral icterus. No injection or drainage. ENT: No nasal bleeding or discharge. Mucous membranes dry NECK: Trachea midline. No JVD. CARDIOVASCULAR: Tachycardic rate regular rhythm . no rubs or gallops RESPIRATORY: No accessory muscle use. Clear to auscultation. Breath sounds equal bilaterally. GASTROINTESTINAL: Abdomen soft, non-tender, nondistended. No rebound or guarding MUSCULOSKELETAL: Extremities without clubbing, cyanosis, or edema. No obvious deformities. NEUROLOGICAL: Awake and alert. No obvious cranial nerve deficits. Motor grossly within normal limits. Five out of 5 muscle strength in the arms and legs. Normal speech. PSYCHIATRIC: Appropriate mood and affect; insight and judgment normal. Course Initial Documented Vital Signs Temperature 97.5 F L 07/02/18 10:08 Pulse Rate 102 H 07/02/18 10:08 Respiratory Rate 16 07/02/18 10:08 Blood Pressure 104/58 L 07/02/18 10:08 Pulse Oximetry 100 07/02/18 10:08 Last Documented Vital Signs Temperature 97.5 F L 07/02/18 10:08 Pulse Rate 84 07/02/18 10:55 Respiratory Rate 20 07/02/18 10:55 Blood Pressure 114/64 07/02/18 10:55 Pulse Oximetry 100 07/02/18 10:55 Critical Care Time Critical Care Time: Yes Total Critical Care Time: 45 Attestation: Aggregate critical care time was 45 minutes. Time to perform other separately billable procedures was not included in the critical care time. My time did not include minutes spent treating any other patients simultaneously or on activities that did not directly contribute to the patient's treatment. The services I provided to this patient were to treat and/or prevent clinically significant deterioration that could result in: [Dehydration, worsening acidosis and ] I provided critical care services requiring my management, as noted below: Chart data review, documentation time, medication orders and management, vital sign assessments/reviewing monitor data, ordering and reviewing lab tests, ordering and interpreting/reviewing x-rays and diagnostic studies, care of the patient and discussion of the patient with the admitting physicians. Medical Decision Making MDM Narrative Medical decision making narrative: Patient's blood glucose read too high which generally means is over 600, and the patient's ABG shows a pH of 7.245, PCO2 28 and PO2 105 this is all consistent with diabetic ketoacidosis CBC does not show any leukocytosis anemia or left shift. 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 Lab Data Lab results reviewed: Yes I reviewed the patient's lab results. Result diagrams: 07/02/18 10:50 07/02/18 10:50 Lab Results 07/02/18 07/02/18 07/02/18 Range/Units 10:15 10:45 10:50 CBC w Diff Auto diff final WBC 8.5 (4.0-11.0) th/mm3 RBC 4.70 (4.50-5.90) mil/mm3 Hgb 13.8 (13.0-17.0) gm/dL Hct 42.1 (39.0-51.0) % MCV 89.5 D (80.0-100.0) fL MCH 29.4 (27.0-34.0) pg MCHC 32.8 (32.0-36.0) % RDW 13.0 (11.6-17.2) % Plt Count 429 (150-450) th/mm3 MPV 8.1 (7.0-11.0) fL Neut % (Auto) 72.3 H (16.0-70.0) % Lymph % (Auto) 18.3 (9.0-44.0) % [place] % (Auto) 8.2 H (0.0-8.0) % Eos % (Auto) 0.6 (0.0-4.0) % Baso % (Auto) 0.6 (0.0-2.0) % Neut # (Auto) 6.0 (1.8-7.7) th/mm3 Lymph # (Auto) 1.6 (1.0-4.8) th/mm3 [place] # (Auto) 0.7 (0.0-0.9) th/mm3 Eos # (Auto) 0.1 (0.0-0.4) th/mm3 Baso # (Auto) 0.1 (0.0-0.2) th/mm3 WBC Differential . Differential Comment . Puncture Site Right radial Patient Temperature 98.6 O2 Saturation 95 (90-100) % ABG pH 7.25 L* (7.380-7.420) ABG pCO2 28 L (38-42) mmHg ABG pO2 105 (61-120) mmHg ABG HCO3 12 L* (22-26) mmol/L ABG O2 Content 18.1 (12.0-20.0) Vol % ABG Base Excess -14.2 L (-2-2) mmol/L ABG Methemoglobin 1.5 (0-2) % Martin Test Present Hemoglobin 13.5 (12.0-16.0) G/DL Carboxyhemoglobin 2.1 (0-4) % O2 Delivery Device Room air Inspired O2 21 % Critical Value Yes Sodium (136-145) meq/L Potassium (3.5-5.1) meq/L Chloride (98-107) meq/L Carbon Dioxide (21.0-32.0) meq/L Anion Gap (5-15) meq/L BUN (7-18) mg/dL Creatinine (0.60-1.30) mg/dL Estimated GFR (>89) mL/min POC Glucose Greater than 600 H* (68-110) mg/dl Random Glucose (74-106) mg/dL Calcium (8.5-10.1) mg/dL Total Bilirubin (0.2-1.0) mg/dL AST (15-37) U/L ALT (12-78) U/L Alkaline Phosphatase (45-117) U/L Total Protein (6.4-8.2) g/dL Albumin (3.4-5.0) g/dL Ur Collection Type Urine Color (Yellw/Straw) Urine Clarity (Clear) Urine pH (5.0-8.5) Ur Specific [place] (1.002-1.035) Urine Protein (Neg-Trace) mg/dL Urine Glucose (UA) (Negative) mg/dL Urine Ketones (Negative) mg/dL Urine Occult Blood (Negative) Urine Nitrate (Negative) Urine Bilirubin (Negative) Urine Urobilinogen (Less than 2) mg/dL Ur Leukocyte Esterase (Negative) Urine RBC (0-3) /hpf Urine WBC (0-5) /hpf Ur Squamous Epith Cells (0-5) /hpf Micro UA Comment Ur Microscopic Review Urine Culture Comments 07/02/18 07/02/18 07/02/18 Range/Units 10:50 10:50 11:23 CBC w Diff WBC (4.0-11.0) th/mm3 RBC (4.50-5.90) mil/mm3 Hgb (13.0-17.0) gm/dL Hct (39.0-51.0) % MCV (80.0-100.0) fL MCH (27.0-34.0) pg MCHC (32.0-36.0) % RDW (11.6-17.2) % Plt Count (150-450) th/mm3 MPV (7.0-11.0) fL Neut % (Auto) (16.0-70.0) % Lymph % (Auto) (9.0-44.0) % [place] % (Auto) (0.0-8.0) % Eos % (Auto) (0.0-4.0) % Baso % (Auto) (0.0-2.0) % Neut # (Auto) (1.8-7.7) th/mm3 Lymph # (Auto) (1.0-4.8) th/mm3 [place] # (Auto) (0.0-0.9) th/mm3 Eos # (Auto) (0.0-0.4) th/mm3 Baso # (Auto) (0.0-0.2) th/mm3 WBC Differential Differential Comment Puncture Site Patient Temperature O2 Saturation (90-100) % ABG pH (7.380-7.420) ABG pCO2 (38-42) mmHg ABG pO2 (61-120) mmHg ABG HCO3 (22-26) mmol/L ABG O2 Content (12.0-20.0) Vol % ABG Base Excess (-2-2) mmol/L ABG Methemoglobin (0-2) % Martin Test Hemoglobin (12.0-16.0) G/DL Carboxyhemoglobin (0-4) % O2 Delivery Device Inspired O2 % Critical Value Sodium 122 L* D (136-145) meq/L Potassium 4.9 D (3.5-5.1) meq/L Chloride 80 L D (98-107) meq/L Carbon Dioxide 13.0 L D (21.0-32.0) meq/L Anion Gap 29 H (5-15) meq/L BUN 21 H (7-18) mg/dL Creatinine 1.40 H (0.60-1.30) mg/dL Estimated GFR 62 L (>89) mL/min POC Glucose Greater than 600 H* (68-110) mg/dl Random Glucose 1032 H* D (74-106) mg/dL Calcium 10.6 H D (8.5-10.1) mg/dL Total Bilirubin 1.0 (0.2-1.0) mg/dL AST 29 (15-37) U/L ALT 78 (12-78) U/L Alkaline Phosphatase 225 H (45-117) U/L Total Protein 8.9 H D (6.4-8.2) g/dL Albumin 4.8 (3.4-5.0) g/dL Ur Collection Type Clean catch Urine Color Yellow (Yellw/Straw) Urine Clarity Clear (Clear) Urine pH 5.0 (5.0-8.5) Ur Specific [place] Less/equal 1.005 (1.002-1.035) Urine Protein Negative (Neg-Trace) mg/dL Urine Glucose (UA) 1000 or greater H (Negative) mg/dL Urine Ketones 40 H (Negative) mg/dL Urine Occult Blood Negative (Negative) Urine Nitrate Negative (Negative) Urine Bilirubin Negative (Negative) Urine Urobilinogen 0.2 (Less than 2) mg/dL Ur Leukocyte Esterase Negative (Negative) Urine RBC 0-3 (0-3) /hpf Urine WBC 0-5 (0-5) /hpf Ur Squamous Epith Cells 0-5 (0-5) /hpf Micro UA Comment Culture not ind Ur Microscopic Review Microscopic reviewed Urine Culture Comments Culture not ind ECG Data EKG Prior to Arrival: No Attestation: I personally reviewed and interpreted this ECG as follows: Prior ECG tracings: not available for review Interpretation: EKG shows a normal sinus rhythm of 85 bpm, right atrial enlargement, no evidence of any ST elevation [place] pattern. Discharge Plan Discharge Disposition Patient Disposition: 30 Still Patient Discharge Condition Condition: Fair Discharge Details Diagnosis: Diabetic keto-acidosis, Hyponatremia, Hyperglycemia Physicians Team ED Provider: Xavier Cueto Primary Care Provider: Primary Care Dasia Wing Rxs /Orders / Referrals /Forms Prescriptions: No Action blood-glucose meter [[facility] Blood Glucose Monitor] Misc Qty: 1 RF: 0 lancets [[facility] Lancet] 30 gauge Misc Qty: 100 RF: 0 blood sugar diagnostic [[facility] Test Strips] Strip Qty: 100 RF: 0 insulin U-500 syringe-needle [BD Insulin Syringe U-500] 1/2 mL 31 gauge x 15/ 64" Syringe Qty: 100 RF: 0 gabapentin RF: 0 Novolin 70/30 U-100 Insulin 45 units Sub-Q BID Qty: 1 RF: 1 Referrals: Primary Care Dasia Wing [Primary Care Provider] - See Instructions Status ED Status: With Doctor
[2018-07-02 11:14] LABS: RBC,Urine 0-3 /hpf (0-3); Squamous Epithelial Cell,Urine 0-5 /hpf (0-5); WBC,Urine 0-5 /hpf (0-5)
[2018-07-02] MEDS ORDERED: Insulin Regular (For Infusion) 100 UNIT in Sodium Chlor 0.9% Inj 99 ML IV.CONT PRN (11:21)
[2018-07-02 11:25] LABS: Chloride 80 meq/L (98-107); Potassium 4.9 meq/L (3.5-5.1)
[2018-07-02 11:27] LABS: Sodium 122 meq/L (136-145)
[2018-07-02 11:31] LABS: Alanine Aminotransferase 78 U/L (12-78); Albumin 4.8 g/dL (3.4-5.0); Anion Gap 29 meq/L (5-15); Aspartate Aminotransferase 29 U/L (15-37); Blood Urea Nitrogen 21 mg/dL (7-18); Calcium 10.6 mg/dL (8.5-10.1); Glomerular Filtration Rate 62 mL/min (>89); Total Protein 8.9 g/dL (6.4-8.2)
[2018-07-02 11:33] LABS: Glucose,Random 1032 mg/dL (74-106)
[2018-07-02 11:40] LABS: Alkaline Phosphatase 225 U/L (45-117)
[2018-07-02 11:57] LABS: Beta Hydroxybutyric Acid 8.46 mmol/L (0.00-0.39)
[2018-07-02] MEDS ORDERED: Sodium Phosphate Inj 15 MMOL in Sodium Chlor 0.9% Inj 100 ML IV.SIG PRN (12:07)
[2018-07-02] MEDS ORDERED: Potassium Chlor 40 mEq Premix 40 MEQ/100 ML PIGGYBACK IV.SIG PRN ×2 (12:07)
[2018-07-02] MEDS ORDERED: Potassium Chlor 20 mEq Premix 20 MEQ/100 ML PIGGYBACK IV.SIG PRN ×6 (12:07)
[2018-07-02] MEDS ORDERED: Sod Chloride 0.9% Inj 1,000 ML IV.CONT SCH (12:15)
[2018-07-02] MEDS ORDERED: Senna/Docusate Sodium 8.6/50 MG Tablet PO PRN (12:17)
[2018-07-02] MEDS ORDERED: Docusate Sodium 100 MG Capsule PO PRN (12:17)
[2018-07-02] MEDS ORDERED: Acetaminophen 325 MG Tablet PO PRN (12:17)
[2018-07-02 12:44] LABS: Magnesium 2.9 mg/dL (1.5-2.5); Phosphorus 8.5 mg/dL (2.5-4.9)
[2018-07-02] MEDS ORDERED: Potassium Chlor 20 mEq Premix 20 MEQ/100 ML PIGGYBACK IV.SIG ONE (13:02)
[2018-07-02] MEDS: Dextrose 5%/NaCl 0.9% Inj 1,000 ML IV.CONT SCH ×2 (13:45→19:06)
--- NOTE | 2018-07-02 15:57 | P.HP ---
History of Present Illness Primary Care Physician: No Primary Care Physician Chief Complaint: Nausea and vomiting History of Present Illness: This is a 22-year-old male with a history of insulin-dependent diabetes mellitus with neuropathy recently discharged after being treated for DKA. Patient was unable to pickling solution maker his insulin prescription when he was discharged 3 days ago secondary to lack of transportation. He has been feeling terrible and developed nausea and vomiting today. No fever, chills, blurred vision, dizziness, cough, abdominal pain, UTI symptoms, polyuria, polydipsia and polyphagia. Workup shows he is back in DKA with a pH of 7.25 beta hydroxybutyrate of 8.469, Anion gap 29. He has received 3 L fluid bolus, 6 unit of regular insulin and started on insulin drip. At this time he has no complaints and wants to have something to drink. All other systems reviewed negative Inpatient Certification: I certify that the inpatient services were ordered in accordance with Medicare regulations governing the order. This includes certification that hospital inpatient services are reasonable and necessary and in the case of services not specified as inpatient-only under 42 CFR 419.22(n), that they are appropriately provided as inpatient services in accordance to with the 2-midnight benchmark under 43 CFR 412.3(e) Estimated Total Length of Stay (Days): 2 Plans for Post Hospital Care: Not yet determined Review of Systems All other systems reviewed negative except as stated in HPI PMFSH - History History Provided By: Patient - Medical History Medical History: Medical History (Last Reviewed 07/02/18 @ 15:53 by Fan Francis MD) Diabetes - Surgical History Surgical History: Surgical History (Last Reviewed 07/02/18 @ 15:53 by Fan Francis MD) No history of previous surgery - Family History Family History: Family History (Last Updated 07/02/18 @ 15:53 by Fan Francis MD) Other Family history of diabetes mellitus - Tobacco History Second Hand Smoke Exposure: Yes Tobacco Use In Past 30 Days: Yes Smoking Status: Current every day smoker Tobacco Type: Cigarettes - Alcohol History How Often Do You Have a Drink Containing Alcohol: Never - Substance Use History Substance History: Past History - Immunization History Tetanus Immunization: >5 Years Hx Influenza Vaccine This Season: No Medications and Allergies Active Medications: Active Medications Acetaminophen (Tylenol) 650 mg PO Q4H PRN PRN Reason: Temp > 100.4 Calcium Carbonate (Tums Chew) 1,000 mg CHEW TID PRN PRN Reason: DYSPEPSIA Chlorhexidine Gluconate (Chlorhexidine 2% Cloth) 3 pack TOPICAL DAILY@0400 [facility] Stop: 07/08/18 03:59 Chlorhexidine Gluconate (Chlorhexidine 2% Cloth) 3 pack TOPICAL DAILY@0400 PRN PRN Reason: Extra cloth needed Stop: 07/08/18 03:59 Docusate Sodium (Colace) 100 mg PO BID PRN PRN Reason: CONSTIPATION Insulin Human Regular 100 unit (/ Sodium Chloride) 100 mls @ 6 mls/hr IV.CONT TITRATE PRN; Protocol PRN Reason: See protocol Last Titration: 07/02/18 12:50 Dose: 6 units/hr, 6 mls/hr Dextrose/Sodium Chloride (D5w/Normal Saline Inj) 1,000 mls @ 200 mls/hr IV.CONT .Q5H [facility] Last Admin: 07/02/18 13:45 Dose: Not Given Sodium Chloride (Ns Inj) 1,000 mls @ 100 mls/hr IV.CONT .Q10H [facility] Last Admin: 07/02/18 13:44 Dose: 100 mls/hr Potassium Chloride (Kcl 40 Meq Premix Inj) 40 meq in 100 mls @ 100 mls/hr IV.SIG Q1H PRN PRN Reason: for Initial K+ ONLY < 3.5 Potassium Chloride (Kcl 40 Meq Premix Inj) 40 meq in 100 mls @ 50 mls/hr IV.SIG Q2H PRN PRN Reason: for Subsequent K+ < 3.5 Potassium Chloride (Kcl 20 Meq Premix Inj) 20 meq in 100 mls @ 100 mls/hr IV.SIG Q1H PRN PRN Reason: for K+ 3.5 to 4.4 Potassium Chloride (Kcl 20 Meq Premix Inj) 20 meq in 100 mls @ 100 mls/hr IV.SIG Q1H PRN PRN Reason: for K+ 4.5 to 5 Potassium Chloride (Kcl 20 Meq Premix Inj) 20 meq in 100 mls @ 50 mls/hr IV.SIG Q2H PRN PRN Reason: for Initial K+ ONLY < 3.5 Potassium Chloride (Kcl 20 Meq Premix Inj) 20 meq in 100 mls @ 50 mls/hr IV.SIG Q2H PRN PRN Reason: for Subsequent K+ < 3.5 Potassium Chloride (Kcl 20 Meq Premix Inj) 20 meq in 100 mls @ 50 mls/hr IV.SIG Q2H PRN PRN Reason: for K+ 3.5 to 4.4 Sodium Phosphate 15 mmol/ (Sodium Chloride) 105 mls @ 25 mls/hr IV.SIG UNSCH PRN PRN Reason: for Phosphate Level < 1.0 Potassium Chloride (Kcl 20 Meq Premix Inj) 20 meq in 100 mls @ 50 mls/hr IV.SIG Q2H PRN PRN Reason: for K+ 4.5 to 5 Ondansetron HCl (Zofran Inj) 4 mg IV.PUSH Q6H PRN PRN Reason: NAUSEA Senna/Docusate Sodium (Montse-Colace) 1 tab PO BID PRN PRN Reason: CONSTIPATION Sodium Bicarbonate (Sodium Bicarbonate 8.4% Inj) 50 meq IV.PUSH UNSCH PRN PRN Reason: for pH 6.9 to 7.0 Sodium Bicarbonate (Sodium Bicarbonate 8.4% Inj) 100 meq IV.PUSH UNSCH PRN PRN Reason: for pH less than 6.9 Sodium Chloride (Ns Flush) 2 ml IV.FLUSH PRN PRN PRN Reason: FLUSH AFTER USING IV ACCESS Allergies Allergy/AdvReac Type Severity Reaction Status Date / Time No Known Allergies Allergy Verified 07/02/18 10:12 Home Medications Medication Instructions Recorded Confirmed Type gabapentin 06/29/18 History Exam Vital signs: Vital Signs 07/02/18 10:08 07/02/18 10:40 07/02/18 10:55 Temperature 97.5 F L Pulse Rate 102 H 84 Respiratory Rate 16 20 Blood Pressure 104/58 L 114/64 Pulse Oximetry 100 100 100 07/02/18 12:26 07/02/18 13:30 07/02/18 14:00 Temperature 97.9 F Pulse Rate 89 72 78 Respiratory Rate 18 16 22 Blood Pressure 116/65 105/62 102/59 L Pulse Oximetry 99 99 Intake & Output 07/01/18 07/02/18 07/02/18 18:59 06:59 18:59 Intake Total 3000 / 3000 Output Total 1500 / 1500 Balance 1500 / 1500 Weight 66.3 kg Intake: IV 3000 / 3000 NS Inj 1,000 ML @ Wide Open IV. 3000 / 3000 SIG BOLUS ONE Rx#:[id number] Output: Urine 1500 / 1500 Other: Date of Last Bowel Movement 07/02/18 Weight On Admission 66.3 kg Narrative: GENERAL: Well-developed, well-nourished in no distress he looks dehydrated SKIN: Warm and dry. HEAD: Atraumatic. Normocephalic. EYES: Pupils equal and round. No scleral icterus. No injection or drainage. ENT: No nasal bleeding or discharge. Mucous membranes pink and moist. NECK: Trachea midline. No JVD. CARDIOVASCULAR: Regular rate and rhythm. RESPIRATORY: No accessory muscle use. Clear to auscultation. Breath sounds equal bilaterally. GASTROINTESTINAL: Abdomen soft, non-tender, nondistended. MUSCULOSKELETAL: Extremities without clubbing, cyanosis, or edema. No obvious deformities. NEUROLOGICAL: Awake and alert. No obvious cranial nerve deficits. Motor grossly within normal limits. Five out of 5 muscle strength in the arms and legs. Normal speech. PSYCHIATRIC: Appropriate mood and affect; insight and judgment normal. Results - Labs CBC & Chem 7: 07/02/18 10:50 07/02/18 13:40 Labs: Laboratory Results - last 24 hr 07/02/18 07/02/18 07/02/18 10:15 10:45 10:50 CBC w Diff Auto diff final WBC 8.5 RBC 4.70 Hgb 13.8 Hct 42.1 MCV 89.5 D MCH 29.4 MCHC 32.8 RDW 13.0 Plt Count 429 MPV 8.1 Neut % (Auto) 72.3 H Lymph % (Auto) 18.3 Pershing % (Auto) 8.2 H Eos % (Auto) 0.6 Baso % (Auto) 0.6 Neut # (Auto) 6.0 Lymph # (Auto) 1.6 Pershing # (Auto) 0.7 Eos # (Auto) 0.1 Baso # (Auto) 0.1 WBC Differential . Differential Comment . Puncture Site Right radial Patient Temperature 98.6 O2 Saturation 95 ABG pH 7.25 L* ABG pCO2 28 L ABG pO2 105 ABG HCO3 12 L* ABG O2 Content 18.1 ABG Base Excess -14.2 L ABG Methemoglobin 1.5 Martin Test Present Hemoglobin 13.5 Carboxyhemoglobin 2.1 O2 Delivery Device Room air Inspired O2 21 Critical Value Yes Sodium Potassium Chloride Carbon Dioxide Anion Gap BUN Creatinine Estimated GFR POC Glucose Greater than 600 H* Random Glucose Calcium Phosphorus Magnesium Total Bilirubin AST ALT Alkaline Phosphatase Total Protein Albumin Beta-Hydroxybutyric Acd Ur Collection Type Urine Color Urine Clarity Urine pH Ur Specific [place] Urine Protein Urine Glucose (UA) Urine Ketones Urine Occult Blood Urine Nitrate Urine Bilirubin Urine Urobilinogen Ur Leukocyte Esterase Urine RBC Urine WBC Ur Squamous Epith Cells Micro UA Comment Ur Microscopic Review Urine Culture Comments 07/02/18 07/02/18 07/02/18 10:50 10:50 10:50 CBC w Diff WBC RBC Hgb Hct MCV MCH MCHC RDW Plt Count MPV Neut % (Auto) Lymph % (Auto) Pershing % (Auto) Eos % (Auto) Baso % (Auto) Neut # (Auto) Lymph # (Auto) Pershing # (Auto) Eos # (Auto) Baso # (Auto) WBC Differential Differential Comment Puncture Site Patient Temperature O2 Saturation ABG pH ABG pCO2 ABG pO2 ABG HCO3 ABG O2 Content ABG Base Excess ABG Methemoglobin Martin Test Hemoglobin Carboxyhemoglobin O2 Delivery Device Inspired O2 Critical Value Sodium 122 L* D Potassium 4.9 D Chloride 80 L D Carbon Dioxide 13.0 L D Anion Gap 29 H BUN 21 H Creatinine 1.40 H Estimated GFR 62 L POC Glucose Random Glucose 1032 H* D Calcium 10.6 H D Phosphorus 8.5 H Magnesium 2.9 H Total Bilirubin 1.0 AST 29 ALT 78 Alkaline Phosphatase 225 H Total Protein 8.9 H D Albumin 4.8 Beta-Hydroxybutyric Acd 8.46 H Ur Collection Type Clean catch Urine Color Yellow Urine Clarity Clear Urine pH 5.0 Ur Specific [place] Less/equal 1.005 Urine Protein Negative Urine Glucose (UA) 1000 or greater H Urine Ketones 40 H Urine Occult Blood Negative Urine Nitrate Negative Urine Bilirubin Negative Urine Urobilinogen 0.2 Ur Leukocyte Esterase Negative Urine RBC 0-3 Urine WBC 0-5 Ur Squamous Epith Cells 0-5 Micro UA Comment Culture not ind Ur Microscopic Review Microscopic reviewed Urine Culture Comments Culture not ind 07/02/18 07/02/18 07/02/18 11:23 11:55 13:08 CBC w Diff WBC RBC Hgb Hct MCV MCH MCHC RDW Plt Count MPV Neut % (Auto) Lymph % (Auto) Pershing % (Auto) Eos % (Auto) Baso % (Auto) Neut # (Auto) Lymph # (Auto) Pershing # (Auto) Eos # (Auto) Baso # (Auto) WBC Differential Differential Comment Puncture Site Patient Temperature O2 Saturation ABG pH ABG pCO2 ABG pO2 ABG HCO3 ABG O2 Content ABG Base Excess ABG Methemoglobin Martin Test Hemoglobin Carboxyhemoglobin O2 Delivery Device Inspired O2 Critical Value Sodium Potassium Chloride Carbon Dioxide Anion Gap BUN Creatinine Estimated GFR POC Glucose Greater than 600 H* Greater than 600 H* Greater than 600 H* Random Glucose Calcium Phosphorus Magnesium Total Bilirubin AST ALT Alkaline Phosphatase Total Protein Albumin Beta-Hydroxybutyric Acd Ur Collection Type Urine Color Urine Clarity Urine pH Ur Specific [place] Urine Protein Urine Glucose (UA) Urine Ketones Urine Occult Blood Urine Nitrate Urine Bilirubin Urine Urobilinogen Ur Leukocyte Esterase Urine RBC Urine WBC Ur Squamous Epith Cells Micro UA Comment Ur Microscopic Review Urine Culture Comments 07/02/18 07/02/18 07/02/18 13:40 13:41 14:21 CBC w Diff WBC RBC Hgb Hct MCV MCH MCHC RDW Plt Count MPV Neut % (Auto) Lymph % (Auto) Pershing % (Auto) Eos % (Auto) Baso % (Auto) Neut # (Auto) Lymph # (Auto) Pershing # (Auto) Eos # (Auto) Baso # (Auto) WBC Differential Differential Comment Puncture Site Patient Temperature O2 Saturation ABG pH ABG pCO2 ABG pO2 ABG HCO3 ABG O2 Content ABG Base Excess ABG Methemoglobin Martin Test Hemoglobin Carboxyhemoglobin O2 Delivery Device Inspired O2 Critical Value Sodium Potassium Chloride Carbon Dioxide Anion Gap BUN Creatinine Estimated GFR POC Glucose 543 H* 454 H* Random Glucose 552 H* D Calcium Phosphorus Magnesium Total Bilirubin AST ALT Alkaline Phosphatase Total Protein Albumin Beta-Hydroxybutyric Acd Ur Collection Type Urine Color Urine Clarity Urine pH Ur Specific [place] Urine Protein Urine Glucose (UA) Urine Ketones Urine Occult Blood Urine Nitrate Urine Bilirubin Urine Urobilinogen Ur Leukocyte Esterase Urine RBC Urine WBC Ur Squamous Epith Cells Micro UA Comment Ur Microscopic Review Urine Culture Comments 07/02/18 15:28 CBC w Diff WBC RBC Hgb Hct MCV MCH MCHC RDW Plt Count MPV Neut % (Auto) Lymph % (Auto) [place]hing % (Auto) Eos % (Auto) Baso % (Auto) Neut # (Auto) Lymph # (Auto) [place]hing # (Auto) Eos # (Auto) Baso # (Auto) WBC Differential Differential Comment Puncture Site Patient Temperature O2 Saturation ABG pH ABG pCO2 ABG pO2 ABG HCO3 ABG O2 Content ABG Base Excess ABG Methemoglobin Martin Test Hemoglobin Carboxyhemoglobin O2 Delivery Device Inspired O2 Critical Value Sodium Potassium Chloride Carbon Dioxide Anion Gap BUN Creatinine Estimated GFR POC Glucose 363 H Random Glucose Calcium Phosphorus Magnesium Total Bilirubin AST ALT Alkaline Phosphatase Total Protein Albumin Beta-Hydroxybutyric Acd Ur Collection Type Urine Color Urine Clarity Urine pH Ur Specific [place] Urine Protein Urine Glucose (UA) Urine Ketones Urine Occult Blood Urine Nitrate Urine Bilirubin Urine Urobilinogen Ur Leukocyte Esterase Urine RBC Urine WBC Ur Squamous Epith Cells Micro UA Comment Ur Microscopic Review Urine Culture Comments Caprini VTE Risk Assessment Caprini VTE Risk Assessment: No/Low Risk (score <= 1) Caprini Risk Assessment Model: Point Value = 1 Point Value = 2 Point Value = 3 Point Value = 5 Age 41-60 Minor surgery BMI > 25 kg/m2 Swollen legs Varicose veins or History of unexplained or recurrent spontaneous Oral contraceptives or hormone replacement Sepsis (< 1 month) Serious lung disease, including pneumonia (< 1 month) Abnormal pulmonary function Acute myocardial infarction Congestive heart failure (< 1 month) History of inflammatory bowel disease Medical patient at bed rest Age 61-74 Arthroscopic surgery Major open surgery (> 45 min) Laparoscopic surgery (> 45 min) Malignancy Confined to bed (> 72 hours) Immobilizing plaster cast Central venous access Age >= 75 History of VTE Family history of VTE Factor V Leiden Prothrombin [id number] Lupus anticoagulant Anticardiolipin antibodies Elevated serum homocysteine Heparin-induced thrombocytopenia Other congenital or acquired thrombophilia Stroke (< 1 month) Elective arthroplasty Hip, pelvis, or leg fracture Acute spinal cord injury (< 1 month) Prophylaxis Regimen: Total Risk Factor Score Risk Level Prophylaxis Regimen 0-1 Low Early ambulation 2 Moderate Order ONE of the following: *Sequential Compression Device (SCD) *Heparin 5000 units SQ BID 3-4 Higher Order ONE of the following medications: *Heparin 5000 units SQ TID *Enoxaparin/Lovenox 40 mg SQ daily (WT < 150 kg, CrCl > 30 mL/min) *Enoxaparin/Lovenox 30 mg SQ daily (WT < 150 kg, CrCl > 10-29 mL/min) *Enoxaparin/Lovenox 30 mg SQ BID (WT < 150 kg, CrCl > 30 mL/min) AND/OR *Sequential Compression Device (SCD) 5 or more Highest Order ONE of the following medications: *Heparin 5000 units SQ TID (Preferred with Epidurals) *Enoxaparin/Lovenox 40 mg SQ daily (WT < 150 kg, CrCl > 30 mL/min) *Enoxaparin/Lovenox 30 mg SQ daily (WT < 150 kg, CrCl > 10-29 mL/min) *Enoxaparin/Lovenox 30 mg SQ BID (WT < 150 kg, CrCl > 30 mL/min) AND *Sequential Compression Device (SCD) Assessment and Plan - Plan This is a 22-year-old male with a history of insulin-dependent diabetes mellitus with neuropathy recently discharged after being treated for DKA. Patient was unable to pickling solution maker his insulin prescription when he was discharged 3 days ago secondary to lack of transportation. He has been feeling terrible and developed nausea and vomiting today. No fever, chills, blurred vision, dizziness, cough, abdominal pain, UTI symptoms, polyuria, polydipsia and polyphagia. Workup shows he is back in DKA with a pH of 7.25 beta hydroxybutyrate of 8.469, Anion gap 29. DKA secondary to noncompliance. Patient has been extensively counseled. Patient will be admitted to ICU and continue aggressive fluid hydration and insulin drip. Diabetic education. Restart 7030 20 units twice a day when he is no longer in DKA. Acute kidney injury with hyponatremia secondary to above. Nonoliguric. As previously mentioned continue IV hydration. Avoid nephrotoxins DVT prophylaxis with SCD Discharge Planning: Discharge when clinically improved
[2018-07-02 17:42] LABS: Anion Gap 8 meq/L (5-15); Blood Urea Nitrogen 15 mg/dL (7-18); Carbon Dioxide 22.6 meq/L (21.0-32.0); Chloride 105 meq/L (98-107); Glomerular Filtration Rate Greater Than 89 mL/min (>89); Glucose,Random 188 mg/dL (74-106); Magnesium 2.2 mg/dL (1.5-2.5); Phosphorus 3.6 mg/dL (2.5-4.9); Potassium 3.9 meq/L (3.5-5.1); Sodium 136 meq/L (136-145)
[2018-07-02] MEDS ORDERED: DC Insulin drip 2 hrs post basal insulin dose OTHER ONE (18:16)
[2018-07-02] MEDS ORDERED: Dextrose 50% in Water 50 ML Vial IV.PUSH PRN (18:16)
[2018-07-02] MEDS ORDERED: DC previous DKA orders (HMC 1917) OTHER ONE (18:16)
[2018-07-02] MEDS ORDERED: Insulin Detemir Inj 1,000 UNIT/10 ML Vial SQ ONE (18:45)
--- NOTE | 2018-07-02 20:03 | ECG ---
Date Performed: 07/02/2018 Time Performed: 10:52:01 PTAGE: 22 years EKG: Sinus rhythm RIGHT ATRIAL ENLARGEMENT ABNORMAL ECG PREVIOUS TRACING : 06/29/2018 11.12 Since the previous tracing, no significant change noted DOCTOR: Dean Shaikh Interpretating Date/Time 07/02/2018 20:01:59
[2018-07-02] MEDS: Insulin NovoLOG Aspart Correctional Sugar Inj SQ SCH (21:00)
[2018-07-03] MEDS ORDERED: Chlorhexidine Gluconate 2% 1 Pack (2 Cloths) TOPICAL PRN (04:00)
[2018-07-03] MEDS ORDERED: Chlorhexidine Gluconate 2% 1 Pack (2 Cloths) TOPICAL SCH (04:00)
[2018-07-03] MEDS: Insulin NovoLOG Aspart Correctional Sugar Inj SQ SCH ×3 (04:07→12:30)
[2018-07-03 05:13] LABS: Chloride 98 meq/L (98-107); Potassium 3.9 meq/L (3.5-5.1); Sodium 133 meq/L (136-145)
[2018-07-03 05:51] LABS: Anion Gap 10 meq/L (5-15); Beta Hydroxybutyric Acid 0.11 mmol/L (0.00-0.39); Blood Urea Nitrogen 13 mg/dL (7-18); Calcium 8.1 mg/dL (8.5-10.1); Carbon Dioxide 25.1 meq/L (21.0-32.0); Glomerular Filtration Rate Greater Than 89 mL/min (>89); Glucose,Random 233 mg/dL (74-106); Magnesium 1.7 mg/dL (1.5-2.5); Phosphorus 2.1 mg/dL (2.5-4.9)
[2018-07-03] MEDS ORDERED: Insulin Aspart Prot 70/30 1,000 UNITS/10 ML Vial SQ SCH (08:00)
[2018-07-03 08:55] VITALS: TEMP 97.1
[2018-07-03] MEDS ORDERED: Potassium Phosphate 500 MG Soluble Tablet PO SCH (10:30)
[2018-07-03 12:32] VITALS: BP 128/72; PULSE 86; RESP 21; O2SAT 97
--- NOTE | 2018-07-03 14:31 | P.PN ---
Subjective Interval history: Follow-up DKA. He has been off insulin drip since yesterday tolerating 7030. Claims he is on 45 units twice a day because he eats junk foods. He is homeless. Patient seen with nurse informatics educator, reiterated compliance with medical therapy including diet Physical Exam Vital signs: Vital Signs 07/02/18 15:00 07/02/18 16:00 07/02/18 17:00 Temperature 98.2 F Pulse Rate 92 H 92 H 86 Respiratory Rate 22 21 20 Blood Pressure 100/49 L 99/49 L 99/50 L Pulse Oximetry 95 98 95 07/02/18 19:00 07/02/18 20:00 07/02/18 20:49 Temperature 97.6 F Pulse Rate 84 84 79 Respiratory Rate 20 Blood Pressure 106/57 L Pulse Oximetry 99 07/03/18 00:00 07/03/18 04:00 07/03/18 08:00 Temperature 97.7 F 98.3 F 97.1 F L Pulse Rate 82 64 78 Respiratory Rate 18 22 Blood Pressure 102/54 L 102/57 L 128/65 Pulse Oximetry 99 100 07/03/18 09:00 07/03/18 10:00 07/03/18 11:00 Temperature Pulse Rate 82 74 76 Respiratory Rate 17 14 19 Blood Pressure Pulse Oximetry 97 07/03/18 12:00 Temperature Pulse Rate 86 Respiratory Rate 21 Blood Pressure 128/72 Pulse Oximetry Intake & Output 07/02/18 07/03/18 07/03/18 18:59 06:59 18:59 Intake Total 4100 / 4100 2217.5 / 2217.5 Output Total 2175 / 2175 1700 / 1700 Balance 1925 / 1925 517.5 / 517.5 Weight 66.3 kg 66.3 kg Intake: IV 4100 / 4100 1017.5 / 1017.5 KCl 20 mEq Premix Inj 20 meq In 100 / 100 100 ml @ 0 mls/hr IV.SIG .STK- MED ONE Rx#:[id number] NS Inj 1,000 ML @ Wide Open IV. 3000 / 3000 SIG BOLUS ONE Rx#:[id number] Oral 1200 / 1200 Output: Urine 2175 / 2175 1700 / 1700 Other: Date of Last Bowel Movement 07/02/18 # Bowel Movements 0 Weight On Admission 66.3 kg Narrative: GENERAL: Well-developed, well-nourished in no distress SKIN: Warm and dry. CARDIOVASCULAR: Regular rate and rhythm. RESPIRATORY: No accessory muscle use. Clear to auscultation. Breath sounds equal bilaterally. GASTROINTESTINAL: Abdomen soft, non-tender, nondistended. MUSCULOSKELETAL: Extremities without clubbing, cyanosis, or edema. No obvious deformities. NEUROLOGICAL: Awake and alert. No obvious cranial nerve deficits. Motor grossly within normal limits. Five out of 5 muscle strength in the arms and legs. Normal speech. Results - Labs CBC & Chem 7: 07/02/18 10:50 07/03/18 04:40 Laboratory Results - last 24 hr 07/02/18 07/02/18 07/02/18 15:28 16:44 17:20 Sodium 136 D Potassium 3.9 D Chloride 105 D Carbon Dioxide 22.6 D Anion Gap 8 BUN 15 Creatinine 0.99 Estimated GFR Greater than 89 POC Glucose 363 H 226 H Random Glucose 188 H D Calcium 9.0 D Phosphorus 3.6 D Magnesium 2.2 D Beta-Hydroxybutyric Acd Nasal Screen MRSA (PCR) 07/02/18 07/02/18 07/02/18 17:36 18:42 20:57 Sodium Potassium Chloride Carbon Dioxide Anion Gap BUN Creatinine Estimated GFR POC Glucose 158 H 184 H 124 H Random Glucose Calcium Phosphorus Magnesium Beta-Hydroxybutyric Acd Nasal Screen MRSA (PCR) 07/03/18 07/03/18 07/03/18 03:03 04:23 04:40 Sodium 133 L Potassium 3.9 Chloride 98 Carbon Dioxide 25.1 Anion Gap 10 BUN 13 Creatinine 0.89 Estimated GFR Greater than 89 POC Glucose 125 H Random Glucose 233 H Calcium 8.1 L D Phosphorus 2.1 L D Magnesium 1.7 Beta-Hydroxybutyric Acd 0.11 D Nasal Screen MRSA (PCR) Not detected 07/03/18 07/03/18 08:45 11:49 Sodium Potassium Chloride Carbon Dioxide Anion Gap BUN Creatinine Estimated GFR POC Glucose 278 H 166 H Random Glucose Calcium Phosphorus Magnesium Beta-Hydroxybutyric Acd Nasal Screen MRSA (PCR) - Procedures none Assessment and Plan - Plan This is a 22-year-old male with a history of insulin-dependent diabetes mellitus with neuropathy recently discharged after being treated for DKA. Patient was unable to filler picker his insulin prescription when he was discharged 3 days ago secondary to lack of transportation. He has been feeling terrible and developed nausea and vomiting today. No fever, chills, blurred vision, dizziness, cough, abdominal pain, UTI symptoms, polyuria, polydipsia and polyphagia. Workup shows he is back in DKA with a pH of 7.25 beta hydroxybutyrate of 8.469, Anion gap 29. DKA secondary to noncompliance. Patient has been extensively counseled. This is resolved status post insulin drip. Continue 7030 insulin with sliding scale. Diabetic education. Acute kidney injury with hyponatremia secondary to above. Nonoliguric. This is resolved. Avoid nephrotoxins DVT prophylaxis with SCD Discharge Planning: Discharge patient to home. He is significantly improved earlier than anticipated Condition on discharge: Improved Regular Diet as tolerated Ad Kenzie activity no driving Rx written: insulin Follow-up with primary care physician (meli ramos)
== END 2018-07-03 17:45 | disposition home or self-care (01) ==
LOC: PHED 10:05 → PHEDA 12:09 → PHICU 12:40
PROVIDERS: ADMIT Internal Medicine; ATTEND Internal Medicine

== ENCOUNTER 2018-08-11 19:11 | Inpatient (IN) ==
[2018-08-11] MEDS ORDERED: Dextrose 50% in Water 50 ML Vial IV.PUSH PRN (19:32)
[2018-08-11] MEDS ORDERED: Sod Chloride 0.9% Inj 1,000 ML IV.SIG ONE ×2 (19:32→20:32)
[2018-08-11 19:45] LABS: VBG Base Excess -21.4 mmol/L (-2-2); VBG Blood Gas Oxygen Content 17.5 Vol % (9.0-17.0); VBG PCO2 20 mmHG (44-48); VBG PH 7.12 (7.360-7.400); VBG PO2 56 mmHG (35-40)
--- NOTE | 2018-08-11 19:58 | XR ---
EXAM DATE: 08/11/2018 7:54 PM EDT AGE/SEX: 22 years / Male INDICATIONS: Chest pain and shortness of breath. CLINICAL DATA: This is the patient's initial encounter. Patient reports that signs and symptoms have been present for 1 day and indicates a pain score of 8/10. MEDICAL/SURGICAL HISTORY: None. None. COMPARISON: HPO, CHEST 1V SINGLE AP, 06/29/2018. . FINDINGS: A single AP view of the chest demonstrates the lungs to be symmetrically aerated without evidence of mass, infiltrate or effusion. The cardiomediastinal contours are unremarkable. Osseous structures a re intact. CONCLUSION: 1. No acute cardiopulmonary disease. Electronically signed by: Bennie Luo MD 08/11/2018 7:57 PM EDT
[2018-08-11] MEDS ORDERED: Insulin Human-R 100 UNIT/100ML 100 UNIT/100 ML BAG IV.CONT ONE (20:02)
--- NOTE | 2018-08-11 20:08 | ED ---
HPI General Chief complaint: Diabetic Stated complaint: blood sugar Time Seen by Provider: 08/11/18 19:23 Source: patient Mode of arrival: ambulatory Limitations: no limitations History of Present Illness HPI narrative: Patient is a 22-year-old male presenting to the [facility] department for evaluation of nausea, weakness and elevated blood glucose readings. Patient states he has been out of his insulin for 2 days. He reports a dull frontal headache, nausea, weakness. He states his symptoms got worse this afternoon at noon, he vomited once while at work. He does not have a primary doctor, he gets his insulin from [id number]. He is currently taking 70/30 twice daily. Patient has type 1 diabetes. He denies any chest pain, fevers, chills, shortness of breath. Symptom onset was gradual , symptoms are significant. Symptoms are exacerbated due to noncompliance with insulin. Patient denies any illicit drug use, he states that he is in a sober living house. MD complaint: Hyperglycemia, weakness Onset (ago): hour(s) Severity: moderate and severe Severity scale (1-10): 8 Associated symptoms: Reports headaches, malaise, nausea/vomiting and weakness Treatments prior to arrival: Reports none Related Data Previous Rx's Medication Instructions Recorded Novolin 70/30 U-100 Insulin 45 units SUB-Q BID #1 vial 06/30/18 Allergies Allergy/AdvReac Type Severity Reaction Status Date / Time No Known Allergies Allergy Verified 08/11/18 19:39 Review of Systems ROS: all other systems reviewed are negative [facility] Medical History Medical History Diabetes (Acute) Surgical History Surgical History No history of previous surgery (Acute) Family History Family History Other Family history of diabetes mellitus Social History Social History Substance History: Past History Second Hand Smoke Exposure: Yes Smoking Status: Current every day smoker Tobacco Type: Cigarettes How Often Do You Have a Drink Containing Alcohol: Never Recent Travel in [facility] within the Last 8 Weeks: No Recent Out of Country Travel within the Last 8 Weeks: No Immunization History Tetanus Immunization: >5 Years Exam Narrative Exam Narrative: GENERAL: Well-developed, well-nourished, alert acutely ill- appearing male. Presenting in no acute distress. SKIN: Focused skin assessment warm/dry. HEAD: Atraumatic. Normocephalic. EYES: Pupils equal and round. No scleral icterus. No injection or drainage. ENT: No nasal bleeding or discharge. Mucous membranes pink and moist. NECK: Trachea midline. No JVD. CARDIOVASCULAR: Regular rate and rhythm. No murmur appreciated. RESPIRATORY: No accessory muscle use. Clear to auscultation. Breath sounds equal bilaterally. GASTROINTESTINAL: Abdomen soft, non-tender, nondistended. Hepatic and splenic margins not palpable. No rebound, no guarding. MUSCULOSKELETAL: No obvious deformities. No clubbing. No cyanosis. No edema. NEUROLOGICAL: Awake and alert. No obvious cranial nerve deficits. Motor grossly within normal limits. Normal speech. PSYCHIATRIC: Appropriate mood and affect; insight and judgment normal. Course Initial Documented Vital Signs Pulse Rate 112 H 08/11/18 19:18 Respiratory Rate 23 08/11/18 19:18 Blood Pressure 126/74 08/11/18 19:18 Pulse Oximetry 98 08/11/18 19:18 Last Documented Vital Signs Temperature 98.4 F 08/13/18 12:00 Pulse Rate 76 08/13/18 12:00 Respiratory Rate 14 08/13/18 12:00 Blood Pressure 105/65 08/13/18 12:00 Pulse Oximetry 98 08/13/18 12:00 Medical Decision Making CRISSY Attestation CRISSY supervised visit: Yes Attestation: I, Dr. Simon, have reviewed the advance practice practitioner's documentation and am in agreement, met with the patient face to face, made the diagnosis, and the medical decision making was done by me. *My assessment and Findings: This is a diabetic who has been out of his insulin for the last couple of days. He comes in with weakness and nausea. His laboratory evaluation is consistent with DKA. An insulin drip has been ordered. He is receiving a fluid bolus. Please see Angela Parmar NP's note for a more detailed H&P, final diagnosis and disposition MDM Narrative Medical decision making narrative: Patient presented for evaluation of elevated blood leukosis readings as well as weakness. Patient's vital signs are stable, VBG revealed a pH level 7.123. Patient has 2 L of IV fluids ordered, discussed with my attending physician. Patient will be placed on an insulin drip per algorithm 1. Beta hydroxybutyrate is 9.96, CBC with a white blood cell count of 12, sodium 127, anion gap 24. Patient was given additional liter of IV fluids. Discussed with Dr. Gonzalez who accepted admission. Patient was placed in the ICU. Patient's vital signs have been stable. Patient did report that he continued to feel nauseated, he was given Phenergan IM. Urine drug screen is negative. Medical Screen Exam Complete: Yes Emergency Medical Condition: Yes Differential Diagnosis Differential Diagnosis: Metabolic abnormality versus cardiac arrhythmia versus hyperosmolality versus hyperglycemia versus UTI versus other Medical Records Medical records reviewed: Yes I reviewed the patient's medical records. Lab Data Lab results reviewed: Yes I reviewed the patient's lab results. Result diagrams: 08/13/18 05:23 08/13/18 05:23 Lab Results 08/11/18 08/11/18 08/11/18 Range/Units 19:26 19:40 19:40 WBC 12.0 H (4.0-11.0) th/mm3 RBC 5.28 (4.50-5.90) mil/mm3 Hgb 15.3 (13.0-17.0) gm/dL Hct 46.9 (39.0-51.0) % MCV 88.8 (80.0-100.0) fL MCH 29.1 (27.0-34.0) pg MCHC 32.7 (32.0-36.0) % RDW 14.0 (11.6-17.2) % Plt Count 322 (150-450) th/mm3 MPV 8.4 (7.0-11.0) fL Prelim Diff (Auto) Slide review pending Neut % (Auto) 65.1 (16.0-70.0) % Lymph % (Auto) 26.0 (9.0-44.0) % [place] % (Auto) 8.4 H (0.0-8.0) % Eos % (Auto) 0.2 (0.0-4.0) % Baso % (Auto) 0.3 (0.0-2.0) % Neut # (Auto) 7.8 H (1.8-7.7) th/mm3 Lymph # (Auto) 3.1 (1.0-4.8) th/mm3 [place] # (Auto) 1.0 H (0.0-0.9) th/mm3 Eos # (Auto) 0.0 (0.0-0.4) th/mm3 Baso # (Auto) 0.0 (0.0-0.2) th/mm3 WBC Differential Manual diff final Seg Neuts % (Manual) 54 (16-70) % Band Neuts % (Manual) 2 (0-6) % Lymphocytes % (Manual) 36 (9-44) % Monocytes % (Manual) 8 (0-8) % Abs Neuts (Manual) 6.7 (1.8-7.7) th/mm3 Differential Comment . Platelet Estimate Normal (Normal) Platelet Morphology Normal (Normal) RBC Morphology Normal (Normal) Puncture Site Iv Patient Temperature 98.6 O2 Saturation (90-100) % ABG pH (7.380-7.420) ABG pCO2 (38-42) mmHg ABG pO2 (61-120) mmHg ABG HCO3 (22-26) mmol/L ABG O2 Content (12.0-20.0) Vol % ABG Base Excess (-2-2) mmol/L ABG Methemoglobin (0-2) % Martin Test VBG pH 7.12 L* (7.360-7.400) VBG pCO2 20 L (44-48) mmHG VBG pO2 56 H (35-40) mmHG VBG HCO3 6 L* (22-26) mmol/L VBG O2 Saturation 78 H (70-76) % VBG O2 Content 17.5 H (9.0-17.0) Vol % VBG Base Excess -21.4 L (-2-2) mmol/L VBG Carboxyhemoglobin 2.7 (0-4) % VBG Methemoglobin 1.1 (0-2) % Hemoglobin 16.1 H (12.0-16.0) G/DL Carboxyhemoglobin (0-4) % Inspired O2 21 % Critical Value Yes Sodium 127 L (136-145) meq/L Potassium 5.1 (3.5-5.1) meq/L Chloride 96 L (98-107) meq/L Carbon Dioxide 7.4 L (21.0-32.0) meq/L Anion Gap 24 H (5-15) meq/L BUN 19 H (7-18) mg/dL Creatinine 1.07 (0.60-1.30) mg/dL Estimated GFR 85 L (>89) mL/min POC Glucose (68-110) mg/dl Random Glucose 442 H (74-106) mg/dL Lactic Acid (0.4-2.0) mmol/L Calcium 9.3 (8.5-10.1) mg/dL Prot Corrected Calcium Phosphorus (2.5-4.9) mg/dL Magnesium 2.3 (1.5-2.5) mg/dL Total Bilirubin 0.4 (0.2-1.0) mg/dL AST 20 (15-37) U/L ALT 36 (12-78) U/L Alkaline Phosphatase 138 H (45-117) U/L Total Creatine Kinase 45 (39-308) U/L Troponin I Less than 0.02 L (0.02-0.05) ng/mL Total Protein 9.4 H (6.4-8.2) g/dL Albumin 4.9 (3.4-5.0) g/dL Lipase 108 (73-393) U/L Beta-Hydroxybutyric Acd 9.96 H (0.00-0.39) mmol/L Urine Color (Yellw/Straw) Urine Clarity (Clear) Urine pH (5.0-8.5) Ur Specific [place] (1.002-1.035) Urine Protein (Neg-Trace) mg/dL Urine Glucose (UA) (Negative) mg/dL Urine Ketones (Negative) mg/dL Urine Occult Blood (Negative) Urine Nitrate (Negative) Urine Bilirubin (Negative) Urine Urobilinogen (Less than 2) mg/dL Ur Leukocyte Esterase (Negative) Urine WBC (0-5) /hpf Urine Mucus (Occasional) /lpf Micro UA Comment Ur Microscopic Review Urine Culture Comments Nasal Screen MRSA (PCR) (Negative) Urine Opiates Screen (Neg) Ur Barbiturates Screen (Neg) Ur Amphetamines Screen (Neg) U Benzodiazepines Scrn (Neg) Urine Cocaine Screen (Neg) U Cannabinoids Screen (Neg) 08/11/18 08/11/18 08/11/18 Range/Units 19:40 19:40 19:40 WBC (4.0-11.0) th/mm3 RBC (4.50-5.90) mil/mm3 Hgb (13.0-17.0) gm/dL Hct (39.0-51.0) % MCV (80.0-100.0) fL MCH (27.0-34.0) pg MCHC (32.0-36.0) % RDW (11.6-17.2) % Plt Count (150-450) th/mm3 MPV (7.0-11.0) fL Prelim Diff (Auto) Neut % (Auto) (16.0-70.0) % Lymph % (Auto) (9.0-44.0) % [place] % (Auto) (0.0-8.0) % Eos % (Auto) (0.0-4.0) % Baso % (Auto) (0.0-2.0) % Neut # (Auto) (1.8-7.7) th/mm3 Lymph # (Auto) (1.0-4.8) th/mm3 [place] # (Auto) (0.0-0.9) th/mm3 Eos # (Auto) (0.0-0.4) th/mm3 Baso # (Auto) (0.0-0.2) th/mm3 WBC Differential Seg Neuts % (Manual) (16-70) % Band Neuts % (Manual) (0-6) % Lymphocytes % (Manual) (9-44) % Monocytes % (Manual) (0-8) % Abs Neuts (Manual) (1.8-7.7) th/mm3 Differential Comment Platelet Estimate (Normal) Platelet Morphology (Normal) RBC Morphology (Normal) Puncture Site Patient Temperature O2 Saturation (90-100) % ABG pH (7.380-7.420) ABG pCO2 (38-42) mmHg ABG pO2 (61-120) mmHg ABG HCO3 (22-26) mmol/L ABG O2 Content (12.0-20.0) Vol % ABG Base Excess (-2-2) mmol/L ABG Methemoglobin (0-2) % Martin Test VBG pH (7.360-7.400) VBG pCO2 (44-48) mmHG VBG pO2 (35-40) mmHG VBG HCO3 (22-26) mmol/L VBG O2 Saturation (70-76) % VBG O2 Content (9.0-17.0) Vol % VBG Base Excess (-2-2) mmol/L VBG Carboxyhemoglobin (0-4) % VBG Methemoglobin (0-2) % Hemoglobin (12.0-16.0) G/DL Carboxyhemoglobin (0-4) % Inspired O2 % Critical Value Sodium (136-145) meq/L Potassium (3.5-5.1) meq/L Chloride (98-107) meq/L Carbon Dioxide (21.0-32.0) meq/L Anion Gap (5-15) meq/L BUN (7-18) mg/dL Creatinine (0.60-1.30) mg/dL Estimated GFR (>89) mL/min POC Glucose (68-110) mg/dl Random Glucose (74-106) mg/dL Lactic Acid 1.0 (0.4-2.0) mmol/L Calcium (8.5-10.1) mg/dL Prot Corrected Calcium Phosphorus (2.5-4.9) mg/dL Magnesium (1.5-2.5) mg/dL Total Bilirubin (0.2-1.0) mg/dL AST (15-37) U/L ALT (12-78) U/L Alkaline Phosphatase (45-117) U/L Total Creatine Kinase (39-308) U/L Troponin I (0.02-0.05) ng/mL Total Protein (6.4-8.2) g/dL Albumin (3.4-5.0) g/dL Lipase (73-393) U/L Beta-Hydroxybutyric Acd (0.00-0.39) mmol/L Urine Color Straw (Yellw/Straw) Urine Clarity Clear (Clear) Urine pH 5.0 (5.0-8.5) Ur Specific [place] 1.025 (1.002-1.035) Urine Protein 100 H (Neg-Trace) mg/dL Urine Glucose (UA) 500 or greater (Negative) mg/dL Urine Ketones 80 or greater H (Negative) mg/dL Urine Occult Blood Negative (Negative) Urine Nitrate Negative (Negative) Urine Bilirubin Negative (Negative) Urine Urobilinogen Less than 2 (Less than 2) mg/dL Ur Leukocyte Esterase Negative (Negative) Urine WBC Less than 1 (0-5) /hpf Urine Mucus Few H (Occasional) /lpf Micro UA Comment Culture not ind Ur Microscopic Review Not Reportable Urine Culture Comments Culture not ind Nasal Screen MRSA (PCR) (Negative) Urine Opiates Screen Neg (Neg) Ur Barbiturates Screen Neg (Neg) Ur Amphetamines Screen Neg (Neg) U Benzodiazepines Scrn Neg (Neg) Urine Cocaine Screen Neg (Neg) U Cannabinoids Screen Neg (Neg) 08/11/18 08/11/18 08/11/18 Range/Units 19:40 22:45 23:10 WBC (4.0-11.0) th/mm3 RBC (4.50-5.90) mil/mm3 Hgb (13.0-17.0) gm/dL Hct (39.0-51.0) % MCV (80.0-100.0) fL MCH (27.0-34.0) pg MCHC (32.0-36.0) % RDW (11.6-17.2) % Plt Count (150-450) th/mm3 MPV (7.0-11.0) fL Prelim Diff (Auto) Neut % (Auto) (16.0-70.0) % Lymph % (Auto) (9.0-44.0) % [place] % (Auto) (0.0-8.0) % Eos % (Auto) (0.0-4.0) % Baso % (Auto) (0.0-2.0) % Neut # (Auto) (1.8-7.7) th/mm3 Lymph # (Auto) (1.0-4.8) th/mm3 [place] # (Auto) (0.0-0.9) th/mm3 Eos # (Auto) (0.0-0.4) th/mm3 Baso # (Auto) (0.0-0.2) th/mm3 WBC Differential Seg Neuts % (Manual) (16-70) % Band Neuts % (Manual) (0-6) % Lymphocytes % (Manual) (9-44) % Monocytes % (Manual) (0-8) % Abs Neuts (Manual) (1.8-7.7) th/mm3 Differential Comment Platelet Estimate (Normal) Platelet Morphology (Normal) RBC Morphology (Normal) Puncture Site Left radial Patient Temperature 98.6 O2 Saturation 95 (90-100) % ABG pH 7.11 L* (7.380-7.420) ABG pCO2 13 L* (38-42) mmHg ABG pO2 132 H (61-120) mmHg ABG HCO3 4 L* (22-26) mmol/L ABG O2 Content 19.3 (12.0-20.0) Vol % ABG Base Excess -24.1 L (-2-2) mmol/L ABG Methemoglobin 0.9 (0-2) % Martin Test Present VBG pH (7.360-7.400) VBG pCO2 (44-48) mmHG VBG pO2 (35-40) mmHG VBG HCO3 (22-26) mmol/L VBG O2 Saturation (70-76) % VBG O2 Content (9.0-17.0) Vol % VBG Base Excess (-2-2) mmol/L VBG Carboxyhemoglobin (0-4) % VBG Methemoglobin (0-2) % Hemoglobin 14.3 (12.0-16.0) G/DL Carboxyhemoglobin 1.8 (0-4) % Inspired O2 21 % Critical Value Yes Sodium Cancelled (136-145) meq/L Potassium Cancelled (3.5-5.1) meq/L Chloride Cancelled (98-107) meq/L Carbon Dioxide Cancelled (21.0-32.0) meq/L Anion Gap Cancelled (5-15) meq/L BUN Cancelled (7-18) mg/dL Creatinine Cancelled (0.60-1.30) mg/dL Estimated GFR Cancelled (>89) mL/min POC Glucose 244 H (68-110) mg/dl Random Glucose Cancelled (74-106) mg/dL Lactic Acid (0.4-2.0) mmol/L Calcium Cancelled (8.5-10.1) mg/dL Prot Corrected Calcium Cancelled Phosphorus 5.3 H (2.5-4.9) mg/dL Magnesium (1.5-2.5) mg/dL Total Bilirubin Cancelled (0.2-1.0) mg/dL AST Cancelled (15-37) U/L ALT Cancelled (12-78) U/L Alkaline Phosphatase Cancelled (45-117) U/L Total Creatine Kinase (39-308) U/L Troponin I (0.02-0.05) ng/mL Total Protein Cancelled (6.4-8.2) g/dL Albumin Cancelled (3.4-5.0) g/dL Lipase (73-393) U/L Beta-Hydroxybutyric Acd (0.00-0.39) mmol/L Urine Color (Yellw/Straw) Urine Clarity (Clear) Urine pH (5.0-8.5) Ur Specific [place] (1.002-1.035) Urine Protein (Neg-Trace) mg/dL Urine Glucose (UA) (Negative) mg/dL Urine Ketones (Negative) mg/dL Urine Occult Blood (Negative) Urine Nitrate (Negative) Urine Bilirubin (Negative) Urine Urobilinogen (Less than 2) mg/dL Ur Leukocyte Esterase (Negative) Urine WBC (0-5) /hpf Urine Mucus (Occasional) /lpf Micro UA Comment Ur Microscopic Review Urine Culture Comments Nasal Screen MRSA (PCR) (Negative) Urine Opiates Screen (Neg) Ur Barbiturates Screen (Neg) Ur Amphetamines Screen (Neg) U Benzodiazepines Scrn (Neg) Urine Cocaine Screen (Neg) U Cannabinoids Screen (Neg) 08/12/18 08/12/18 08/12/18 Range/Units 00:05 00:16 01:16 WBC (4.0-11.0) th/mm3 RBC (4.50-5.90) mil/mm3 Hgb (13.0-17.0) gm/dL Hct (39.0-51.0) % MCV (80.0-100.0) fL MCH (27.0-34.0) pg MCHC (32.0-36.0) % RDW (11.6-17.2) % Plt Count (150-450) th/mm3 MPV (7.0-11.0) fL Prelim Diff (Auto) Neut % (Auto) (16.0-70.0) % Lymph % (Auto) (9.0-44.0) % [place] % (Auto) (0.0-8.0) % Eos % (Auto) (0.0-4.0) % Baso % (Auto) (0.0-2.0) % Neut # (Auto) (1.8-7.7) th/mm3 Lymph # (Auto) (1.0-4.8) th/mm3 [place] # (Auto) (0.0-0.9) th/mm3 Eos # (Auto) (0.0-0.4) th/mm3 Baso # (Auto) (0.0-0.2) th/mm3 WBC Differential Seg Neuts % (Manual) (16-70) % Band Neuts % (Manual) (0-6) % Lymphocytes % (Manual) (9-44) % Monocytes % (Manual) (0-8) % Abs Neuts (Manual) (1.8-7.7) th/mm3 Differential Comment Platelet Estimate (Normal) Platelet Morphology (Normal) RBC Morphology (Normal) Puncture Site Patient Temperature O2 Saturation (90-100) % ABG pH (7.380-7.420) ABG pCO2 (38-42) mmHg ABG pO2 (61-120) mmHg ABG HCO3 (22-26) mmol/L ABG O2 Content (12.0-20.0) Vol % ABG Base Excess (-2-2) mmol/L ABG Methemoglobin (0-2) % Martin Test VBG pH (7.360-7.400) VBG pCO2 (44-48) mmHG VBG pO2 (35-40) mmHG VBG HCO3 (22-26) mmol/L VBG O2 Saturation (70-76) % VBG O2 Content (9.0-17.0) Vol % VBG Base Excess (-2-2) mmol/L VBG Carboxyhemoglobin (0-4) % VBG Methemoglobin (0-2) % Hemoglobin (12.0-16.0) G/DL Carboxyhemoglobin (0-4) % Inspired O2 % Critical Value Sodium (136-145) meq/L Potassium (3.5-5.1) meq/L Chloride (98-107) meq/L Carbon Dioxide (21.0-32.0) meq/L Anion Gap (5-15) meq/L BUN (7-18) mg/dL Creatinine (0.60-1.30) mg/dL Estimated GFR (>89) mL/min POC Glucose 190 H 172 H (68-110) mg/dl Random Glucose (74-106) mg/dL Lactic Acid (0.4-2.0) mmol/L Calcium (8.5-10.1) mg/dL Prot Corrected Calcium Phosphorus (2.5-4.9) mg/dL Magnesium (1.5-2.5) mg/dL Total Bilirubin (0.2-1.0) mg/dL AST (15-37) U/L ALT (12-78) U/L Alkaline Phosphatase (45-117) U/L Total Creatine Kinase (39-308) U/L Troponin I (0.02-0.05) ng/mL Total Protein (6.4-8.2) g/dL Albumin (3.4-5.0) g/dL Lipase (73-393) U/L Beta-Hydroxybutyric Acd (0.00-0.39) mmol/L Urine Color (Yellw/Straw) Urine Clarity (Clear) Urine pH (5.0-8.5) Ur Specific [place] (1.002-1.035) Urine Protein (Neg-Trace) mg/dL Urine Glucose (UA) (Negative) mg/dL Urine Ketones (Negative) mg/dL Urine Occult Blood (Negative) Urine Nitrate (Negative) Urine Bilirubin (Negative) Urine Urobilinogen (Less than 2) mg/dL Ur Leukocyte Esterase (Negative) Urine WBC (0-5) /hpf Urine Mucus (Occasional) /lpf Micro UA Comment Ur Microscopic Review Urine Culture Comments Nasal Screen MRSA (PCR) Not detected (Negative) Urine Opiates Screen (Neg) Ur Barbiturates Screen (Neg) Ur Amphetamines Screen (Neg) U Benzodiazepines Scrn (Neg) Urine Cocaine Screen (Neg) U Cannabinoids Screen (Neg) 08/12/18 08/12/18 08/12/18 Range/Units 02:26 03:06 03:13 WBC (4.0-11.0) th/mm3 RBC (4.50-5.90) mil/mm3 Hgb (13.0-17.0) gm/dL Hct (39.0-51.0) % MCV (80.0-100.0) fL MCH (27.0-34.0) pg MCHC (32.0-36.0) % RDW (11.6-17.2) % Plt Count (150-450) th/mm3 MPV (7.0-11.0) fL Prelim Diff (Auto) Neut % (Auto) (16.0-70.0) % Lymph % (Auto) (9.0-44.0) % [place] % (Auto) (0.0-8.0) % Eos % (Auto) (0.0-4.0) % Baso % (Auto) (0.0-2.0) % Neut # (Auto) (1.8-7.7) th/mm3 Lymph # (Auto) (1.0-4.8) th/mm3 [place] # (Auto) (0.0-0.9) th/mm3 Eos # (Auto) (0.0-0.4) th/mm3 Baso # (Auto) (0.0-0.2) th/mm3 WBC Differential Seg Neuts % (Manual) (16-70) % Band Neuts % (Manual) (0-6) % Lymphocytes % (Manual) (9-44) % Monocytes % (Manual) (0-8) % Abs Neuts (Manual) (1.8-7.7) th/mm3 Differential Comment Platelet Estimate (Normal) Platelet Morphology (Normal) RBC Morphology (Normal) Puncture Site Patient Temperature O2 Saturation (90-100) % ABG pH (7.380-7.420) ABG pCO2 (38-42) mmHg ABG pO2 (61-120) mmHg ABG HCO3 (22-26) mmol/L ABG O2 Content (12.0-20.0) Vol % ABG Base Excess (-2-2) mmol/L ABG Methemoglobin (0-2) % Martin Test VBG pH (7.360-7.400) VBG pCO2 (44-48) mmHG VBG pO2 (35-40) mmHG VBG HCO3 (22-26) mmol/L VBG O2 Saturation (70-76) % VBG O2 Content (9.0-17.0) Vol % VBG Base Excess (-2-2) mmol/L VBG Carboxyhemoglobin (0-4) % VBG Methemoglobin (0-2) % Hemoglobin (12.0-16.0) G/DL Carboxyhemoglobin (0-4) % Inspired O2 % Critical Value Sodium 139 D (136-145) meq/L Potassium 4.1 D (3.5-5.1) meq/L Chloride 111 H D (98-107) meq/L Carbon Dioxide 14.8 L (21.0-32.0) meq/L Anion Gap 13 (5-15) meq/L BUN 14 (7-18) mg/dL Creatinine 0.91 (0.60-1.30) mg/dL Estimated GFR Greater than 89 (>89) mL/min POC Glucose 140 H 155 H (68-110) mg/dl Random Glucose 126 H D (74-106) mg/dL Lactic Acid (0.4-2.0) mmol/L Calcium 8.3 L D (8.5-10.1) mg/dL Prot Corrected Calcium Phosphorus 3.3 D (2.5-4.9) mg/dL Magnesium (1.5-2.5) mg/dL Total Bilirubin (0.2-1.0) mg/dL AST (15-37) U/L ALT (12-78) U/L Alkaline Phosphatase (45-117) U/L Total Creatine Kinase (39-308) U/L Troponin I (0.02-0.05) ng/mL Total Protein (6.4-8.2) g/dL Albumin (3.4-5.0) g/dL Lipase (73-393) U/L Beta-Hydroxybutyric Acd (0.00-0.39) mmol/L Urine Color (Yellw/Straw) Urine Clarity (Clear) Urine pH (5.0-8.5) Ur Specific [place] (1.002-1.035) Urine Protein (Neg-Trace) mg/dL Urine Glucose (UA) (Negative) mg/dL Urine Ketones (Negative) mg/dL Urine Occult Blood (Negative) Urine Nitrate (Negative) Urine Bilirubin (Negative) Urine Urobilinogen (Less than 2) mg/dL Ur Leukocyte Esterase (Negative) Urine WBC (0-5) /hpf Urine Mucus (Occasional) /lpf Micro UA Comment Ur Microscopic Review Urine Culture Comments Nasal Screen MRSA (PCR) (Negative) Urine Opiates Screen (Neg) Ur Barbiturates Screen (Neg) Ur Amphetamines Screen (Neg) U Benzodiazepines Scrn (Neg) Urine Cocaine Screen (Neg) U Cannabinoids Screen (Neg) 08/12/18 08/12/18 08/12/18 Range/Units 04:16 04:49 05:34 WBC (4.0-11.0) th/mm3 RBC (4.50-5.90) mil/mm3 Hgb (13.0-17.0) gm/dL Hct (39.0-51.0) % MCV (80.0-100.0) fL MCH (27.0-34.0) pg MCHC (32.0-36.0) % RDW (11.6-17.2) % Plt Count (150-450) th/mm3 MPV (7.0-11.0) fL Prelim Diff (Auto) Neut % (Auto) (16.0-70.0) % Lymph % (Auto) (9.0-44.0) % [place] % (Auto) (0.0-8.0) % Eos % (Auto) (0.0-4.0) % Baso % (Auto) (0.0-2.0) % Neut # (Auto) (1.8-7.7) th/mm3 Lymph # (Auto) (1.0-4.8) th/mm3 [place] # (Auto) (0.0-0.9) th/mm3 Eos # (Auto) (0.0-0.4) th/mm3 Baso # (Auto) (0.0-0.2) th/mm3 WBC Differential Seg Neuts % (Manual) (16-70) % Band Neuts % (Manual) (0-6) % Lymphocytes % (Manual) (9-44) % Monocytes % (Manual) (0-8) % Abs Neuts (Manual) (1.8-7.7) th/mm3 Differential Comment Platelet Estimate (Normal) Platelet Morphology (Normal) RBC Morphology (Normal) Puncture Site Patient Temperature O2 Saturation (90-100) % ABG pH (7.380-7.420) ABG pCO2 (38-42) mmHg ABG pO2 (61-120) mmHg ABG HCO3 (22-26) mmol/L ABG O2 Content (12.0-20.0) Vol % ABG Base Excess (-2-2) mmol/L ABG Methemoglobin (0-2) % Martin Test VBG pH (7.360-7.400) VBG pCO2 (44-48) mmHG VBG pO2 (35-40) mmHG VBG HCO3 (22-26) mmol/L VBG O2 Saturation (70-76) % VBG O2 Content (9.0-17.0) Vol % VBG Base Excess (-2-2) mmol/L VBG Carboxyhemoglobin (0-4) % VBG Methemoglobin (0-2) % Hemoglobin (12.0-16.0) G/DL Carboxyhemoglobin (0-4) % Inspired O2 % Critical Value Sodium (136-145) meq/L Potassium (3.5-5.1) meq/L Chloride (98-107) meq/L Carbon Dioxide (21.0-32.0) meq/L Anion Gap (5-15) meq/L BUN (7-18) mg/dL Creatinine (0.60-1.30) mg/dL Estimated GFR (>89) mL/min POC Glucose 132 H 126 H 155 H (68-110) mg/dl Random Glucose (74-106) mg/dL Lactic Acid (0.4-2.0) mmol/L Calcium (8.5-10.1) mg/dL Prot Corrected Calcium Phosphorus (2.5-4.9) mg/dL Magnesium (1.5-2.5) mg/dL Total Bilirubin (0.2-1.0) mg/dL AST (15-37) U/L ALT (12-78) U/L Alkaline Phosphatase (45-117) U/L Total Creatine Kinase (39-308) U/L Troponin I (0.02-0.05) ng/mL Total Protein (6.4-8.2) g/dL Albumin (3.4-5.0) g/dL Lipase (73-393) U/L Beta-Hydroxybutyric Acd (0.00-0.39) mmol/L Urine Color (Yellw/Straw) Urine Clarity (Clear) Urine pH (5.0-8.5) Ur Specific [place] (1.002-1.035) Urine Protein (Neg-Trace) mg/dL Urine Glucose (UA) (Negative) mg/dL Urine Ketones (Negative) mg/dL Urine Occult Blood (Negative) Urine Nitrate (Negative) Urine Bilirubin (Negative) Urine Urobilinogen (Less than 2) mg/dL Ur Leukocyte Esterase (Negative) Urine WBC (0-5) /hpf Urine Mucus (Occasional) /lpf Micro UA Comment Ur Microscopic Review Urine Culture Comments Nasal Screen MRSA (PCR) (Negative) Urine Opiates Screen (Neg) Ur Barbiturates Screen (Neg) Ur Amphetamines Screen (Neg) U Benzodiazepines Scrn (Neg) Urine Cocaine Screen (Neg) U Cannabinoids Screen (Neg) 08/12/18 08/12/18 08/12/18 Range/Units 06:40 07:40 08:33 WBC (4.0-11.0) th/mm3 RBC (4.50-5.90) mil/mm3 Hgb (13.0-17.0) gm/dL Hct (39.0-51.0) % MCV (80.0-100.0) fL MCH (27.0-34.0) pg MCHC (32.0-36.0) % RDW (11.6-17.2) % Plt Count (150-450) th/mm3 MPV (7.0-11.0) fL Prelim Diff (Auto) Neut % (Auto) (16.0-70.0) % Lymph % (Auto) (9.0-44.0) % [place] % (Auto) (0.0-8.0) % Eos % (Auto) (0.0-4.0) % Baso % (Auto) (0.0-2.0) % Neut # (Auto) (1.8-7.7) th/mm3 Lymph # (Auto) (1.0-4.8) th/mm3 [place] # (Auto) (0.0-0.9) th/mm3 Eos # (Auto) (0.0-0.4) th/mm3 Baso # (Auto) (0.0-0.2) th/mm3 WBC Differential Seg Neuts % (Manual) (16-70) % Band Neuts % (Manual) (0-6) % Lymphocytes % (Manual) (9-44) % Monocytes % (Manual) (0-8) % Abs Neuts (Manual) (1.8-7.7) th/mm3 Differential Comment Platelet Estimate (Normal) Platelet Morphology (Normal) RBC Morphology (Normal) Puncture Site Patient Temperature O2 Saturation (90-100) % ABG pH (7.380-7.420) ABG pCO2 (38-42) mmHg ABG pO2 (61-120) mmHg ABG HCO3 (22-26) mmol/L ABG O2 Content (12.0-20.0) Vol % ABG Base Excess (-2-2) mmol/L ABG Methemoglobin (0-2) % Martin Test VBG pH (7.360-7.400) VBG pCO2 (44-48) mmHG VBG pO2 (35-40) mmHG VBG HCO3 (22-26) mmol/L VBG O2 Saturation (70-76) % VBG O2 Content (9.0-17.0) Vol % VBG Base Excess (-2-2) mmol/L VBG Carboxyhemoglobin (0-4) % VBG Methemoglobin (0-2) % Hemoglobin (12.0-16.0) G/DL Carboxyhemoglobin (0-4) % Inspired O2 % Critical Value Sodium (136-145) meq/L Potassium (3.5-5.1) meq/L Chloride (98-107) meq/L Carbon Dioxide (21.0-32.0) meq/L Anion Gap (5-15) meq/L BUN (7-18) mg/dL Creatinine (0.60-1.30) mg/dL Estimated GFR (>89) mL/min POC Glucose 173 H 178 H 137 H (68-110) mg/dl Random Glucose (74-106) mg/dL Lactic Acid (0.4-2.0) mmol/L Calcium (8.5-10.1) mg/dL Prot Corrected Calcium Phosphorus (2.5-4.9) mg/dL Magnesium (1.5-2.5) mg/dL Total Bilirubin (0.2-1.0) mg/dL AST (15-37) U/L ALT (12-78) U/L Alkaline Phosphatase (45-117) U/L Total Creatine Kinase (39-308) U/L Troponin I (0.02-0.05) ng/mL Total Protein (6.4-8.2) g/dL Albumin (3.4-5.0) g/dL Lipase (73-393) U/L Beta-Hydroxybutyric Acd (0.00-0.39) mmol/L Urine Color (Yellw/Straw) Urine Clarity (Clear) Urine pH (5.0-8.5) Ur Specific [place] (1.002-1.035) Urine Protein (Neg-Trace) mg/dL Urine Glucose (UA) (Negative) mg/dL Urine Ketones (Negative) mg/dL Urine Occult Blood (Negative) Urine Nitrate (Negative) Urine Bilirubin (Negative) Urine Urobilinogen (Less than 2) mg/dL Ur Leukocyte Esterase (Negative) Urine WBC (0-5) /hpf Urine Mucus (Occasional) /lpf Micro UA Comment Ur Microscopic Review Urine Culture Comments Nasal Screen MRSA (PCR) (Negative) Urine Opiates Screen (Neg) Ur Barbiturates Screen (Neg) Ur Amphetamines Screen (Neg) U Benzodiazepines Scrn (Neg) Urine Cocaine Screen (Neg) U Cannabinoids Screen (Neg) 08/12/18 08/12/18 08/12/18 Range/Units 08:47 08:47 08:59 WBC 6.8 (4.0-11.0) th/mm3 RBC 4.50 (4.50-5.90) mil/mm3 Hgb 13.1 D (13.0-17.0) gm/dL Hct 38.4 L (39.0-51.0) % MCV 85.4 (80.0-100.0) fL MCH 29.1 (27.0-34.0) pg MCHC 34.1 (32.0-36.0) % RDW 13.7 (11.6-17.2) % Plt Count 251 (150-450) th/mm3 MPV 7.5 (7.0-11.0) fL Prelim Diff (Auto) Neut % (Auto) 55.0 (16.0-70.0) % Lymph % (Auto) 34.2 (9.0-44.0) % [place] % (Auto) 9.6 H (0.0-8.0) % Eos % (Auto) 1.1 (0.0-4.0) % Baso % (Auto) 0.1 (0.0-2.0) % Neut # (Auto) 3.7 (1.8-7.7) th/mm3 Lymph # (Auto) 2.3 (1.0-4.8) th/mm3 [place] # (Auto) 0.7 (0.0-0.9) th/mm3 Eos # (Auto) 0.1 (0.0-0.4) th/mm3 Baso # (Auto) 0.0 (0.0-0.2) th/mm3 WBC Differential . Seg Neuts % (Manual) (16-70) % Band Neuts % (Manual) (0-6) % Lymphocytes % (Manual) (9-44) % Monocytes % (Manual) (0-8) % Abs Neuts (Manual) (1.8-7.7) th/mm3 Differential Comment Auto diff final Platelet Estimate (Normal) Platelet Morphology (Normal) RBC Morphology (Normal) Puncture Site Patient Temperature O2 Saturation (90-100) % ABG pH (7.380-7.420) ABG pCO2 (38-42) mmHg ABG pO2 (61-120) mmHg ABG HCO3 (22-26) mmol/L ABG O2 Content (12.0-20.0) Vol % ABG Base Excess (-2-2) mmol/L ABG Methemoglobin (0-2) % Martin Test VBG pH (7.360-7.400) VBG pCO2 (44-48) mmHG VBG pO2 (35-40) mmHG VBG HCO3 (22-26) mmol/L VBG O2 Saturation (70-76) % VBG O2 Content (9.0-17.0) Vol % VBG Base Excess (-2-2) mmol/L VBG Carboxyhemoglobin (0-4) % VBG Methemoglobin (0-2) % Hemoglobin (12.0-16.0) G/DL Carboxyhemoglobin (0-4) % Inspired O2 % Critical Value Sodium (136-145) meq/L Potassium (3.5-5.1) meq/L Chloride (98-107) meq/L Carbon Dioxide (21.0-32.0) meq/L Anion Gap (5-15) meq/L BUN (7-18) mg/dL Creatinine (0.60-1.30) mg/dL Estimated GFR (>89) mL/min POC Glucose 159 H (68-110) mg/dl Random Glucose (74-106) mg/dL Lactic Acid (0.4-2.0) mmol/L Calcium (8.5-10.1) mg/dL Prot Corrected Calcium Phosphorus (2.5-4.9) mg/dL Magnesium (1.5-2.5) mg/dL Total Bilirubin (0.2-1.0) mg/dL AST (15-37) U/L ALT (12-78) U/L Alkaline Phosphatase (45-117) U/L Total Creatine Kinase (39-308) U/L Troponin I (0.02-0.05) ng/mL Total Protein (6.4-8.2) g/dL Albumin (3.4-5.0) g/dL Lipase (73-393) U/L Beta-Hydroxybutyric Acd 1.75 H D (0.00-0.39) mmol/L Urine Color (Yellw/Straw) Urine Clarity (Clear) Urine pH (5.0-8.5) Ur Specific [place] (1.002-1.035) Urine Protein (Neg-Trace) mg/dL Urine Glucose (UA) (Negative) mg/dL Urine Ketones (Negative) mg/dL Urine Occult Blood (Negative) Urine Nitrate (Negative) Urine Bilirubin (Negative) Urine Urobilinogen (Less than 2) mg/dL Ur Leukocyte Esterase (Negative) Urine WBC (0-5) /hpf Urine Mucus (Occasional) /lpf Micro UA Comment Ur Microscopic Review Urine Culture Comments Nasal Screen MRSA (PCR) (Negative) Urine Opiates Screen (Neg) Ur Barbiturates Screen (Neg) Ur Amphetamines Screen (Neg) U Benzodiazepines Scrn (Neg) Urine Cocaine Screen (Neg) U Cannabinoids Screen (Neg) 08/12/18 08/12/18 08/12/18 Range/Units 10:00 11:00 11:35 WBC (4.0-11.0) th/mm3 RBC (4.50-5.90) mil/mm3 Hgb (13.0-17.0) gm/dL Hct (39.0-51.0) % MCV (80.0-100.0) fL MCH (27.0-34.0) pg MCHC (32.0-36.0) % RDW (11.6-17.2) % Plt Count (150-450) th/mm3 MPV (7.0-11.0) fL Prelim Diff (Auto) Neut % (Auto) (16.0-70.0) % Lymph % (Auto) (9.0-44.0) % [place] % (Auto) (0.0-8.0) % Eos % (Auto) (0.0-4.0) % Baso % (Auto) (0.0-2.0) % Neut # (Auto) (1.8-7.7) th/mm3 Lymph # (Auto) (1.0-4.8) th/mm3 [place] # (Auto) (0.0-0.9) th/mm3 Eos # (Auto) (0.0-0.4) th/mm3 Baso # (Auto) (0.0-0.2) th/mm3 WBC Differential Seg Neuts % (Manual) (16-70) % Band Neuts % (Manual) (0-6) % Lymphocytes % (Manual) (9-44) % Monocytes % (Manual) (0-8) % Abs Neuts (Manual) (1.8-7.7) th/mm3 Differential Comment Platelet Estimate (Normal) Platelet Morphology (Normal) RBC Morphology (Normal) Puncture Site Patient Temperature O2 Saturation (90-100) % ABG pH (7.380-7.420) ABG pCO2 (38-42) mmHg ABG pO2 (61-120) mmHg ABG HCO3 (22-26) mmol/L ABG O2 Content (12.0-20.0) Vol % ABG Base Excess (-2-2) mmol/L ABG Methemoglobin (0-2) % Martin Test VBG pH (7.360-7.400) VBG pCO2 (44-48) mmHG VBG pO2 (35-40) mmHG VBG HCO3 (22-26) mmol/L VBG O2 Saturation (70-76) % VBG O2 Content (9.0-17.0) Vol % VBG Base Excess (-2-2) mmol/L VBG Carboxyhemoglobin (0-4) % VBG Methemoglobin (0-2) % Hemoglobin (12.0-16.0) G/DL Carboxyhemoglobin (0-4) % Inspired O2 % Critical Value Sodium 141 (136-145) meq/L Potassium 3.3 L D (3.5-5.1) meq/L Chloride 111 H (98-107) meq/L Carbon Dioxide 19.5 L (21.0-32.0) meq/L Anion Gap 11 (5-15) meq/L BUN 11 (7-18) mg/dL Creatinine 0.86 (0.60-1.30) mg/dL Estimated GFR Greater than 89 (>89) mL/min POC Glucose 178 H 183 H (68-110) mg/dl Random Glucose 163 H (74-106) mg/dL Lactic Acid (0.4-2.0) mmol/L Calcium 8.0 L (8.5-10.1) mg/dL Prot Corrected Calcium Phosphorus 2.6 (2.5-4.9) mg/dL Magnesium (1.5-2.5) mg/dL Total Bilirubin (0.2-1.0) mg/dL AST (15-37) U/L ALT (12-78) U/L Alkaline Phosphatase (45-117) U/L Total Creatine Kinase (39-308) U/L Troponin I (0.02-0.05) ng/mL Total Protein (6.4-8.2) g/dL Albumin (3.4-5.0) g/dL Lipase (73-393) U/L Beta-Hydroxybutyric Acd (0.00-0.39) mmol/L Urine Color (Yellw/Straw) Urine Clarity (Clear) Urine pH (5.0-8.5) Ur Specific [place] (1.002-1.035) Urine Protein (Neg-Trace) mg/dL Urine Glucose (UA) (Negative) mg/dL Urine Ketones (Negative) mg/dL Urine Occult Blood (Negative) Urine Nitrate (Negative) Urine Bilirubin (Negative) Urine Urobilinogen (Less than 2) mg/dL Ur Leukocyte Esterase (Negative) Urine WBC (0-5) /hpf Urine Mucus (Occasional) /lpf Micro UA Comment Ur Microscopic Review Urine Culture Comments Nasal Screen MRSA (PCR) (Negative) Urine Opiates Screen (Neg) Ur Barbiturates Screen (Neg) Ur Amphetamines Screen (Neg) U Benzodiazepines Scrn (Neg) Urine Cocaine Screen (Neg) U Cannabinoids Screen (Neg) 08/12/18 08/12/18 08/12/18 Range/Units 11:54 13:05 14:03 WBC (4.0-11.0) th/mm3 RBC (4.50-5.90) mil/mm3 Hgb (13.0-17.0) gm/dL Hct (39.0-51.0) % MCV (80.0-100.0) fL MCH (27.0-34.0) pg MCHC (32.0-36.0) % RDW (11.6-17.2) % Plt Count (150-450) th/mm3 MPV (7.0-11.0) fL Prelim Diff (Auto) Neut % (Auto) (16.0-70.0) % Lymph % (Auto) (9.0-44.0) % [place] % (Auto) (0.0-8.0) % Eos % (Auto) (0.0-4.0) % Baso % (Auto) (0.0-2.0) % Neut # (Auto) (1.8-7.7) th/mm3 Lymph # (Auto) (1.0-4.8) th/mm3 [place] # (Auto) (0.0-0.9) th/mm3 Eos # (Auto) (0.0-0.4) th/mm3 Baso # (Auto) (0.0-0.2) th/mm3 WBC Differential Seg Neuts % (Manual) (16-70) % Band Neuts % (Manual) (0-6) % Lymphocytes % (Manual) (9-44) % Monocytes % (Manual) (0-8) % Abs Neuts (Manual) (1.8-7.7) th/mm3 Differential Comment Platelet Estimate (Normal) Platelet Morphology (Normal) RBC Morphology (Normal) Puncture Site Patient Temperature O2 Saturation (90-100) % ABG pH (7.380-7.420) ABG pCO2 (38-42) mmHg ABG pO2 (61-120) mmHg ABG HCO3 (22-26) mmol/L ABG O2 Content (12.0-20.0) Vol % ABG Base Excess (-2-2) mmol/L ABG Methemoglobin (0-2) % Martin Test VBG pH (7.360-7.400) VBG pCO2 (44-48) mmHG VBG pO2 (35-40) mmHG VBG HCO3 (22-26) mmol/L VBG O2 Saturation (70-76) % VBG O2 Content (9.0-17.0) Vol % VBG Base Excess (-2-2) mmol/L VBG Carboxyhemoglobin (0-4) % VBG Methemoglobin (0-2) % Hemoglobin (12.0-16.0) G/DL Carboxyhemoglobin (0-4) % Inspired O2 % Critical Value Sodium (136-145) meq/L Potassium (3.5-5.1) meq/L Chloride (98-107) meq/L Carbon Dioxide (21.0-32.0) meq/L Anion Gap (5-15) meq/L BUN (7-18) mg/dL Creatinine (0.60-1.30) mg/dL Estimated GFR (>89) mL/min POC Glucose 151 H 172 H 143 H (68-110) mg/dl Random Glucose (74-106) mg/dL Lactic Acid (0.4-2.0) mmol/L Calcium (8.5-10.1) mg/dL Prot Corrected Calcium Phosphorus (2.5-4.9) mg/dL Magnesium (1.5-2.5) mg/dL Total Bilirubin (0.2-1.0) mg/dL AST (15-37) U/L ALT (12-78) U/L Alkaline Phosphatase (45-117) U/L Total Creatine Kinase (39-308) U/L Troponin I (0.02-0.05) ng/mL Total Protein (6.4-8.2) g/dL Albumin (3.4-5.0) g/dL Lipase (73-393) U/L Beta-Hydroxybutyric Acd (0.00-0.39) mmol/L Urine Color (Yellw/Straw) Urine Clarity (Clear) Urine pH (5.0-8.5) Ur Specific [place] (1.002-1.035) Urine Protein (Neg-Trace) mg/dL Urine Glucose (UA) (Negative) mg/dL Urine Ketones (Negative) mg/dL Urine Occult Blood (Negative) Urine Nitrate (Negative) Urine Bilirubin (Negative) Urine Urobilinogen (Less than 2) mg/dL Ur Leukocyte Esterase (Negative) Urine WBC (0-5) /hpf Urine Mucus (Occasional) /lpf Micro UA Comment Ur Microscopic Review Urine Culture Comments Nasal Screen MRSA (PCR) (Negative) Urine Opiates Screen (Neg) Ur Barbiturates Screen (Neg) Ur Amphetamines Screen (Neg) U Benzodiazepines Scrn (Neg) Urine Cocaine Screen (Neg) U Cannabinoids Screen (Neg) 08/12/18 08/12/18 08/12/18 Range/Units 14:46 14:46 15:09 WBC (4.0-11.0) th/mm3 RBC (4.50-5.90) mil/mm3 Hgb (13.0-17.0) gm/dL Hct (39.0-51.0) % MCV (80.0-100.0) fL MCH (27.0-34.0) pg MCHC (32.0-36.0) % RDW (11.6-17.2) % Plt Count (150-450) th/mm3 MPV (7.0-11.0) fL Prelim Diff (Auto) Neut % (Auto) (16.0-70.0) % Lymph % (Auto) (9.0-44.0) % [place] % (Auto) (0.0-8.0) % Eos % (Auto) (0.0-4.0) % Baso % (Auto) (0.0-2.0) % Neut # (Auto) (1.8-7.7) th/mm3 Lymph # (Auto) (1.0-4.8) th/mm3 [place] # (Auto) (0.0-0.9) th/mm3 Eos # (Auto) (0.0-0.4) th/mm3 Baso # (Auto) (0.0-0.2) th/mm3 WBC Differential Seg Neuts % (Manual) (16-70) % Band Neuts % (Manual) (0-6) % Lymphocytes % (Manual) (9-44) % Monocytes % (Manual) (0-8) % Abs Neuts (Manual) (1.8-7.7) th/mm3 Differential Comment Platelet Estimate (Normal) Platelet Morphology (Normal) RBC Morphology (Normal) Puncture Site Patient Temperature O2 Saturation (90-100) % ABG pH (7.380-7.420) ABG pCO2 (38-42) mmHg ABG pO2 (61-120) mmHg ABG HCO3 (22-26) mmol/L ABG O2 Content (12.0-20.0) Vol % ABG Base Excess (-2-2) mmol/L ABG Methemoglobin (0-2) % Martin Test VBG pH (7.360-7.400) VBG pCO2 (44-48) mmHG VBG pO2 (35-40) mmHG VBG HCO3 (22-26) mmol/L VBG O2 Saturation (70-76) % VBG O2 Content (9.0-17.0) Vol % VBG Base Excess (-2-2) mmol/L VBG Carboxyhemoglobin (0-4) % VBG Methemoglobin (0-2) % Hemoglobin (12.0-16.0) G/DL Carboxyhemoglobin (0-4) % Inspired O2 % Critical Value Sodium 141 (136-145) meq/L Potassium 3.7 (3.5-5.1) meq/L Chloride 112 H (98-107) meq/L Carbon Dioxide 17.9 L (21.0-32.0) meq/L Anion Gap 11 (5-15) meq/L BUN 9 (7-18) mg/dL Creatinine 0.78 (0.60-1.30) mg/dL Estimated GFR Greater than 89 (>89) mL/min POC Glucose 203 H (68-110) mg/dl Random Glucose 168 H (74-106) mg/dL Lactic Acid (0.4-2.0) mmol/L Calcium 7.9 L (8.5-10.1) mg/dL Prot Corrected Calcium Phosphorus 2.0 L (2.5-4.9) mg/dL Magnesium (1.5-2.5) mg/dL Total Bilirubin (0.2-1.0) mg/dL AST (15-37) U/L ALT (12-78) U/L Alkaline Phosphatase (45-117) U/L Total Creatine Kinase (39-308) U/L Troponin I (0.02-0.05) ng/mL Total Protein (6.4-8.2) g/dL Albumin (3.4-5.0) g/dL Lipase (73-393) U/L Beta-Hydroxybutyric Acd 2.40 H D (0.00-0.39) mmol/L Urine Color (Yellw/Straw) Urine Clarity (Clear) Urine pH (5.0-8.5) Ur Specific [place] (1.002-1.035) Urine Protein (Neg-Trace) mg/dL Urine Glucose (UA) (Negative) mg/dL Urine Ketones (Negative) mg/dL Urine Occult Blood (Negative) Urine Nitrate (Negative) Urine Bilirubin (Negative) Urine Urobilinogen (Less than 2) mg/dL Ur Leukocyte Esterase (Negative) Urine WBC (0-5) /hpf Urine Mucus (Occasional) /lpf Micro UA Comment Ur Microscopic Review Urine Culture Comments Nasal Screen MRSA (PCR) (Negative) Urine Opiates Screen (Neg) Ur Barbiturates Screen (Neg) Ur Amphetamines Screen (Neg) U Benzodiazepines Scrn (Neg) Urine Cocaine Screen (Neg) U Cannabinoids Screen (Neg) 08/12/18 08/12/18 08/12/18 Range/Units 16:07 17:09 18:45 WBC (4.0-11.0) th/mm3 RBC (4.50-5.90) mil/mm3 Hgb (13.0-17.0) gm/dL Hct (39.0-51.0) % MCV (80.0-100.0) fL MCH (27.0-34.0) pg MCHC (32.0-36.0) % RDW (11.6-17.2) % Plt Count (150-450) th/mm3 MPV (7.0-11.0) fL Prelim Diff (Auto) Neut % (Auto) (16.0-70.0) % Lymph % (Auto) (9.0-44.0) % [place] % (Auto) (0.0-8.0) % Eos % (Auto) (0.0-4.0) % Baso % (Auto) (0.0-2.0) % Neut # (Auto) (1.8-7.7) th/mm3 Lymph # (Auto) (1.0-4.8) th/mm3 [place] # (Auto) (0.0-0.9) th/mm3 Eos # (Auto) (0.0-0.4) th/mm3 Baso # (Auto) (0.0-0.2) th/mm3 WBC Differential Seg Neuts % (Manual) (16-70) % Band Neuts % (Manual) (0-6) % Lymphocytes % (Manual) (9-44) % Monocytes % (Manual) (0-8) % Abs Neuts (Manual) (1.8-7.7) th/mm3 Differential Comment Platelet Estimate (Normal) Platelet Morphology (Normal) RBC Morphology (Normal) Puncture Site Patient Temperature O2 Saturation (90-100) % ABG pH (7.380-7.420) ABG pCO2 (38-42) mmHg ABG pO2 (61-120) mmHg ABG HCO3 (22-26) mmol/L ABG O2 Content (12.0-20.0) Vol % ABG Base Excess (-2-2) mmol/L ABG Methemoglobin (0-2) % Martin Test VBG pH (7.360-7.400) VBG pCO2 (44-48) mmHG VBG pO2 (35-40) mmHG VBG HCO3 (22-26) mmol/L VBG O2 Saturation (70-76) % VBG O2 Content (9.0-17.0) Vol % VBG Base Excess (-2-2) mmol/L VBG Carboxyhemoglobin (0-4) % VBG Methemoglobin (0-2) % Hemoglobin (12.0-16.0) G/DL Carboxyhemoglobin (0-4) % Inspired O2 % Critical Value Sodium (136-145) meq/L Potassium (3.5-5.1) meq/L Chloride (98-107) meq/L Carbon Dioxide (21.0-32.0) meq/L Anion Gap (5-15) meq/L BUN (7-18) mg/dL Creatinine (0.60-1.30) mg/dL Estimated GFR (>89) mL/min POC Glucose 211 H 185 H 390 H (68-110) mg/dl Random Glucose (74-106) mg/dL Lactic Acid (0.4-2.0) mmol/L Calcium (8.5-10.1) mg/dL Prot Corrected Calcium Phosphorus (2.5-4.9) mg/dL Magnesium (1.5-2.5) mg/dL Total Bilirubin (0.2-1.0) mg/dL AST (15-37) U/L ALT (12-78) U/L Alkaline Phosphatase (45-117) U/L Total Creatine Kinase (39-308) U/L Troponin I (0.02-0.05) ng/mL Total Protein (6.4-8.2) g/dL Albumin (3.4-5.0) g/dL Lipase (73-393) U/L Beta-Hydroxybutyric Acd (0.00-0.39) mmol/L Urine Color (Yellw/Straw) Urine Clarity (Clear) Urine pH (5.0-8.5) Ur Specific [place] (1.002-1.035) Urine Protein (Neg-Trace) mg/dL Urine Glucose (UA) (Negative) mg/dL Urine Ketones (Negative) mg/dL Urine Occult Blood (Negative) Urine Nitrate (Negative) Urine Bilirubin (Negative) Urine Urobilinogen (Less than 2) mg/dL Ur Leukocyte Esterase (Negative) Urine WBC (0-5) /hpf Urine Mucus (Occasional) /lpf Micro UA Comment Ur Microscopic Review Urine Culture Comments Nasal Screen MRSA (PCR) (Negative) Urine Opiates Screen (Neg) Ur Barbiturates Screen (Neg) Ur Amphetamines Screen (Neg) U Benzodiazepines Scrn (Neg) Urine Cocaine Screen (Neg) U Cannabinoids Screen (Neg) 08/12/18 08/12/18 08/13/18 Range/Units 21:02 21:42 01:50 WBC (4.0-11.0) th/mm3 RBC (4.50-5.90) mil/mm3 Hgb (13.0-17.0) gm/dL Hct (39.0-51.0) % MCV (80.0-100.0) fL MCH (27.0-34.0) pg MCHC (32.0-36.0) % RDW (11.6-17.2) % Plt Count (150-450) th/mm3 MPV (7.0-11.0) fL Prelim Diff (Auto) Neut % (Auto) (16.0-70.0) % Lymph % (Auto) (9.0-44.0) % [place] % (Auto) (0.0-8.0) % Eos % (Auto) (0.0-4.0) % Baso % (Auto) (0.0-2.0) % Neut # (Auto) (1.8-7.7) th/mm3 Lymph # (Auto) (1.0-4.8) th/mm3 [place] # (Auto) (0.0-0.9) th/mm3 Eos # (Auto) (0.0-0.4) th/mm3 Baso # (Auto) (0.0-0.2) th/mm3 WBC Differential Seg Neuts % (Manual) (16-70) % Band Neuts % (Manual) (0-6) % Lymphocytes % (Manual) (9-44) % Monocytes % (Manual) (0-8) % Abs Neuts (Manual) (1.8-7.7) th/mm3 Differential Comment Platelet Estimate (Normal) Platelet Morphology (Normal) RBC Morphology (Normal) Puncture Site Patient Temperature O2 Saturation (90-100) % ABG pH (7.380-7.420) ABG pCO2 (38-42) mmHg ABG pO2 (61-120) mmHg ABG HCO3 (22-26) mmol/L ABG O2 Content (12.0-20.0) Vol % ABG Base Excess (-2-2) mmol/L ABG Methemoglobin (0-2) % Martin Test VBG pH (7.360-7.400) VBG pCO2 (44-48) mmHG VBG pO2 (35-40) mmHG VBG HCO3 (22-26) mmol/L VBG O2 Saturation (70-76) % VBG O2 Content (9.0-17.0) Vol % VBG Base Excess (-2-2) mmol/L VBG Carboxyhemoglobin (0-4) % VBG Methemoglobin (0-2) % Hemoglobin (12.0-16.0) G/DL Carboxyhemoglobin (0-4) % Inspired O2 % Critical Value Sodium 136 (136-145) meq/L Potassium 3.5 (3.5-5.1) meq/L Chloride 105 (98-107) meq/L Carbon Dioxide 19.7 L (21.0-32.0) meq/L Anion Gap 11 (5-15) meq/L BUN 8 (7-18) mg/dL Creatinine 0.91 (0.60-1.30) mg/dL Estimated GFR Greater than 89 (>89) mL/min POC Glucose 220 H 141 H (68-110) mg/dl Random Glucose 265 H (74-106) mg/dL Lactic Acid (0.4-2.0) mmol/L Calcium 8.3 L (8.5-10.1) mg/dL Prot Corrected Calcium Phosphorus 1.6 L (2.5-4.9) mg/dL Magnesium (1.5-2.5) mg/dL Total Bilirubin (0.2-1.0) mg/dL AST (15-37) U/L ALT (12-78) U/L Alkaline Phosphatase (45-117) U/L Total Creatine Kinase (39-308) U/L Troponin I (0.02-0.05) ng/mL Total Protein (6.4-8.2) g/dL Albumin (3.4-5.0) g/dL Lipase (73-393) U/L Beta-Hydroxybutyric Acd (0.00-0.39) mmol/L Urine Color (Yellw/Straw) Urine Clarity (Clear) Urine pH (5.0-8.5) Ur Specific [place] (1.002-1.035) Urine Protein (Neg-Trace) mg/dL Urine Glucose (UA) (Negative) mg/dL Urine Ketones (Negative) mg/dL Urine Occult Blood (Negative) Urine Nitrate (Negative) Urine Bilirubin (Negative) Urine Urobilinogen (Less than 2) mg/dL Ur Leukocyte Esterase (Negative) Urine WBC (0-5) /hpf Urine Mucus (Occasional) /lpf Micro UA Comment Ur Microscopic Review Urine Culture Comments Nasal Screen MRSA (PCR) (Negative) Urine Opiates Screen (Neg) Ur Barbiturates Screen (Neg) Ur Amphetamines Screen (Neg) U Benzodiazepines Scrn (Neg) Urine Cocaine Screen (Neg) U Cannabinoids Screen (Neg) 08/13/18 08/13/18 08/13/18 Range/Units 05:23 05:23 06:11 WBC 6.5 (4.0-11.0) th/mm3 RBC 4.38 L (4.50-5.90) mil/mm3 Hgb 12.8 L (13.0-17.0) gm/dL Hct 37.1 L (39.0-51.0) % MCV 84.7 (80.0-100.0) fL MCH 29.3 (27.0-34.0) pg MCHC 34.5 (32.0-36.0) % RDW 14.0 (11.6-17.2) % Plt Count 243 (150-450) th/mm3 MPV 7.4 (7.0-11.0) fL Prelim Diff (Auto) Neut % (Auto) 49.2 (16.0-70.0) % Lymph % (Auto) 38.8 (9.0-44.0) % [place] % (Auto) 9.6 H (0.0-8.0) % Eos % (Auto) 2.3 (0.0-4.0) % Baso % (Auto) 0.1 (0.0-2.0) % Neut # (Auto) 3.2 (1.8-7.7) th/mm3 Lymph # (Auto) 2.5 (1.0-4.8) th/mm3 [place] # (Auto) 0.6 (0.0-0.9) th/mm3 Eos # (Auto) 0.1 (0.0-0.4) th/mm3 Baso # (Auto) 0.0 (0.0-0.2) th/mm3 WBC Differential . Seg Neuts % (Manual) (16-70) % Band Neuts % (Manual) (0-6) % Lymphocytes % (Manual) (9-44) % Monocytes % (Manual) (0-8) % Abs Neuts (Manual) (1.8-7.7) th/mm3 Differential Comment Auto diff final Platelet Estimate (Normal) Platelet Morphology (Normal) RBC Morphology (Normal) Puncture Site Patient Temperature O2 Saturation (90-100) % ABG pH (7.380-7.420) ABG pCO2 (38-42) mmHg ABG pO2 (61-120) mmHg ABG HCO3 (22-26) mmol/L ABG O2 Content (12.0-20.0) Vol % ABG Base Excess (-2-2) mmol/L ABG Methemoglobin (0-2) % Martin Test VBG pH (7.360-7.400) VBG pCO2 (44-48) mmHG VBG pO2 (35-40) mmHG VBG HCO3 (22-26) mmol/L VBG O2 Saturation (70-76) % VBG O2 Content (9.0-17.0) Vol % VBG Base Excess (-2-2) mmol/L VBG Carboxyhemoglobin (0-4) % VBG Methemoglobin (0-2) % Hemoglobin (12.0-16.0) G/DL Carboxyhemoglobin (0-4) % Inspired O2 % Critical Value Sodium 139 (136-145) meq/L Potassium 2.8 L* (3.5-5.1) meq/L Chloride 105 (98-107) meq/L Carbon Dioxide 22.5 (21.0-32.0) meq/L Anion Gap 12 (5-15) meq/L BUN 7 (7-18) mg/dL Creatinine 0.67 (0.60-1.30) mg/dL Estimated GFR Greater than 89 (>89) mL/min POC Glucose 185 H (68-110) mg/dl Random Glucose 179 H (74-106) mg/dL Lactic Acid (0.4-2.0) mmol/L Calcium 8.4 L (8.5-10.1) mg/dL Prot Corrected Calcium Phosphorus (2.5-4.9) mg/dL Magnesium (1.5-2.5) mg/dL Total Bilirubin 0.2 (0.2-1.0) mg/dL AST 37 (15-37) U/L ALT 31 (12-78) U/L Alkaline Phosphatase 88 (45-117) U/L Total Creatine Kinase (39-308) U/L Troponin I (0.02-0.05) ng/mL Total Protein 6.5 D (6.4-8.2) g/dL Albumin 3.3 L D (3.4-5.0) g/dL Lipase (73-393) U/L Beta-Hydroxybutyric Acd (0.00-0.39) mmol/L Urine Color (Yellw/Straw) Urine Clarity (Clear) Urine pH (5.0-8.5) Ur Specific [place] (1.002-1.035) Urine Protein (Neg-Trace) mg/dL Urine Glucose (UA) (Negative) mg/dL Urine Ketones (Negative) mg/dL Urine Occult Blood (Negative) Urine Nitrate (Negative) Urine Bilirubin (Negative) Urine Urobilinogen (Less than 2) mg/dL Ur Leukocyte Esterase (Negative) Urine WBC (0-5) /hpf Urine Mucus (Occasional) /lpf Micro UA Comment Ur Microscopic Review Urine Culture Comments Nasal Screen MRSA (PCR) (Negative) Urine Opiates Screen (Neg) Ur Barbiturates Screen (Neg) Ur Amphetamines Screen (Neg) U Benzodiazepines Scrn (Neg) Urine Cocaine Screen (Neg) U Cannabinoids Screen (Neg) 08/13/18 08/13/18 Range/Units 07:35 11:49 WBC (4.0-11.0) th/mm3 RBC (4.50-5.90) mil/mm3 Hgb (13.0-17.0) gm/dL Hct (39.0-51.0) % MCV (80.0-100.0) fL MCH (27.0-34.0) pg MCHC (32.0-36.0) % RDW (11.6-17.2) % Plt Count (150-450) th/mm3 MPV (7.0-11.0) fL Prelim Diff (Auto) Neut % (Auto) (16.0-70.0) % Lymph % (Auto) (9.0-44.0) % [place] % (Auto) (0.0-8.0) % Eos % (Auto) (0.0-4.0) % Baso % (Auto) (0.0-2.0) % Neut # (Auto) (1.8-7.7) th/mm3 Lymph # (Auto) (1.0-4.8) th/mm3 [place] # (Auto) (0.0-0.9) th/mm3 Eos # (Auto) (0.0-0.4) th/mm3 Baso # (Auto) (0.0-0.2) th/mm3 WBC Differential Seg Neuts % (Manual) (16-70) % Band Neuts % (Manual) (0-6) % Lymphocytes % (Manual) (9-44) % Monocytes % (Manual) (0-8) % Abs Neuts (Manual) (1.8-7.7) th/mm3 Differential Comment Platelet Estimate (Normal) Platelet Morphology (Normal) RBC Morphology (Normal) Puncture Site Patient Temperature O2 Saturation (90-100) % ABG pH (7.380-7.420) ABG pCO2 (38-42) mmHg ABG pO2 (61-120) mmHg ABG HCO3 (22-26) mmol/L ABG O2 Content (12.0-20.0) Vol % ABG Base Excess (-2-2) mmol/L ABG Methemoglobin (0-2) % Martin Test VBG pH (7.360-7.400) VBG pCO2 (44-48) mmHG VBG pO2 (35-40) mmHG VBG HCO3 (22-26) mmol/L VBG O2 Saturation (70-76) % VBG O2 Content (9.0-17.0) Vol % VBG Base Excess (-2-2) mmol/L VBG Carboxyhemoglobin (0-4) % VBG Methemoglobin (0-2) % Hemoglobin (12.0-16.0) G/DL Carboxyhemoglobin (0-4) % Inspired O2 % Critical Value Sodium (136-145) meq/L Potassium (3.5-5.1) meq/L Chloride (98-107) meq/L Carbon Dioxide (21.0-32.0) meq/L Anion Gap (5-15) meq/L BUN (7-18) mg/dL Creatinine (0.60-1.30) mg/dL Estimated GFR (>89) mL/min POC Glucose 209 H 221 H (68-110) mg/dl Random Glucose (74-106) mg/dL Lactic Acid (0.4-2.0) mmol/L Calcium (8.5-10.1) mg/dL Prot Corrected Calcium Phosphorus (2.5-4.9) mg/dL Magnesium (1.5-2.5) mg/dL Total Bilirubin (0.2-1.0) mg/dL AST (15-37) U/L ALT (12-78) U/L Alkaline Phosphatase (45-117) U/L Total Creatine Kinase (39-308) U/L Troponin I (0.02-0.05) ng/mL Total Protein (6.4-8.2) g/dL Albumin (3.4-5.0) g/dL Lipase (73-393) U/L Beta-Hydroxybutyric Acd (0.00-0.39) mmol/L Urine Color (Yellw/Straw) Urine Clarity (Clear) Urine pH (5.0-8.5) Ur Specific [place] (1.002-1.035) Urine Protein (Neg-Trace) mg/dL Urine Glucose (UA) (Negative) mg/dL Urine Ketones (Negative) mg/dL Urine Occult Blood (Negative) Urine Nitrate (Negative) Urine Bilirubin (Negative) Urine Urobilinogen (Less than 2) mg/dL Ur Leukocyte Esterase (Negative) Urine WBC (0-5) /hpf Urine Mucus (Occasional) /lpf Micro UA Comment Ur Microscopic Review Urine Culture Comments Nasal Screen MRSA (PCR) (Negative) Urine Opiates Screen (Neg) Ur Barbiturates Screen (Neg) Ur Amphetamines Screen (Neg) U Benzodiazepines Scrn (Neg) Urine Cocaine Screen (Neg) U Cannabinoids Screen (Neg) Imaging Data Radiologist's impression: Chest X-Ray 08/11/18 19:32 CONCLUSION: 1. No acute cardiopulmonary disease. Discharge Plan Discharge Disposition Patient Disposition: 30 Still Patient Discharge Condition Condition: Stable Discharge Details Diagnosis: Hyponatremia, Diabetic keto-acidosis Physicians Team ED Provider: Hoa Simon ED Midlevel Provider: Angela Billings Primary Care Provider: UNKNOWN, Attending Provider: Lorena Mckeon ED Status: Left Department Discharge Information Discharge Date/Time: 08/12/18 00:15
[2018-08-11 20:14] LABS: Baso % (Auto) 0.3 % (0.0-2.0); Eos % (Auto) 0.2 % (0.0-4.0); Hematocrit 46.9 % (39.0-51.0); Hemoglobin 15.3 gm/dL (13.0-17.0); Lymph # (Auto) 3.1 th/mm3 (1.0-4.8); Mean Corpuscular HGB Conc 32.7 % (32.0-36.0); Mean Corpuscular Hemoglobin 29.1 pg (27.0-34.0); Mean Corpuscular Volume 88.8 fL (80.0-100.0); Mean Platelet Volume 8.4 fL (7.0-11.0); Mono % (Auto) 8.4 % (0.0-8.0); Neut # (Auto) 7.8 th/mm3 (1.8-7.7); Neut % (Auto) 65.1 % (16.0-70.0); Platelet Count 322 th/mm3 (150-450); Red Blood Count 5.28 mil/mm3 (4.50-5.90)
[2018-08-11 20:20] LABS: Bilirubin,Urine Negative (Negative); Clarity,Urine Clear (Clear); Color,Urine Straw (Yellw/Straw); Glucose,Urine (UA) 500 or Greater mg/dL (Negative); Leukocyte Esterase,Urine Negative (Negative); Mucus,Urine Few /lpf (Occasional); Nitrite,Urine Negative (Negative); Specific Gravity,Urine 1.025 (1.002-1.035)
[2018-08-11 20:47] LABS: Lymphocytes 36 % (9-44); Monocytes 8 % (0-8); Platelet Estimate Normal (Normal); Platelet Morphology Normal (Normal); RBC Morphology Normal (Normal)
[2018-08-11] MEDS ORDERED: Sod Chloride 0.9% Inj 1,000 ML IV.SIG SCH ×2 (21:00→21:45)
[2018-08-11 21:15] LABS: Alanine Aminotransferase 36 U/L (12-78); Albumin 4.9 g/dL (3.4-5.0); Alkaline Phosphatase 138 U/L (45-117); Anion Gap 24 meq/L (5-15); Aspartate Aminotransferase 20 U/L (15-37); Beta Hydroxybutyric Acid 9.96 mmol/L (0.00-0.39); Blood Urea Nitrogen 19 mg/dL (7-18); Calcium 9.3 mg/dL (8.5-10.1); Carbon Dioxide 7.4 meq/L (21.0-32.0); Chloride 96 meq/L (98-107); Creatine Kinase 45 U/L (39-308); Glomerular Filtration Rate 85 mL/min (>89); Glucose,Random 442 mg/dL (74-106); Lipase 108 U/L (73-393); Magnesium 2.3 mg/dL (1.5-2.5); Potassium 5.1 meq/L (3.5-5.1); Sodium 127 meq/L (136-145); Total Protein 9.4 g/dL (6.4-8.2)
[2018-08-11] MEDS ORDERED: Insulin Regular (For Infusion) 100 UNIT in Sodium Chlor 0.9% Inj 99 ML IV.CONT PRN ×2 (21:44→22:05)
[2018-08-11] MEDS ORDERED: Potassium Chlor 20 mEq Premix 20 MEQ/100 ML PIGGYBACK IV.SIG PRN ×4 (22:05)
[2018-08-11] MEDS ORDERED: Potassium Chlor 40 mEq Premix 40 MEQ/100 ML PIGGYBACK IV.SIG PRN ×2 (22:05)
[2018-08-11] MEDS ORDERED: Sodium Phosphate Inj 15 MMOL in Sodium Chlor 0.9% Inj 100 ML IV.SIG PRN (22:05)
[2018-08-11] MEDS: Sod Chloride 0.9% Inj 1,000 ML IV.CONT SCH ×2 (22:21→22:26)
--- NOTE | 2018-08-11 22:46 | P.HPIM ---
History of Present Illness Primary Care Physician: UNKNOWN History of Present Illness: 22-year-old male with a history of type I diabetes mellitus, noncompliance who presents with nausea, weakness, dull headache, having run out of insulin 2 days ago. Review of Systems Review of systems attempted but is limited secondary to shortness of breath. Patient denies fever, chills, chest pain, shortness of breath, diarrhea, constipation. PMFSH - History History Provided By: Patient - Medical History Medical History: Medical History (Last Reviewed 08/11/18 @ 22:38 by Ck Gonzalez MD) Diabetes - Surgical History Surgical History: Surgical History (Last Reviewed 08/11/18 @ 22:38 by Ck Gonzalez MD) No history of previous surgery - Family History Family History: Family History (Last Reviewed 08/11/18 @ 22:38 by Ck Gonzalez MD) Other Family history of diabetes mellitus - Tobacco History Second Hand Smoke Exposure: Yes Tobacco Use In Past 30 Days: Yes Smoking Status: Current every day smoker Tobacco Type: Cigarettes - Alcohol History How Often Do You Have a Drink Containing Alcohol: Never - Substance Use History Substance History: Past History - Travel History Recent Travel in the [place] Within the Last 8 Weeks: No Recent Travel Out of the Country Within the Last 8 Weeks: No - Immunization History Tetanus Immunization: >5 Years Medications and Allergies Active Medications: Active Medications Chlorhexidine Gluconate (Chlorhexidine 2% Cloth) 3 pack TOPICAL DAILY@0400 DAMARIS Stop: 08/17/18 03:59 Chlorhexidine Gluconate (Chlorhexidine 2% Cloth) 3 pack TOPICAL DAILY@0400 PRN PRN Reason: Extra cloth needed Stop: 08/17/18 03:59 Dextrose (D50w Vial) 50 ml IV.PUSH UNSCH PRN PRN Reason: PER HYPOGLYCEMIA PROTOCOL Sodium Chloride (Ns Inj) 1,000 mls @ 0 mls/hr IV.SIG BOLUS DAMARIS Sodium Chloride (Ns Inj) 1,000 mls @ 0 mls/hr IV.SIG BOLUS DAMARIS Insulin Human Regular 100 unit (/ Sodium Chloride) 100 mls @ 8 mls/hr IV.CONT TITRATE PRN; Protocol PRN Reason: See protocol Last Admin: 08/11/18 21:45 Dose: 8 units/hr, 8 mls/hr Dextrose/Sodium Chloride (D5w/Normal Saline Inj) 1,000 mls @ 200 mls/hr IV.CONT .[facility]H [facility] Insulin Human Regular 100 unit (/ Sodium Chloride) 100 mls @ 8 mls/hr IV.CONT TITRATE PRN; Protocol PRN Reason: See protocol Sodium Chloride (Ns Inj) 1,000 mls @ 250 mls/hr IV.CONT .Q4H [facility] Last Admin: 08/11/18 22:26 Dose: 250 mls/hr Potassium Chloride (Kcl 40 Meq Premix Inj) 40 meq in 100 mls @ 100 mls/hr IV.SIG Q1H PRN PRN Reason: for Initial K+ ONLY < 3.5 Potassium Chloride (Kcl 40 Meq Premix Inj) 40 meq in 100 mls @ 50 mls/hr IV.SIG Q2H PRN PRN Reason: for Subsequent K+ < 3.5 Potassium Chloride (Kcl 20 Meq Premix Inj) 20 meq in 100 mls @ 100 mls/hr IV.SIG Q1H PRN PRN Reason: for K+ 3.5 to 4.4 Potassium Chloride (Kcl 20 Meq Premix Inj) 20 meq in 100 mls @ 100 mls/hr IV.SIG Q1H PRN PRN Reason: for K+ 4.5 to 5 Potassium Chloride (Kcl 20 Meq Premix Inj) 20 meq in 100 mls @ 50 mls/hr IV.SIG Q2H PRN PRN Reason: for Initial K+ ONLY < 3.5 Potassium Chloride (Kcl 20 Meq Premix Inj) 20 meq in 100 mls @ 50 mls/hr IV.SIG Q2H PRN PRN Reason: for Subsequent K+ < 3.5 Potassium Chloride (Kcl 20 Meq Premix Inj) 20 meq in 100 mls @ 50 mls/hr IV.SIG Q2H PRN PRN Reason: for K+ 3.5 to 4.4 Sodium Phosphate 15 mmol/ (Sodium Chloride) 105 mls @ 25 mls/hr IV.SIG UNSCH PRN PRN Reason: for Phosphate Level < 1.0 Potassium Chloride (Kcl 20 Meq Premix Inj) 20 meq in 100 mls @ 50 mls/hr IV.SIG Q2H PRN PRN Reason: for K+ 4.5 to 5 Thiamine HCl 500 mg/ Sodium (Chloride) 255 mls @ 62.5 mls/hr IV.SIG ONCE ONE Stop: 08/12/18 03:04 Sodium Bicarbonate (Sodium Bicarbonate 8.4% Inj) 50 meq IV.PUSH UNSCH PRN PRN Reason: for pH 6.9 to 7.0 Sodium Bicarbonate (Sodium Bicarbonate 8.4% Inj) 100 meq IV.PUSH UNSCH PRN PRN Reason: for pH less than 6.9 Sodium Chloride (Ns Flush) 2 ml IV.FLUSH PRN PRN PRN Reason: FLUSH AFTER USING IV ACCESS Allergies Allergy/AdvReac Type Severity Reaction Status Date / Time No Known Allergies Allergy Verified 08/11/18 19:39 Exam Vital signs: Vital Signs 08/11/18 19:18 08/11/18 19:36 Pulse Rate 112 H 78 Respiratory Rate 23 Blood Pressure 126/74 Pulse Oximetry 98 99 Intake & Output 08/11/18 08/11/18 08/12/18 06:59 18:59 06:59 Intake Total 1999 Balance 1999 Weight 81.647 kg Intake: IV 1999 NS Inj 1,000 ML @ Wide Open IV. 1999 SIG BOLUS ONE Rx#:[id number] Narrative: GENERAL: Patient lying in bed. Somnolent, wakes up for exam. He is oriented to year and month. Maintaining [place] respirations SKIN: Warm and dry. HEAD: Atraumatic. Normocephalic. EYES: Pupils equal and round. No scleral icterus. No injection or drainage. ENT: No nasal bleeding or discharge. Mucous membranes pink and moist. NECK: Trachea midline. No JVD. CARDIOVASCULAR: Regular rate and rhythm. RESPIRATORY: No accessory muscle use. Clear to auscultation. Breath sounds equal bilaterally. GASTROINTESTINAL: Abdomen soft, non-tender, nondistended. Hepatic and splenic margins not palpable. MUSCULOSKELETAL: Extremities without clubbing, cyanosis, or edema. No obvious deformities. NEUROLOGICAL: No obvious cranial nerve deficits. Motor grossly within normal limits. Generalized weakness with 4 out of 5 strength bilateral upper and lower extremities. His dyspneic PSYCHIATRIC: Appropriate mood and affect; insight and judgment normal. Results - Labs CBC & Chem 7: 08/11/18 19:40 08/11/18 19:40 Labs: Short CBC 08/11/18 Range/Units 19:40 WBC 12.0 H (4.0-11.0) th/mm3 Hgb 15.3 (13.0-17.0) gm/dL Hct 46.9 (39.0-51.0) % Plt Count 322 (150-450) th/mm3 BMP 08/11/18 19:40 Sodium 127 L Potassium 5.1 Chloride 96 L Carbon Dioxide 7.4 L BUN 19 H Creatinine 1.07 Calcium 9.3 Cardiac Enzymes 08/11/18 Range/Units 19:40 Total Creatine Kinase 45 (39-308) U/L Troponin I Less than 0.02 L (0.02-0.05) ng/mL Liver Function 08/11/18 Range/Units 19:40 Total Bilirubin 0.4 (0.2-1.0) mg/dL AST 20 (15-37) U/L ALT 36 (12-78) U/L Alkaline Phosphatase 138 H (45-117) U/L Albumin 4.9 (3.4-5.0) g/dL Urine 08/11/18 Range/Units 19:40 Urine Color Straw (Yellw/Straw) Urine Clarity Clear (Clear) Urine pH 5.0 (5.0-8.5) Ur Specific [place] 1.025 (1.002-1.035) Urine Protein 100 H (Neg-Trace) mg/dL Urine Glucose (UA) 500 or greater (Negative) mg/dL - Imaging Impressions Chest X-Ray 08/11/18 19:32 CONCLUSION: 1. No acute cardiopulmonary disease. Caprini VTE Risk Assessment Caprini VTE Risk Assessment: No/Low Risk (score <= 1) Caprini Risk Assessment Model: Point Value = 1 Point Value = 2 Point Value = 3 Point Value = 5 Age 41-60 Minor surgery BMI > 25 kg/m2 Swollen legs Varicose veins or History of unexplained or recurrent spontaneous Oral contraceptives or hormone replacement Sepsis (< 1 month) Serious lung disease, including pneumonia (< 1 month) Abnormal pulmonary function Acute myocardial infarction Congestive heart failure (< 1 month) History of inflammatory bowel disease Medical patient at bed rest Age 61-74 Arthroscopic surgery Major open surgery (> 45 min) Laparoscopic surgery (> 45 min) Malignancy Confined to bed (> 72 hours) Immobilizing plaster cast Central venous access Age >= 75 History of VTE Family history of VTE Factor V Leiden Prothrombin [id number] Lupus anticoagulant Anticardiolipin antibodies Elevated serum homocysteine Heparin-induced thrombocytopenia Other congenital or acquired thrombophilia Stroke (< 1 month) Elective arthroplasty Hip, pelvis, or leg fracture Acute spinal cord injury (< 1 month) Prophylaxis Regimen: Total Risk Factor Score Risk Level Prophylaxis Regimen 0-1 Low Early ambulation 2 Moderate Order ONE of the following: *Sequential Compression Device (SCD) *Heparin 5000 units SQ BID 3-4 Higher Order ONE of the following medications: *Heparin 5000 units SQ TID *Enoxaparin/Lovenox 40 mg SQ daily (WT < 150 kg, CrCl > 30 mL/min) *Enoxaparin/Lovenox 30 mg SQ daily (WT < 150 kg, CrCl > 10-29 mL/min) *Enoxaparin/Lovenox 30 mg SQ BID (WT < 150 kg, CrCl > 30 mL/min) AND/OR *Sequential Compression Device (SCD) 5 or more Highest Order ONE of the following medications: *Heparin 5000 units SQ TID (Preferred with Epidurals) *Enoxaparin/Lovenox 40 mg SQ daily (WT < 150 kg, CrCl > 30 mL/min) *Enoxaparin/Lovenox 30 mg SQ daily (WT < 150 kg, CrCl > 10-29 mL/min) *Enoxaparin/Lovenox 30 mg SQ BID (WT < 150 kg, CrCl > 30 mL/min) AND *Sequential Compression Device (SCD) Assessment and Plan - Plan //Acute diabetic ketoacidosis = Secondary to medication noncompliance ABG with bicarb of 6, pH of 7.12, PCO2 of 20. -Gap of 24 elevated beta hydroxybutyrate with normal lactic acid, normal CK. -No signs of acute infection Patient with 2 small respirations Bolus 4 units of IV insulin, start patient on insulin drip, DKA protocol. Monitor q. 6-hour electrolytes. //Hyponatremia. Corrected sodium 132. Monitor. //Leukocytosis. Likely reactive. Chest x-ray without any signs of infection. Urinalysis noninfectious. Likely secondary to stress from DKA. Continue to monitor for signs of infection. Discussed Condition With: Patient, nurse, ED physician, esl professor.
[2018-08-11] MEDS ORDERED: Thiamine Inj 500 MG in Sodium Chlor 0.9% Inj 250 ML IV.SIG ONE (23:00)
[2018-08-11 23:12] LABS: ABG Base Excess -24.1 mmol/L (-2-2); ABG PCO2 13 mmHg (38-42); ABG PO2 132 mmHg (61-120)
[2018-08-11] MEDS: Dextrose 5%/NaCl 0.9% Inj 1,000 ML IV.CONT SCH (23:21)
[2018-08-11 23:29] LABS: Amphetamine Screen,Urine Neg (Neg); Barbiturate Screen,Urine Neg (Neg); Cannabinoid Screen,Urine Neg (Neg); Cocaine Screen,Urine Neg (Neg)
[2018-08-11 23:39] LABS: Opiate Screen,Urine Neg (Neg)
[2018-08-12] MEDS: Sod Chloride 0.9% Inj 1,000 ML IV.CONT SCH ×5 (02:35→18:50)
[2018-08-12] MEDS ORDERED: Chlorhexidine Gluconate 2% 1 Pack (2 Cloths) TOPICAL PRN (04:00)
[2018-08-12 04:49] LABS: Anion Gap 13 meq/L (5-15); Blood Urea Nitrogen 14 mg/dL (7-18); Calcium 8.3 mg/dL (8.5-10.1); Carbon Dioxide 14.8 meq/L (21.0-32.0); Chloride 111 meq/L (98-107); Glomerular Filtration Rate Greater Than 89 mL/min (>89); Glucose,Random 126 mg/dL (74-106); Phosphorus 3.3 mg/dL (2.5-4.9); Potassium 4.1 meq/L (3.5-5.1); Sodium 139 meq/L (136-145)
[2018-08-12] MEDS: Dextrose 5%/NaCl 0.9% Inj 1,000 ML IV.CONT SCH ×5 (05:00→18:50)
[2018-08-12] MEDS: Chlorhexidine Gluconate 2% 1 Pack (2 Cloths) TOPICAL SCH (05:41)
--- NOTE | 2018-08-12 08:26 | P.PN ---
Subjective Interval history: Patient doing well. Patient reports that he still feels weak and tired, and has no interest in eating breakfast at this time. Patient reports that he does feel better compared to height on admission. Patient denies chest pain shortness of breath. Physical Exam Vital signs: Vital Signs 08/11/18 19:18 08/11/18 19:36 08/11/18 21:00 Pulse Rate 112 H 78 115 H Respiratory Rate 23 18 Blood Pressure 126/74 134/74 Pulse Oximetry 98 99 100 08/11/18 23:00 08/12/18 01:00 08/12/18 02:30 Pulse Rate 117 H 97 H 105 H Respiratory Rate 17 20 Blood Pressure 128/69 118/60 Pulse Oximetry 100 98 08/12/18 03:00 08/12/18 04:00 08/12/18 05:00 Pulse Rate 102 H 100 H 100 H Respiratory Rate 20 19 19 Blood Pressure 121/68 120/70 118/67 Pulse Oximetry 97 97 98 08/12/18 06:00 Pulse Rate 97 H Respiratory Rate 15 Blood Pressure 101/56 L Pulse Oximetry 98 Intake & Output 08/11/18 08/12/18 08/12/18 18:59 06:59 18:59 Intake Total 3505 / 3505 Output Total 1200 / 1200 Balance 2305 / 2305 Weight 68.8 kg Intake: IV 3505 / 3505 D5W/Normal Saline Inj 1,000 ML 1000 / 1000 @ 200 mls/hr IV.CONT .Q5H DAMARIS Rx#:[id number] NS Inj 1,000 ML @ 250 mls/hr IV 250 / 250 .CONT .Q4H DAMARIS Rx#:[id number] NS Inj 1,000 ML @ Wide Open IV. 1999 / 1999 SIG BOLUS ONE Rx#:[id number] Thiamine Inj 500 MG In NS Inj 255 / 255 250 ML @ 62.5 mls/hr IV.SIG ONCE ONE Rx#:[id number] Oral 0 / 0 Output: Urine 1200 / 1200 Other: # Voids 1 # Bowel Movements 0 Weight On Admission 68.8 kg Narrative: GENERAL: Thin male, lying comfortably in bed, in no acute distress SKIN: Warm and dry. HEENT: Normocephalic. Atraumatic. No scleral icterus. No injection or drainage. PERRLA, MOM. NECK: Supple, trachea midline. No JVD or lymphadenopathy. CARDIOVASCULAR: Regular rate and rhythm without murmurs, gallops, or rubs. RESPIRATORY: Breath sounds equal bilaterally. No accessory muscle use. GASTROINTESTINAL: Abdomen soft, non-tender, nondistended. MUSCULOSKELETAL: No cyanosis, or edema. BACK: Nontender without obvious deformity. No CVA tenderness. NEURO/PSYCH: AAO x3, no focal deficits, motor strength 5/5 x 4, speech clear. Results - Labs CBC & Chem 7: 08/11/18 19:40 08/12/18 03:06 Laboratory Results - last 24 hr 08/11/18 08/11/18 08/11/18 19:26 19:40 19:40 WBC 12.0 H RBC 5.28 Hgb 15.3 Hct 46.9 MCV 88.8 MCH 29.1 MCHC 32.7 RDW 14.0 Plt Count 322 MPV 8.4 Prelim Diff (Auto) Slide review pending Neut % (Auto) 65.1 Lymph % (Auto) 26.0 [place] % (Auto) 8.4 H Eos % (Auto) 0.2 Baso % (Auto) 0.3 Neut # (Auto) 7.8 H Lymph # (Auto) 3.1 [place] # (Auto) 1.0 H Eos # (Auto) 0.0 Baso # (Auto) 0.0 WBC Differential Manual diff final Seg Neuts % (Manual) 54 Band Neuts % (Manual) 2 Lymphocytes % (Manual) 36 Monocytes % (Manual) 8 Abs Neuts (Manual) 6.7 Differential Comment . Platelet Estimate Normal Platelet Morphology Normal RBC Morphology Normal Puncture Site Iv Patient Temperature 98.6 O2 Saturation ABG pH ABG pCO2 ABG pO2 ABG HCO3 ABG O2 Content ABG Base Excess ABG Methemoglobin Martin Test VBG pH 7.12 L* VBG pCO2 20 L VBG pO2 56 H VBG HCO3 6 L* VBG O2 Saturation 78 H VBG O2 Content 17.5 H VBG Base Excess -21.4 L VBG Carboxyhemoglobin 2.7 VBG Methemoglobin 1.1 Hemoglobin 16.1 H Carboxyhemoglobin Inspired O2 21 Critical Value Yes Sodium 127 L Potassium 5.1 Chloride 96 L Carbon Dioxide 7.4 L Anion Gap 24 H BUN 19 H Creatinine 1.07 Estimated GFR 85 L POC Glucose Random Glucose 442 H Lactic Acid Calcium 9.3 Prot Corrected Calcium Phosphorus Magnesium 2.3 Total Bilirubin 0.4 AST 20 ALT 36 Alkaline Phosphatase 138 H Total Creatine Kinase 45 Troponin I Less than 0.02 L Total Protein 9.4 H Albumin 4.9 Lipase 108 Beta-Hydroxybutyric Acd 9.96 H Urine Color Urine Clarity Urine pH Ur Specific [place] Urine Protein Urine Glucose (UA) Urine Ketones Urine Occult Blood Urine Nitrate Urine Bilirubin Urine Urobilinogen Ur Leukocyte Esterase Urine WBC Urine Mucus Micro UA Comment Ur Microscopic Review Urine Culture Comments Nasal Screen MRSA (PCR) Urine Opiates Screen Ur Barbiturates Screen Ur Amphetamines Screen U Benzodiazepines Scrn Urine Cocaine Screen U Cannabinoids Screen 08/11/18 08/11/18 08/11/18 19:40 19:40 19:40 WBC RBC Hgb Hct MCV MCH MCHC RDW Plt Count MPV Prelim Diff (Auto) Neut % (Auto) Lymph % (Auto) [place] % (Auto) Eos % (Auto) Baso % (Auto) Neut # (Auto) Lymph # (Auto) [place] # (Auto) Eos # (Auto) Baso # (Auto) WBC Differential Seg Neuts % (Manual) Band Neuts % (Manual) Lymphocytes % (Manual) Monocytes % (Manual) Abs Neuts (Manual) Differential Comment Platelet Estimate Platelet Morphology RBC Morphology Puncture Site Patient Temperature O2 Saturation ABG pH ABG pCO2 ABG pO2 ABG HCO3 ABG O2 Content ABG Base Excess ABG Methemoglobin Martin Test VBG pH VBG pCO2 VBG pO2 VBG HCO3 VBG O2 Saturation VBG O2 Content VBG Base Excess VBG Carboxyhemoglobin VBG Methemoglobin Hemoglobin Carboxyhemoglobin Inspired O2 Critical Value Sodium Potassium Chloride Carbon Dioxide Anion Gap BUN Creatinine Estimated GFR POC Glucose Random Glucose Lactic Acid 1.0 Calcium Prot Corrected Calcium Phosphorus Magnesium Total Bilirubin AST ALT Alkaline Phosphatase Total Creatine Kinase Troponin I Total Protein Albumin Lipase Beta-Hydroxybutyric Acd Urine Color Straw Urine Clarity Clear Urine pH 5.0 Ur Specific [place] 1.025 Urine Protein 100 H Urine Glucose (UA) 500 or greater Urine Ketones 80 or greater H Urine Occult Blood Negative Urine Nitrate Negative Urine Bilirubin Negative Urine Urobilinogen Less than 2 Ur Leukocyte Esterase Negative Urine WBC Less than 1 Urine Mucus Few H Micro UA Comment Culture not ind Ur Microscopic Review Not Reportable Urine Culture Comments Culture not ind Nasal Screen MRSA (PCR) Urine Opiates Screen Neg Ur Barbiturates Screen Neg Ur Amphetamines Screen Neg U Benzodiazepines Scrn Neg Urine Cocaine Screen Neg U Cannabinoids Screen Neg 08/11/18 08/11/18 08/11/18 19:40 22:45 23:10 WBC RBC Hgb Hct MCV MCH MCHC RDW Plt Count MPV Prelim Diff (Auto) Neut % (Auto) Lymph % (Auto) [place] % (Auto) Eos % (Auto) Baso % (Auto) Neut # (Auto) Lymph # (Auto) [place] # (Auto) Eos # (Auto) Baso # (Auto) WBC Differential Seg Neuts % (Manual) Band Neuts % (Manual) Lymphocytes % (Manual) Monocytes % (Manual) Abs Neuts (Manual) Differential Comment Platelet Estimate Platelet Morphology RBC Morphology Puncture Site Left radial Patient Temperature 98.6 O2 Saturation 95 ABG pH 7.11 L* ABG pCO2 13 L* ABG pO2 132 H ABG HCO3 4 L* ABG O2 Content 19.3 ABG Base Excess -24.1 L ABG Methemoglobin 0.9 Martin Test Present VBG pH VBG pCO2 VBG pO2 VBG HCO3 VBG O2 Saturation VBG O2 Content VBG Base Excess VBG Carboxyhemoglobin VBG Methemoglobin Hemoglobin 14.3 Carboxyhemoglobin 1.8 Inspired O2 21 Critical Value Yes Sodium Cancelled Potassium Cancelled Chloride Cancelled Carbon Dioxide Cancelled Anion Gap Cancelled BUN Cancelled Creatinine Cancelled Estimated GFR Cancelled POC Glucose 244 H Random Glucose Cancelled Lactic Acid Calcium Cancelled Prot Corrected Calcium Cancelled Phosphorus 5.3 H Magnesium Total Bilirubin Cancelled AST Cancelled ALT Cancelled Alkaline Phosphatase Cancelled Total Creatine Kinase Troponin I Total Protein Cancelled Albumin Cancelled Lipase Beta-Hydroxybutyric Acd Urine Color Urine Clarity Urine pH Ur Specific [place] Urine Protein Urine Glucose (UA) Urine Ketones Urine Occult Blood Urine Nitrate Urine Bilirubin Urine Urobilinogen Ur Leukocyte Esterase Urine WBC Urine Mucus Micro UA Comment Ur Microscopic Review Urine Culture Comments Nasal Screen MRSA (PCR) Urine Opiates Screen Ur Barbiturates Screen Ur Amphetamines Screen U Benzodiazepines Scrn Urine Cocaine Screen U Cannabinoids Screen 08/12/18 08/12/18 08/12/18 00:05 00:16 01:16 WBC RBC Hgb Hct MCV MCH MCHC RDW Plt Count MPV Prelim Diff (Auto) Neut % (Auto) Lymph % (Auto) [place] % (Auto) Eos % (Auto) Baso % (Auto) Neut # (Auto) Lymph # (Auto) [place] # (Auto) Eos # (Auto) Baso # (Auto) WBC Differential Seg Neuts % (Manual) Band Neuts % (Manual) Lymphocytes % (Manual) Monocytes % (Manual) Abs Neuts (Manual) Differential Comment Platelet Estimate Platelet Morphology RBC Morphology Puncture Site Patient Temperature O2 Saturation ABG pH ABG pCO2 ABG pO2 ABG HCO3 ABG O2 Content ABG Base Excess ABG Methemoglobin Martin Test VBG pH VBG pCO2 VBG pO2 VBG HCO3 VBG O2 Saturation VBG O2 Content VBG Base Excess VBG Carboxyhemoglobin VBG Methemoglobin Hemoglobin Carboxyhemoglobin Inspired O2 Critical Value Sodium Potassium Chloride Carbon Dioxide Anion Gap BUN Creatinine Estimated GFR POC Glucose 190 H 172 H Random Glucose Lactic Acid Calcium Prot Corrected Calcium Phosphorus Magnesium Total Bilirubin AST ALT Alkaline Phosphatase Total Creatine Kinase Troponin I Total Protein Albumin Lipase Beta-Hydroxybutyric Acd Urine Color Urine Clarity Urine pH Ur Specific [place] Urine Protein Urine Glucose (UA) Urine Ketones Urine Occult Blood Urine Nitrate Urine Bilirubin Urine Urobilinogen Ur Leukocyte Esterase Urine WBC Urine Mucus Micro UA Comment Ur Microscopic Review Urine Culture Comments Nasal Screen MRSA (PCR) Not detected Urine Opiates Screen Ur Barbiturates Screen Ur Amphetamines Screen U Benzodiazepines Scrn Urine Cocaine Screen U Cannabinoids Screen 08/12/18 08/12/18 08/12/18 02:26 03:06 03:13 WBC RBC Hgb Hct MCV MCH MCHC RDW Plt Count MPV Prelim Diff (Auto) Neut % (Auto) Lymph % (Auto) [place] % (Auto) Eos % (Auto) Baso % (Auto) Neut # (Auto) Lymph # (Auto) [place] # (Auto) Eos # (Auto) Baso # (Auto) WBC Differential Seg Neuts % (Manual) Band Neuts % (Manual) Lymphocytes % (Manual) Monocytes % (Manual) Abs Neuts (Manual) Differential Comment Platelet Estimate Platelet Morphology RBC Morphology Puncture Site Patient Temperature O2 Saturation ABG pH ABG pCO2 ABG pO2 ABG HCO3 ABG O2 Content ABG Base Excess ABG Methemoglobin Martin Test VBG pH VBG pCO2 VBG pO2 VBG HCO3 VBG O2 Saturation VBG O2 Content VBG Base Excess VBG Carboxyhemoglobin VBG Methemoglobin Hemoglobin Carboxyhemoglobin Inspired O2 Critical Value Sodium 139 D Potassium 4.1 D Chloride 111 H D Carbon Dioxide 14.8 L Anion Gap 13 BUN 14 Creatinine 0.91 Estimated GFR Greater than 89 POC Glucose 140 H 155 H Random Glucose 126 H D Lactic Acid Calcium 8.3 L D Prot Corrected Calcium Phosphorus 3.3 D Magnesium Total Bilirubin AST ALT Alkaline Phosphatase Total Creatine Kinase Troponin I Total Protein Albumin Lipase Beta-Hydroxybutyric Acd Urine Color Urine Clarity Urine pH Ur Specific [place] Urine Protein Urine Glucose (UA) Urine Ketones Urine Occult Blood Urine Nitrate Urine Bilirubin Urine Urobilinogen Ur Leukocyte Esterase Urine WBC Urine Mucus Micro UA Comment Ur Microscopic Review Urine Culture Comments Nasal Screen MRSA (PCR) Urine Opiates Screen Ur Barbiturates Screen Ur Amphetamines Screen U Benzodiazepines Scrn Urine Cocaine Screen U Cannabinoids Screen 08/12/18 08/12/18 08/12/18 04:16 04:49 05:34 WBC RBC Hgb Hct MCV MCH MCHC RDW Plt Count MPV Prelim Diff (Auto) Neut % (Auto) Lymph % (Auto) [place] % (Auto) Eos % (Auto) Baso % (Auto) Neut # (Auto) Lymph # (Auto) [place] # (Auto) Eos # (Auto) Baso # (Auto) WBC Differential Seg Neuts % (Manual) Band Neuts % (Manual) Lymphocytes % (Manual) Monocytes % (Manual) Abs Neuts (Manual) Differential Comment Platelet Estimate Platelet Morphology RBC Morphology Puncture Site Patient Temperature O2 Saturation ABG pH ABG pCO2 ABG pO2 ABG HCO3 ABG O2 Content ABG Base Excess ABG Methemoglobin Martin Test VBG pH VBG pCO2 VBG pO2 VBG HCO3 VBG O2 Saturation VBG O2 Content VBG Base Excess VBG Carboxyhemoglobin VBG Methemoglobin Hemoglobin Carboxyhemoglobin Inspired O2 Critical Value Sodium Potassium Chloride Carbon Dioxide Anion Gap BUN Creatinine Estimated GFR POC Glucose 132 H 126 H 155 H Random Glucose Lactic Acid Calcium Prot Corrected Calcium Phosphorus Magnesium Total Bilirubin AST ALT Alkaline Phosphatase Total Creatine Kinase Troponin I Total Protein Albumin Lipase Beta-Hydroxybutyric Acd Urine Color Urine Clarity Urine pH Ur Specific [place] Urine Protein Urine Glucose (UA) Urine Ketones Urine Occult Blood Urine Nitrate Urine Bilirubin Urine Urobilinogen Ur Leukocyte Esterase Urine WBC Urine Mucus Micro UA Comment Ur Microscopic Review Urine Culture Comments Nasal Screen MRSA (PCR) Urine Opiates Screen Ur Barbiturates Screen Ur Amphetamines Screen U Benzodiazepines Scrn Urine Cocaine Screen U Cannabinoids Screen 08/12/18 08/12/18 06:40 07:40 WBC RBC Hgb Hct MCV MCH MCHC RDW Plt Count MPV Prelim Diff (Auto) Neut % (Auto) Lymph % (Auto) [place] % (Auto) Eos % (Auto) Baso % (Auto) Neut # (Auto) Lymph # (Auto) [place] # (Auto) Eos # (Auto) Baso # (Auto) WBC Differential Seg Neuts % (Manual) Band Neuts % (Manual) Lymphocytes % (Manual) Monocytes % (Manual) Abs Neuts (Manual) Differential Comment Platelet Estimate Platelet Morphology RBC Morphology Puncture Site Patient Temperature O2 Saturation ABG pH ABG pCO2 ABG pO2 ABG HCO3 ABG O2 Content ABG Base Excess ABG Methemoglobin Martin Test VBG pH VBG pCO2 VBG pO2 VBG HCO3 VBG O2 Saturation VBG O2 Content VBG Base Excess VBG Carboxyhemoglobin VBG Methemoglobin Hemoglobin Carboxyhemoglobin Inspired O2 Critical Value Sodium Potassium Chloride Carbon Dioxide Anion Gap BUN Creatinine Estimated GFR POC Glucose 173 H 178 H Random Glucose Lactic Acid Calcium Prot Corrected Calcium Phosphorus Magnesium Total Bilirubin AST ALT Alkaline Phosphatase Total Creatine Kinase Troponin I Total Protein Albumin Lipase Beta-Hydroxybutyric Acd Urine Color Urine Clarity Urine pH Ur Specific [place] Urine Protein Urine Glucose (UA) Urine Ketones Urine Occult Blood Urine Nitrate Urine Bilirubin Urine Urobilinogen Ur Leukocyte Esterase Urine WBC Urine Mucus Micro UA Comment Ur Microscopic Review Urine Culture Comments Nasal Screen MRSA (PCR) Urine Opiates Screen Ur Barbiturates Screen Ur Amphetamines Screen U Benzodiazepines Scrn Urine Cocaine Screen U Cannabinoids Screen - Imaging Impressions Chest X-Ray 08/11/18 19:32 CONCLUSION: 1. No acute cardiopulmonary disease. Assessment and Plan - Assessment (1) Diabetic keto-acidosis Code(s): E13.10 - Other specified diabetes mellitus with ketoacidosis without coma Status: Acute - Plan This 22-year-old male with a significant past medical history admitted for inpatient management of diabetic ketoacidosis, HD #2 1. DKA VSS Initial glucose 442, BS now 178, K 4.1 AG now closed however will continue Insulin Drip per protocol, plan to transition to Insulin SQ at lunch Patient still sleepy with no interest in breakfast Beta Hydroxybutyrate 9.96 on admission, pending AM labs Plan to cont. IVF Once off Insulin Drip can transfer to medical floor 2. Leukocytosis WBC 12.1 on admission Likely stress reaction due to DKA Patient afebrile, no signs of infection Neg UA, Neg CXR 3. Disposition: Plan to transition to SQ insulin and stop the drip at lunchtime as long as patient has an appetite. Code Status: full Discussed Condition With: patient, RN (1) Diabetic keto-acidosis Qualifiers: Diabetes mellitus type: type 1 Diabetes mellitus complication detail: without coma Qualified Code(s): E10.10 - Type 1 diabetes mellitus with ketoacidosis without coma
[2018-08-12 09:11] LABS: Baso % (Auto) 0.1 % (0.0-2.0); Eos # (Auto) 0.1 th/mm3 (0.0-0.4); Eos % (Auto) 1.1 % (0.0-4.0); Hematocrit 38.4 % (39.0-51.0); Hemoglobin 13.1 gm/dL (13.0-17.0); Lymph # (Auto) 2.3 th/mm3 (1.0-4.8); Lymph % (Auto) 34.2 % (9.0-44.0); Mean Corpuscular HGB Conc 34.1 % (32.0-36.0); Mean Corpuscular Hemoglobin 29.1 pg (27.0-34.0); Mean Corpuscular Volume 85.4 fL (80.0-100.0); Mean Platelet Volume 7.5 fL (7.0-11.0); Mono # (Auto) 0.7 th/mm3 (0.0-0.9); Mono % (Auto) 9.6 % (0.0-8.0); Neut # (Auto) 3.7 th/mm3 (1.8-7.7); Platelet Count 251 th/mm3 (150-450); Red Cell Distribution Width 13.7 % (11.6-17.2); White Blood Count 6.8 th/mm3 (4.0-11.0)
[2018-08-12 12:31] LABS: Anion Gap 11 meq/L (5-15); Blood Urea Nitrogen 11 mg/dL (7-18); Carbon Dioxide 19.5 meq/L (21.0-32.0); Chloride 111 meq/L (98-107); Glomerular Filtration Rate Greater Than 89 mL/min (>89); Glucose,Random 163 mg/dL (74-106); Phosphorus 2.6 mg/dL (2.5-4.9); Potassium 3.3 meq/L (3.5-5.1); Sodium 141 meq/L (136-145)
--- NOTE | 2018-08-12 15:17 | ECG ---
Date Performed: 08/12/2018 Time Performed: 09:01:11 PTAGE: 22 years EKG: SINUS TACHYCARDIA MODERATE T-WAVE ABNORMALITY, CONSIDER ANTERIOR ISCHEMIA Since the previou s tracing, no significant change noted ABNORMAL ECG PREVIOUS TRACING : 07/02/2018 10.52 DOCTOR: Charles Cisse Interpretating Date/Time 08/12/2018 15:00:55
[2018-08-12 15:40] LABS: Anion Gap 11 meq/L (5-15); Blood Urea Nitrogen 9 mg/dL (7-18); Calcium 7.9 mg/dL (8.5-10.1); Carbon Dioxide 17.9 meq/L (21.0-32.0); Chloride 112 meq/L (98-107); Glomerular Filtration Rate Greater Than 89 mL/min (>89); Glucose,Random 168 mg/dL (74-106); Potassium 3.7 meq/L (3.5-5.1); Sodium 141 meq/L (136-145)
[2018-08-12] MEDS: Potassium Chlor 20 mEq Premix 20 MEQ/100 ML PIGGYBACK IV.SIG PRN (16:16)
[2018-08-12] MEDS ORDERED: Dextrose 50% in Water 50 ML Vial IV.PUSH PRN (17:28)
[2018-08-12] MEDS ORDERED: Insulin NovoLIN Regular Correctional Sugar Inj SQ SCH (21:00)
[2018-08-12 21:53] LABS: Anion Gap 11 meq/L (5-15); Blood Urea Nitrogen 8 mg/dL (7-18); Calcium 8.3 mg/dL (8.5-10.1); Carbon Dioxide 19.7 meq/L (21.0-32.0); Chloride 105 meq/L (98-107); Glomerular Filtration Rate Greater Than 89 mL/min (>89); Glucose,Random 265 mg/dL (74-106); Potassium 3.5 meq/L (3.5-5.1); Sodium 136 meq/L (136-145)
[2018-08-12 21:54] LABS: Phosphorus 1.6 mg/dL (2.5-4.9)
[2018-08-12] MEDS: Insulin NovoLIN Regular Correctional Sugar Inj SQ SCH (22:06)
[2018-08-13] MEDS: Sod Chloride 0.9% Inj 1,000 ML IV.CONT SCH ×4 (01:03→09:38)
[2018-08-13] MEDS: Dextrose 5%/NaCl 0.9% Inj 1,000 ML IV.CONT SCH ×5 (01:03→18:17)
[2018-08-13] MEDS: Insulin NovoLIN Regular Correctional Sugar Inj SQ SCH ×5 (04:37→21:01)
[2018-08-13] MEDS: Chlorhexidine Gluconate 2% 1 Pack (2 Cloths) TOPICAL SCH (04:38)
[2018-08-13 06:30] LABS: Baso % (Auto) 0.1 % (0.0-2.0); Eos # (Auto) 0.1 th/mm3 (0.0-0.4); Eos % (Auto) 2.3 % (0.0-4.0); Hematocrit 37.1 % (39.0-51.0); Hemoglobin 12.8 gm/dL (13.0-17.0); Lymph # (Auto) 2.5 th/mm3 (1.0-4.8); Lymph % (Auto) 38.8 % (9.0-44.0); Mean Corpuscular HGB Conc 34.5 % (32.0-36.0); Mean Corpuscular Hemoglobin 29.3 pg (27.0-34.0); Mean Corpuscular Volume 84.7 fL (80.0-100.0); Mean Platelet Volume 7.4 fL (7.0-11.0); Mono # (Auto) 0.6 th/mm3 (0.0-0.9); Mono % (Auto) 9.6 % (0.0-8.0); Neut # (Auto) 3.2 th/mm3 (1.8-7.7); Neut % (Auto) 49.2 % (16.0-70.0); Platelet Count 243 th/mm3 (150-450); Red Blood Count 4.38 mil/mm3 (4.50-5.90); White Blood Count 6.5 th/mm3 (4.0-11.0)
[2018-08-13 07:00] LABS: Alanine Aminotransferase 31 U/L (12-78); Albumin 3.3 g/dL (3.4-5.0); Alkaline Phosphatase 88 U/L (45-117); Anion Gap 12 meq/L (5-15); Aspartate Aminotransferase 37 U/L (15-37); Blood Urea Nitrogen 7 mg/dL (7-18); Calcium 8.4 mg/dL (8.5-10.1); Carbon Dioxide 22.5 meq/L (21.0-32.0); Chloride 105 meq/L (98-107); Glomerular Filtration Rate Greater Than 89 mL/min (>89); Glucose,Random 179 mg/dL (74-106); Sodium 139 meq/L (136-145); Total Protein 6.5 g/dL (6.4-8.2)
[2018-08-13 07:03] LABS: Potassium 2.8 meq/L (3.5-5.1)
[2018-08-13] MEDS: Potassium Chlor 20 mEq Premix 20 MEQ/100 ML PIGGYBACK IV.SIG PRN ×5 (07:25→13:39)
--- NOTE | 2018-08-13 11:31 | P.PN ---
Subjective Interval history: Patient doing well. Patient is tolerating p.o., voiding/stooling well. Patient has no concerns. Patient states that he buys insulin [id number] at [facility], and has not seen a doctor in years. Patient was diagnosed with type 1 diabetes at age 19. Physical Exam Vital signs: Vital Signs 08/12/18 11:49 08/12/18 12:00 08/12/18 12:19 Temperature 97.9 F Pulse Rate 87 88 81 Respiratory Rate 17 19 22 Blood Pressure 101/56 L 111/66 Pulse Oximetry 98 98 99 08/12/18 12:49 08/12/18 13:00 08/12/18 13:19 Temperature Pulse Rate 83 83 82 Respiratory Rate 19 19 17 Blood Pressure 113/66 113/67 Pulse Oximetry 100 98 99 08/12/18 13:49 08/12/18 14:00 08/12/18 14:19 Temperature Pulse Rate 78 79 86 Respiratory Rate 18 18 18 Blood Pressure 119/68 109/64 Pulse Oximetry 100 99 99 08/12/18 14:49 08/12/18 15:00 08/12/18 15:19 Temperature Pulse Rate 88 82 87 Respiratory Rate 21 18 19 Blood Pressure 117/65 104/58 L Pulse Oximetry 99 98 100 08/12/18 15:49 08/12/18 16:00 08/12/18 16:19 Temperature 97.7 F Pulse Rate 81 82 83 Respiratory Rate 20 19 19 Blood Pressure 104/58 L 98/58 L Pulse Oximetry 100 100 100 08/12/18 16:49 08/12/18 17:00 08/12/18 17:19 Temperature Pulse Rate 81 79 84 Respiratory Rate 17 18 17 Blood Pressure 105/57 L 117/67 Pulse Oximetry 100 99 99 08/12/18 17:49 08/12/18 18:00 08/12/18 18:15 Temperature Pulse Rate 90 99 H 100 H Respiratory Rate 25 H 22 22 Blood Pressure 120/73 Pulse Oximetry 100 99 100 08/12/18 18:19 08/12/18 19:00 08/12/18 20:00 Temperature Pulse Rate 87 86 Respiratory Rate 24 Blood Pressure 121/67 124/70 Pulse Oximetry 98 08/12/18 21:14 08/13/18 00:00 08/13/18 04:00 Temperature 97.4 F L 97.4 F L Pulse Rate 75 80 Respiratory Rate 20 17 Blood Pressure 116/68 103/62 Pulse Oximetry 98 100 97 08/13/18 08:00 Temperature 98.1 F Pulse Rate 72 Respiratory Rate 16 Blood Pressure 111/70 Pulse Oximetry 99 Intake & Output 08/12/18 08/13/18 08/13/18 18:59 06:59 18:59 Intake Total 2680 / 2680 720 / 720 100 / 100 Output Total 1750 / 1750 1700 / 1700 Balance 930 / 930 -980 / -980 100 / 100 Weight 68.7 kg Intake: IV 2200 / 2200 100 / 100 100 / 100 D5W/Normal Saline Inj 1,000 ML 2000 / 2000 @ 200 mls/hr IV.CONT .Q5H DAMARIS Rx#:[id number] KCl 20 mEq Premix Inj 20 meq In 200 / 200 100 / 100 100 / 100 100 ml @ 50 mls/hr IV.SIG Q2H PRN Rx#:[id number] Oral 480 / 480 620 / 620 Output: Urine 1750 / 1750 1700 / 1700 Stool 0 / 0 Other: # Bowel Movements 1 Narrative: GENERAL: Thin male, lying comfortably in bed, in no acute distress SKIN: Warm and dry. HEENT: Normocephalic. Atraumatic. No scleral icterus. No injection or drainage. PERRLA, MOM. NECK: Supple, trachea midline. No JVD or lymphadenopathy. CARDIOVASCULAR: Regular rate and rhythm without murmurs, gallops, or rubs. RESPIRATORY: Breath sounds equal bilaterally. No accessory muscle use. GASTROINTESTINAL: Abdomen soft, non-tender, nondistended. MUSCULOSKELETAL: No cyanosis, or edema. BACK: Nontender without obvious deformity. No CVA tenderness. NEURO/PSYCH: AAO x3, no focal deficits, motor strength 5/5 x 4, speech clear. Results - Labs CBC & Chem 7: 08/13/18 05:23 08/13/18 05:23 Laboratory Results - last 24 hr 08/12/18 08/12/18 08/12/18 11:35 11:54 13:05 WBC RBC Hgb Hct MCV MCH MCHC RDW Plt Count MPV Neut % (Auto) Lymph % (Auto) [place] % (Auto) Eos % (Auto) Baso % (Auto) Neut # (Auto) Lymph # (Auto) [place] # (Auto) Eos # (Auto) Baso # (Auto) WBC Differential Differential Comment Sodium 141 Potassium 3.3 L D Chloride 111 H Carbon Dioxide 19.5 L Anion Gap 11 BUN 11 Creatinine 0.86 Estimated GFR Greater than 89 POC Glucose 151 H 172 H Random Glucose 163 H Calcium 8.0 L Phosphorus 2.6 Total Bilirubin AST ALT Alkaline Phosphatase Total Protein Albumin Beta-Hydroxybutyric Acd 08/12/18 08/12/18 08/12/18 14:03 14:46 14:46 WBC RBC Hgb Hct MCV MCH MCHC RDW Plt Count MPV Neut % (Auto) Lymph % (Auto) [place] % (Auto) Eos % (Auto) Baso % (Auto) Neut # (Auto) Lymph # (Auto) [place] # (Auto) Eos # (Auto) Baso # (Auto) WBC Differential Differential Comment Sodium 141 Potassium 3.7 Chloride 112 H Carbon Dioxide 17.9 L Anion Gap 11 BUN 9 Creatinine 0.78 Estimated GFR Greater than 89 POC Glucose 143 H Random Glucose 168 H Calcium 7.9 L Phosphorus 2.0 L Total Bilirubin AST ALT Alkaline Phosphatase Total Protein Albumin Beta-Hydroxybutyric Acd 2.40 H D 08/12/18 08/12/18 08/12/18 15:09 16:07 17:09 WBC RBC Hgb Hct MCV MCH MCHC RDW Plt Count MPV Neut % (Auto) Lymph % (Auto) [place] % (Auto) Eos % (Auto) Baso % (Auto) Neut # (Auto) Lymph # (Auto) [place] # (Auto) Eos # (Auto) Baso # (Auto) WBC Differential Differential Comment Sodium Potassium Chloride Carbon Dioxide Anion Gap BUN Creatinine Estimated GFR POC Glucose 203 H 211 H 185 H Random Glucose Calcium Phosphorus Total Bilirubin AST ALT Alkaline Phosphatase Total Protein Albumin Beta-Hydroxybutyric Acd 08/12/18 08/12/18 08/12/18 18:45 21:02 21:42 WBC RBC Hgb Hct MCV MCH MCHC RDW Plt Count MPV Neut % (Auto) Lymph % (Auto) [place] % (Auto) Eos % (Auto) Baso % (Auto) Neut # (Auto) Lymph # (Auto) [place] # (Auto) Eos # (Auto) Baso # (Auto) WBC Differential Differential Comment Sodium 136 Potassium 3.5 Chloride 105 Carbon Dioxide 19.7 L Anion Gap 11 BUN 8 Creatinine 0.91 Estimated GFR Greater than 89 POC Glucose 390 H 220 H Random Glucose 265 H Calcium 8.3 L Phosphorus 1.6 L Total Bilirubin AST ALT Alkaline Phosphatase Total Protein Albumin Beta-Hydroxybutyric Acd 08/13/18 08/13/18 08/13/18 01:50 05:23 05:23 WBC 6.5 RBC 4.38 L Hgb 12.8 L Hct 37.1 L MCV 84.7 MCH 29.3 MCHC 34.5 RDW 14.0 Plt Count 243 MPV 7.4 Neut % (Auto) 49.2 Lymph % (Auto) 38.8 [place] % (Auto) 9.6 H Eos % (Auto) 2.3 Baso % (Auto) 0.1 Neut # (Auto) 3.2 Lymph # (Auto) 2.5 [place] # (Auto) 0.6 Eos # (Auto) 0.1 Baso # (Auto) 0.0 WBC Differential . Differential Comment Auto diff final Sodium 139 Potassium 2.8 L* Chloride 105 Carbon Dioxide 22.5 Anion Gap 12 BUN 7 Creatinine 0.67 Estimated GFR Greater than 89 POC Glucose 141 H Random Glucose 179 H Calcium 8.4 L Phosphorus Total Bilirubin 0.2 AST 37 ALT 31 Alkaline Phosphatase 88 Total Protein 6.5 D Albumin 3.3 L D Beta-Hydroxybutyric Acd 08/13/18 08/13/18 06:11 07:35 WBC RBC Hgb Hct MCV MCH MCHC RDW Plt Count MPV Neut % (Auto) Lymph % (Auto) [place] % (Auto) Eos % (Auto) Baso % (Auto) Neut # (Auto) Lymph # (Auto) [place] # (Auto) Eos # (Auto) Baso # (Auto) WBC Differential Differential Comment Sodium Potassium Chloride Carbon Dioxide Anion Gap BUN Creatinine Estimated GFR POC Glucose 185 H 209 H Random Glucose Calcium Phosphorus Total Bilirubin AST ALT Alkaline Phosphatase Total Protein Albumin Beta-Hydroxybutyric Acd Assessment and Plan - Assessment (1) Diabetic keto-acidosis Code(s): E13.10 - Other specified diabetes mellitus with ketoacidosis without coma Status: Acute - Plan This 22-year-old male with a significant past medical history admitted for inpatient management of diabetic ketoacidosis, HD #3 1. DKA, resolved Hx of Type I DM, Dx at age 19 VSS Initial glucose 442, BS now 141, 185 AG now closed, s/p Insulin Drip per protocol Beta Hydroxybutyrate 9.96 on admission, 2.40 on 08/13 HgbA1c pending Cont. NPH/R 70/30 30U BID (at home on 45U BID) and SSI Patient noncompliant and does not see a physician as an outpatient Buys insulin [id number] at [facility] product marketer consulted 2. Leukocytosis, resolved WBC 6.5 today from 12.1 on admission Likely stress reaction due to DKA Patient afebrile, no signs of infection Neg UA, Neg CXR 3. Hypokalemia Potassium 2.8 Will replace per protocol Repeat BMP at 1300 4. DVT PPX: SCD's 5. Disposition: Stable for transfer to floor pending bed. Discharge pending repeat potassium check and blood sugar throughout the day. Code Status: full Discussed Condition With: patient, RN (1) Diabetic keto-acidosis Qualifiers: Diabetes mellitus type: type 1 Diabetes mellitus complication detail: without coma Qualified Code(s): E10.10 - Type 1 diabetes mellitus with ketoacidosis without coma
[2018-08-13 15:51] LABS: Anion Gap 5 meq/L (5-15); Blood Urea Nitrogen 7 mg/dL (7-18); Calcium 8.9 mg/dL (8.5-10.1); Carbon Dioxide 28.6 meq/L (21.0-32.0); Chloride 107 meq/L (98-107); Glomerular Filtration Rate Greater Than 89 mL/min (>89); Glucose,Random 64 mg/dL (74-106); Potassium 3.6 meq/L (3.5-5.1); Sodium 141 meq/L (136-145)
[2018-08-13 17:02] LABS: Hemoglobin A1c 12.4 % (4.3-6.0)
[2018-08-13] MEDS ORDERED: Influenza (Quadrivalent) Vaccine 0.5 ML Syringe IM ONE (18:00)
[2018-08-14] MEDS ORDERED: Acetaminophen 325 MG Tablet PO PRN (02:22)
[2018-08-14] MEDS: Insulin NovoLIN Regular Correctional Sugar Inj SQ SCH ×2 (02:32→08:02)
[2018-08-14] MEDS: Chlorhexidine Gluconate 2% 1 Pack (2 Cloths) TOPICAL SCH (04:48)
[2018-08-14 07:09] LABS: Baso % (Auto) 0.1 % (0.0-2.0); Eos # (Auto) 0.1 th/mm3 (0.0-0.4); Hemoglobin 12.4 gm/dL (13.0-17.0); Lymph # (Auto) 2.3 th/mm3 (1.0-4.8); Lymph % (Auto) 35.7 % (9.0-44.0); Mean Corpuscular HGB Conc 35.5 % (32.0-36.0); Mean Corpuscular Hemoglobin 29.6 pg (27.0-34.0); Mean Corpuscular Volume 83.4 fL (80.0-100.0); Mean Platelet Volume 7.6 fL (7.0-11.0); Mono # (Auto) 0.7 th/mm3 (0.0-0.9); Neut # (Auto) 3.3 th/mm3 (1.8-7.7); Neut % (Auto) 51.2 % (16.0-70.0); Platelet Count 225 th/mm3 (150-450); Red Cell Distribution Width 13.7 % (11.6-17.2); White Blood Count 6.6 th/mm3 (4.0-11.0)
[2018-08-14 07:51] LABS: Alanine Aminotransferase 29 U/L (12-78); Albumin 3.2 g/dL (3.4-5.0); Anion Gap 11 meq/L (5-15); Aspartate Aminotransferase 26 U/L (15-37); Blood Urea Nitrogen 9 mg/dL (7-18); Calcium 8.5 mg/dL (8.5-10.1); Carbon Dioxide 26.4 meq/L (21.0-32.0); Chloride 99 meq/L (98-107); Glomerular Filtration Rate Greater Than 89 mL/min (>89); Glucose,Random 228 mg/dL (74-106); Potassium 3.3 meq/L (3.5-5.1); Sodium 136 meq/L (136-145)
[2018-08-14 07:52] LABS: Alkaline Phosphatase 86 U/L (45-117); Total Protein 6.4 g/dL (6.4-8.2)
--- NOTE | 2018-08-14 09:18 | P.DS ---
Date of admission: 08/11/18 22:04 Primary care physician: UNKNOWN Brief History from admission: 22-year-old male with a history of type I diabetes mellitus, noncompliance who presents with nausea, weakness, dull headache, having run out of insulin 2 days ago. Patient update on day of discharge: Patient tolerated diet doing well no other concerns wants to go home. States that he ran out of insulin was the reason he came in in DKA. DS: Diagnosis - Discharge Diagnosis (1) Diabetic keto-acidosis Status: Resolved Diagnosis: Principal (2) Diabetes mellitus type 1 with ketoacidosis Status: Chronic Diagnosis: Principal (3) Hyperglycemia Status: Chronic Diagnosis: Secondary DS: Medications - Discharge Medications Prescriptions: Novolin 70/30 U-100 Insulin 45 units SUB-Q BID #1 vial DS: Summary Hospital Course: 22-year-old white male was admitted for DKA and placed on insulin drip per DKA protocol in the intensive care unit. He was able to be transitioned off the insulin drip and placed on subcu insulin After ketoacidosis resolved. Hypokalemia was supplemented during the hospitalization. He was placed on NPH 70/30 45 subcu twice daily and had some hypoglycemic episodes secondary to being on a restricted diabetic diet here in the hospital. It was later changed to 20 units subcu twice daily to prevent hypoglycemia. It seems patient is taking more carbohydrates at home and therefore will be sent home and transition on NPH 70/ 30 45 units subcu twice daily. At this time, patient has gained maximum benefit from hospitalization ready to be transition to home. Medication was filled prior to discharge. - Time Spent with Patient Total time spent providing and/or coordinating discharge services: Less than 30 minutes - Quality: VTE Deep Vein Thrombosis/Pulmonary Embolism Present on Admission: No Exam Vital signs: Vital Signs 08/13/18 10:00 08/13/18 11:00 08/13/18 12:00 Temperature 98.4 F Pulse Rate 84 81 80 Respiratory Rate 20 22 21 Blood Pressure 114/65 115/73 105/65 Pulse Oximetry 99 99 97 08/13/18 13:00 08/13/18 14:00 08/13/18 15:00 Temperature Pulse Rate 99 H 88 78 Respiratory Rate 21 23 21 Blood Pressure 129/76 113/73 111/72 Pulse Oximetry 98 100 100 08/13/18 16:00 08/13/18 17:00 08/13/18 17:03 Temperature 98.4 F Pulse Rate 89 76 74 Respiratory Rate 17 22 21 Blood Pressure 92/49 L 79/49 L 90/56 L Pulse Oximetry 97 99 99 08/13/18 17:59 08/13/18 18:00 08/13/18 20:00 Temperature 98.3 F Pulse Rate 72 73 Respiratory Rate 20 21 Blood Pressure 99/63 L 107/59 L Pulse Oximetry 98 99 08/14/18 00:00 08/14/18 03:01 08/14/18 04:00 Temperature 98.6 F 98.1 F Pulse Rate 77 72 Respiratory Rate 19 18 21 Blood Pressure 116/78 99/59 L Pulse Oximetry 98 98 Intake & Output 08/13/18 08/14/18 08/14/18 18:59 06:59 18:59 Intake Total 1600 / 1600 2000 / 2000 Output Total 1500 / 1500 1700 / 1700 Balance 100 / 100 300 / 300 Weight 71.7 kg Intake: IV 400 / 400 NovoLIN R (IV Infusion) 100 0 / 0 UNIT In NS Inj 99 ML @ 8 UNITS/ HR 8 mls/hr IV.CONT TITRATE PRN Rx#:[id number] NS Inj 1,000 ML @ 250 mls/hr IV 0 / 0 .CONT .Q4H DAMARIS Rx#:[id number] KCl 20 mEq Premix Inj 20 meq In 400 / 400 100 ml @ 50 mls/hr IV.SIG Q2H PRN Rx#:[id number] Oral 1200 / 1200 2000 / 2000 Output: Urine 1500 / 1500 1700 / 1700 Other: Date of Last Bowel Movement 08/14/18 # Bowel Movements 0 2 Narrative: GENERAL: This is a well-nourished, well-developed patient, in no apparent distress. CARDIOVASCULAR: Regular rate and rhythm without murmurs, gallops, or rubs. RESPIRATORY: Clear to auscultation. Breath sounds equal bilaterally. No wheezes , rales, or rhonchi. GASTROINTESTINAL: Abdomen soft, non-tender, nondistended. Normal active bowel sounds MUSCULOSKELETAL: Extremities without clubbing, cyanosis, or edema. NEURO: Alert & Oriented x4 to person, place, time, situation. Moves all ext x4 Results Procedures completed during hospitalization: None Labs on day of discharge: Labs from last 24 hours 08/14/18 08/14/18 08/14/18 06:20 06:20 02:03 WBC 6.6 RBC 4.20 L Hgb 12.4 L Hct 35.0 L MCV 83.4 MCH 29.6 MCHC 35.5 RDW 13.7 Plt Count 225 MPV 7.6 Neut % (Auto) 51.2 Lymph % (Auto) 35.7 [place] % (Auto) 11.0 H Eos % (Auto) 2.0 Baso % (Auto) 0.1 Neut # (Auto) 3.3 Lymph # (Auto) 2.3 [place] # (Auto) 0.7 Eos # (Auto) 0.1 Baso # (Auto) 0.0 WBC Differential . Differential Comment Auto diff final Sodium 136 Potassium 3.3 L Chloride 99 D Carbon Dioxide 26.4 Anion Gap 11 BUN 9 Creatinine 0.58 L Estimated GFR Greater than 89 POC Glucose 86 Random Glucose 228 H D Hemoglobin A1c Calcium 8.5 Total Bilirubin 0.2 AST 26 ALT 29 Alkaline Phosphatase 86 Total Protein 6.4 Albumin 3.2 L 08/13/18 08/13/18 08/13/18 20:48 16:16 15:53 WBC RBC Hgb Hct MCV MCH MCHC RDW Plt Count MPV Neut % (Auto) Lymph % (Auto) [place] % (Auto) Eos % (Auto) Baso % (Auto) Neut # (Auto) Lymph # (Auto) [place] # (Auto) Eos # (Auto) Baso # (Auto) WBC Differential Differential Comment Sodium Potassium Chloride Carbon Dioxide Anion Gap BUN Creatinine Estimated GFR POC Glucose 383 H 202 H 55 L Random Glucose Hemoglobin A1c Calcium Total Bilirubin AST ALT Alkaline Phosphatase Total Protein Albumin 08/13/18 08/13/18 08/13/18 15:15 15:15 11:49 WBC RBC Hgb Hct MCV MCH MCHC RDW Plt Count MPV Neut % (Auto) Lymph % (Auto) [place] % (Auto) Eos % (Auto) Baso % (Auto) Neut # (Auto) Lymph # (Auto) [place] # (Auto) Eos # (Auto) Baso # (Auto) WBC Differential Differential Comment Sodium 141 Potassium 3.6 D Chloride 107 Carbon Dioxide 28.6 Anion Gap 5 BUN 7 Creatinine 0.62 Estimated GFR Greater than 89 POC Glucose 221 H Random Glucose 64 L D Hemoglobin A1c 12.4 H Calcium 8.9 Total Bilirubin AST ALT Alkaline Phosphatase Total Protein Albumin - Impressions ITS Impressions Chest X-Ray 08/11/18 19:32 CONCLUSION: 1. No acute cardiopulmonary disease. Discharge Plan - Discharge Disposition Patient Disposition: Discharge Home - Discharge Condition Condition: Stable - Discharge Order Discharge Orders: Discharge Order (Routine); Ordered 08/14/18 Ordered By: Rosa Maria Marcus - Discharge Details Anticipated Discharge Date: 08/14/18 - Physicians Team Primary Care Provider: UNKNOWN, Attending Provider: Rosa Maria Marcus
== END 2018-08-14 11:40 | disposition home or self-care (01) ==
LOC: NEPE 19:11 → NEDA 22:04 → N03 08-12 00:10
PROVIDERS: ADMIT Family Medicine; ATTEND Family Medicine